=== PATIENT | male | born 1985 | race Caucasian/White ===

== ENCOUNTER 2024-04-14 14:46 | Outpatient (AMB) | payer MEDICAID, SELFPAY ==
[2024-04-14 14:55] VITALS: BP 150/100; PULSE 101; O2SAT 96; BMI 34.7
--- NOTE | 2024-04-14 14:55 | HO.NEPHOV_ITS ---
Vital Signs 04/14/24 14:55 Height 5 ft 8 in Weight 228 lb 6 oz BMI 34.7 BP 150/100 H Blood Pressure Location Lt brachial Position Sitting Pulse 101 H Pulse Source Pulse Oximeter Pulse Oximetry (%) 96 Oxygen Delivery Method Room Air Intake Visit Reasons: Renal Infarct/ Conf Spring Internship Required: No Accompanied by: Self / Same As Patient Allergies No Known Allergies Allergy (Verified 04/14/24 14:58) HPI Comments Details: Thank you for referring Eyal in consultation for renal infarction. He presented to [facility] Emergency room with left flank pain. He underwent CT scan with contrast which showed renal infarction as well as mural thrombus in the left renal artery most likely secondary to dissection. He has history hypertension and has been on clonidine which he takes for his mental health treatment. He has history of cocaine use. He has no history of any peripheral arterial disease, DVT, autoimmune diseases, renal dysfunction, coronary artery disease, carotid stenosis, CVA, CHF or known LUDWIN. He underwent anticoagulation during the hospital stay and was seen by the vascular surgery team in [facility]. He was asked to continue his anticoagulation and follow-up with his PCP. He is currently pain free. He does not have any hematuria. His blood pressure remains uncontrolled. He denies chest pain, shortness of breath, paroxysmal nocturnal dyspnea, orthopnea, pedal edema, orthostatic symptoms, palpitation or urinary symptoms. [facility] Medical History (Updated 04/14/24 @ 20:40 by Jonathan Wall MD) Testicular cyst Elevated blood pressure reading Renal infarct Severe anxiety Hepatic steatosis Periportal lymphadenopathy History of cocaine use Bipolar depression Sleep apnea Gout Class 2 obesity Allergic rhinitis Degenerative arthritis of lumbar spine Internal hemorrhoid Surgical History (Updated 04/14/24 @ 15:10 by Rebecca Reinoso MA) History of vasectomy H/O: knee surgery Status post gastric banding Family History (Updated 04/14/24 @ 15:10 by Rebecca Reinoso MA) Mother Diabetes Breast cancer Brother Diabetes Social History (Updated 04/14/24 @ 15:12 by Rebecca Reionso MA) Alcohol intake: former Patient Tobacco Use Status: Current everyday Tobacco user Substance Use Type: Former Substance User and Marijuana Review of Systems Const All systems reviewed & are unremarkable except as noted in HPI and below Physical Exam Vital Signs: Last Vital Signs Pulse 101 H 04/14/24 14:55 BP 150/100 H 04/14/24 14:55 Pulse Ox 96 04/14/24 14:55 Oxygen Delivery Method Room Air 04/14/24 14:55 BMI result Body Mass Index 34.7 Const General: comfortable and no acute distress Orientation/consciousness: patient oriented x3 HEENT Head: Yes normocephalic Mouth: Normal oral and palatal mucosa present Eyes EOM: EOMs intact bilaterally Neck Neck: Yes supple Resp Auscultation: clear to auscultation bilaterally Cardio Jugular venous distension: no JVD Rate: regular rate GI Palpation (GI): Soft to palpation Auscultation: normal bowel sounds General: Yes no CVA tenderness Back/Spine/Pelvis Back: no CVA tenderness Skin General skin exam: no rashes or lesions noted Neuro General: patient oriented x3 and moves all extremities Extrem General: Yes no pedal edema Results Reviewed Nephrology Results: No Data to Display Assessment & Plan Assessment & Plan (1) Renal infarct: Code(s): N28.0 - Ischemia and infarction of kidney Category: Medical (2) Dissection of left renal artery: Code(s): I77.73 - Dissection of renal artery Category: Medical (3) Hypertension: Code(s): I10 - Essential (primary) hypertension Category: Medical Qualifiers: Hypertension type: primary hypertension Qualified Code(s): I10 - Essential (primary) hypertension Plan 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 His serum creatinine has gone up marginally from baseline. He was an ticoagulated initially with heparin which was subsequently switched to Xarelto. He has had history of cocaine use. He has a Hematology appointment pending. I referred him to Dr. Garcia who is the vascular surgeon in [facility]. He may need repeat imaging studies. Vascular surgery needs to evaluate whether he is a candidate for renal artery stenting. He should avoid nonsteroidal anti- inflammatories, maintain good hydration and keep his blood pressure at goal. Even though he has been on clonidine(which he takes for mental health treatment), his blood pressure remains uncontrolled. His fluctuant blood pressure currently renin mediated. I would not start him on on any KIMBERLY inhibitor or ARB at this moment but is a candidate for it in the future. I started him on amlodipine 5 mg once daily which could be titrated to 10 mg to keep his blood pressure at goal of less than 130/80 mmHg. Time spent retrieving all his imaging studies, medical record from [facility], current patient encounter and documentation 63 minutes. All questions answered. Follow-up appointment given. Orders: Orders Protein S Activity reflex Ag Today I10 - Essential (primary) hypertension, I77.73 - Dissection of renal artery, N28.0 - Ischemia and infarction of kidney Cardiolipin Antibodies Today I10 - Essential (primary) hypertension, I77.73 - Dissection of renal artery, N28.0 - Ischemia and infarction of kidney Lupus Anticoagulant Panel Today I10 - Essential (primary) hypertension, I77.73 - Dissection of renal artery, N28.0 - Ischemia and infarction of kidney Anti-Thrombin III Activity Today I10 - Essential (primary) hypertension, I77.73 - Dissection of renal artery, N28.0 - Ischemia and infarction of kidney Electrolytes Today I10 - Essential (primary) hypertension, I77.73 - Dissection of renal artery, N28.0 - Ischemia and infarction of kidney Creatinine Today I10 - Essential (primary) hypertension, I77.73 - Dissection of renal artery, N28.0 - Ischemia and infarction of kidney Protein C Activity Reflex Ag Today I10 - Essential (primary) hypertension, I77.73 - Dissection of renal artery, N28.0 - Ischemia and infarction of kidney Beta-2 Glycoprotein Antibody Today I10 - Essential (primary) hypertension, I77.73 - Dissection of renal artery, N28.0 - Ischemia and infarction of kidney Factor V Leiden Today I10 - Essential (primary) hypertension, I77.73 - Dissection of renal artery, N28.0 - Ischemia and infarction of kidney Blood Urea Nitrogen Today I10 - Essential (primary) hypertension, I77.73 - Dissection of renal artery, N28.0 - Ischemia and infarction of kidney UA and rflx microscopic Today I10 - Essential (primary) hypertension, I77.73 - Dissection of renal artery, N28.0 - Ischemia and infarction of kidney Lipid Panel Today I10 - Essential (primary) hypertension, I77.73 - Dissection of renal artery, N28.0 - Ischemia and infarction of kidney Referrals Vascular Surgery Referral I10 - Essential (primary) hypertension, I77.73 - Dissection of renal artery, N28.0 - Ischemia and infarction of kidney Medications: New amlodipine 5 mg PO DAILY 30 tabs 3RF Coding Level of Care Code New Pt Level 5 (29761) Diagnoses Renal infarct N28.0 Dissection of left renal artery I77.73 Primary hypertension I10 Hypertension type: primary hypertension
== END 2024-04-14 16:07 | disposition home or self-care (01) ==
PROVIDERS: PCP Registered Nurse; Referring Provider Registered Nurse; Visit Provider Internal Medicine Nephrology
DX: N28.0 Ischemia and infarction of kidney (principal); I77.73 Dissection of renal artery; I10 Essential (primary) hypertension
CPT/HCPCS: 99205

== ENCOUNTER → 2024-04-14 14:46 | Outpatient (BNVA) | payer MEDICAID, SELFPAY | PROVIDERS: PCP Registered Nurse; Referring Provider Registered Nurse; Visit Provider Internal Medicine Nephrology | DX: N28.0 Ischemia and infarction of kidney (principal); I77.73 Dissection of renal artery; I10 Essential (primary) hypertension | CPT/HCPCS: 99202 ==

== ENCOUNTER → 2024-04-22 13:58 | Outpatient (BNV) | payer MEDICAID, SELFPAY | PROVIDERS: PCP Registered Nurse; Referring Provider Registered Nurse; Visit Provider Internal Medicine | DX: N28.0 Ischemia and infarction of kidney (principal) | CPT/HCPCS: 99204 ==

== ENCOUNTER 2024-04-22 14:46 | Outpatient (REF) | payer MEDICAID, SELFPAY ==
[2024-04-22 15:14] LABS: MANUAL DIFF FLAG NO
[2024-04-22 15:39] LABS: Appearance Urine Clear; Color Urine Yellow; Glucose Urine UA Negative (Negative); Leukocyte Esterase Urine Negative (Negative); Nitrite Urine Negative (Negative); Specific Gravity - Urine 1.025 (1.005-1.025); UMIC TRIGGER UACC YES; Urine Blood Moderate (2+) (Negative); Urine Ketones Negative (Negative); Urine Protein Trace mg/dL (Neg-Trace)
[2024-04-22 15:46] LABS: Bacteria Urine None Seen (None Seen); Hyaline Casts Urine 0-2 /LPF (0-2); RBC Urine >20 /HPF (0-2); Squamous Epithelial Cell Urine 0-2 /HPF (0-2); WBC Urine 0-5 /HPF (0-5)
[2024-04-22 15:52] LABS: Basophils Percent Auto 0.4 % (0-2); Eosinophils Absolute Auto 0.1 X10*3/uL (0.0-0.4); Eosinophils Percent Auto 1.3 % (0-4); Hematocrit 38.3 % (42.0-52.0); Hemoglobin 13.8 g/dl (14.0-18.0); Imm Gran Abs Auto 0.01 X10*3/uL (0.00-0.03); Imm Gran Pct Auto 0.1 % (0.0-0.4); Lymphocytes Percent Auto 28.4 % (20-40); Mean Corpuscular Hemoglobin 31.7 pg (27.0-33.0); Mean Corpuscular Volume 87.8 fL (80.0-98.0); Mean Platelet Volume 8.5 fL (9.4-12.4); Monocytes Absolute Auto 0.6 X10*3/uL (0.1-1.2); Neutrophils Absolute Auto 4.3 x10*3/uL (2.0-8.3); Neutrophils Percent Auto 61.8 % (45-73); Platelet Count 370 X10*3/uL (160-400); Red Blood Count 4.36 X10*6/uL (4.60-5.80); Red Cell Distribution Width 13.4 % (11.0-16.0)
[2024-04-22 15:58] LABS: INTERNATIONAL NORM RATIO 1.3 (0.9-1.1); Prothrombin Time 15.4 SEC (11.1-13.3)
[2024-04-22 16:01] LABS: Partial Thromboplastin Time 42.8 SEC (26.0-36.8)
[2024-04-22 16:04] LABS: Alanine Aminotransferase 27 U/L (0-40); Albumin Level 4.5 g/dL (3.5-5.0); Alkaline Phosphatase 77 U/L (39-117); Anion Gap 12 (12-20); Aspartate Amino Transferase 24 U/L (5-37); Bilirubin Total 0.3 mg/dL (0.0-1.0); Blood Urea Nitrogen 9 mg/dL (9-16); Calcium 9.7 mg/dL (8.4-10.2); Carbon Dioxide 23 mmol/L (22-29); Chloride 107 mmol/L (96-108); Cholesterol 179 mg/dL (<200); Estimated Glomerular Filt Rate > 60; Glucose Random 91 mg/dL (60-115); HDL Cholesterol 40 mg/dL (>40); Iron 34 mcg/dL (45-160); LDL Cholesterol Calculated 111 mg/dL (<100); Percent Iron Saturation 11 % (15-50); Potassium 3.2 mmol/L (3.3-5.1); Sodium 139 mmol/L (135-145); Total Iron Binding Capacity 316 mcg/dL (228-428); Total Protein 7.9 g/dL (6.5-8.0); Triglycerides 140 mg/dL (<150); Unsaturated Iron Binding 282 ug/dL
[2024-04-22 16:11] LABS: Cholesterol 178 mg/dL (<200); HDL Cholesterol 42 mg/dL (>40); LDL Cholesterol Calculated 108 mg/dL (<100); Triglycerides 142 mg/dL (<150)
[2024-04-22 16:25] LABS: Ferritin 34 ng/mL (20-250); TSH reflex Free T4 0.79 uIU/mL (0.32-4.0); Vitamin D 25-OH Total 39.2 ng/mL (>30)
[2024-04-23 05:05] LABS: HBS Num1 10.42 mIU/mL (0-7.99); HBc Num1 0.11 S/CO (0.00-0.79); HBsAGNum1 0.32 S/CO (0.00-0.99); Hepatitis B Core Antibody Nonreactive (Nonreactive); Hepatitis B Surface Antigen Negative (Negative); ~HepC Num1 0.13 S/CO (0.00-0.79); ~Hepatitis C Antibody Nonreactive (Nonreactive)
[2024-04-23 06:10] LABS: HBS Num2 9.88 mIU/mL (0-7.99); HBS Num3 10.03 mIU/mL (0-7.99); ~Hepatitis B Surface Antibody GRAYZONE (Nonreactive)
[2024-04-26 21:53] LABS: Anti-Thrombin III Activity 116 % normal (80-135); Protein C Activity 143 % normal (70-180); Protein S Activity rflx Tot&Fr 138 % normal (70-150)
[2024-04-29 07:23] LABS: Cardiolipin IgG Ab <2.0 GPL-U/mL; Cardiolipin IgM Ab 2.4 MPL-U/mL
[2024-04-29 12:09] LABS: Factor V Leiden NEGATIVE
[2024-04-30 16:43] LABS: DRVVT Confirmation Negative (Negative); Hexagonal Phase Neutralization Weak Positive (Negative)
[2024-04-30 17:17] LABS: PTT (LAC) Screen 49 sec (<=40); Thrombin Clotting Time 17 sec (13-19)
[2024-05-01 16:28] LABS: FIB-ALT 25 U/L (9-46); FIB-Alpha-2-Macroglobulin 242 mg/dL (106-279); FIB-Apolipoprotein A1 147 mg/dL (94-176); FIB-GGT 47 U/L (3-90); FIB-Haptoglobin 145 mg/dL (43-212); FIB-Total Bilirubin 0.3 mg/dL (0.2-1.2); Liver Fibrosis Score 0.19; Liver Fibrosis Stage F0; Nec Inflam Act Grade A0
[2024-05-08 06:43] LABS: Beta-2 Glycoprotein IgA <2.0 U/mL (<20.0); Beta-2 Glycoprotein IgG <2.0 U/mL (<20.0); Beta-2 Glycoprotein IgM <2.0 U/mL (<20.0)
== END 2024-04-22 14:47 | disposition home or self-care (01) ==
LOC: HO.LAB 14:46
PROVIDERS: PCP Registered Nurse; Referring Provider Registered Nurse; Visit Provider Internal Medicine Nephrology
DX: Z00.00 Encounter for general adult medical examination without abnormal findings (principal); I10 Essential (primary) hypertension; N28.0 Ischemia and infarction of kidney; I77.73 Dissection of renal artery; K76.0 Fatty (change of) liver, not elsewhere classified; E61.1 Iron deficiency; E55.9 Vitamin D deficiency, unspecified; D72.829 Elevated white blood cell count, unspecified
CPT/HCPCS: 36415; 80053; 80061; 81001; 81241; 81596; 82306; 82728; 83540; 84443; 85025; 85300; 85302; 85303; 85306; 85597; 85598; 85610; 85613; 85670; 85730; 86146; 86147; 86704; 86706; 86803; 87340

== ENCOUNTER 2024-06-03 10:05 | Outpatient (AMB) | payer MEDICAID, SELFPAY ==
--- NOTE | 2024-06-03 10:49 | HO.NEPHOV_ITS ---
Vital Signs 06/03/24 10:50 Height 5 ft 8 in Weight 236 lb 4 oz BMI 35.9 BP 130/90 H Blood Pressure Location Lt brachial Position Sitting Pulse 107 H Pulse Source Pulse Oximeter Pulse Oximetry (%) 97 Oxygen Delivery Method Room Air Intake Visit Reasons: Early May w/ labs-Conf Final Assembly And Packing Supervisor Required: No Accompanied by: Self / Same As Patient Allergies No Known Allergies Allergy (Verified 06/03/24 10:52) HPI Comments Details: Eyal was seen in follow up for renal infarction. In the past he presented to [facility] Emergency room with left flank pain. He underwent CT scan with contrast which showed renal infarction as well as mural thrombus in the left renal artery most likely secondary to dissection. He has history hypertension and has been on clonidine which he takes for his mental health treatment. He has history of cocaine use. He has no history of any peripheral arterial disease, DVT, autoimmune diseases, renal dysfunction, coronary artery disease, carotid stenosis, CVA, CHF or known LUDWIN. He underwent anticoagulation during the hospital stay and was seen by the vascular surgery team in [facility]. He was asked to continue his anticoagulation and follow-up with his PCP. He is currently pain free. He does not have any hematuria. His blood pressure remains uncontrolled. He denies chest pain, shortness of breath, paroxysmal nocturnal dyspnea, orthopnea, pedal edema, orthostatic symptoms, palpitation or urinary symptoms [facility] Medical History (Updated 04/22/24 @ 15:02 by Taty Coates MD) Testicular cyst Elevated blood pressure reading Renal infarct Severe anxiety Hepatic steatosis Periportal lymphadenopathy History of cocaine use Bipolar depression Sleep apnea Gout Class 2 obesity Allergic rhinitis Degenerative arthritis of lumbar spine Internal hemorrhoid Surgical History History of vasectomy H/O: knee surgery Status post gastric banding Family History Mother Diabetes Breast cancer Brother Diabetes Social History Alcohol intake: former Patient Tobacco Use Status: Current everyday Tobacco user Substance Use Type: Former Substance User and Marijuana Review of Systems Const All systems reviewed & are unremarkable except as noted in HPI and below Physical Exam Vital Signs: Last Vital Signs Pulse 107 H 06/03/24 10:50 BP 130/90 H 06/03/24 10:50 Pulse Ox 97 06/03/24 10:50 Oxygen Delivery Method Room Air 06/03/24 10:50 BMI result Body Mass Index 35.9 Const General: comfortable and no acute distress Orientation/consciousness: patient oriented x3 HEENT Head: Yes normocephalic Mouth: Normal oral and palatal mucosa present Eyes EOM: EOMs intact bilaterally Neck Neck: Yes supple Resp Auscultation: clear to auscultation bilaterally Cardio Jugular venous distension: no JVD Rate: regular rate GI Palpation (GI): Soft to palpation Auscultation: normal bowel sounds General: Yes no CVA tenderness Back/Spine/Pelvis Back: no CVA tenderness Skin General skin exam: no rashes or lesions noted Neuro General: patient oriented x3 and moves all extremities Extrem General: Yes no pedal edema Results Reviewed Nephrology Results: Hgb 13.8 g/dl (14.0-18.0) L 04/22/24 WBC 7.0 X10*3/uL (4.8-10.8) 04/22/24 Plt Count 370 X10*3/uL (160-400) 04/22/24 Sodium 139 mmol/L (135-145) 04/22/24 Potassium 3.2 mmol/L (3.3-5.1) L 04/22/24 Chloride 107 mmol/L (96-108) 04/22/24 Carbon Dioxide 23 mmol/L (22-29) 04/22/24 BUN 9 mg/dL (9-16) 04/22/24 Creatinine 0.98 mg/dL (0.5-1.4) 04/22/24 Calcium 9.7 mg/dL (8.4-10.2) 04/22/24 Urine Protein Trace mg/dL (Neg-Trace) 04/22/24 Assessment & Plan Assessment & Plan (1) Hypertension: Code(s): I10 - Essential (primary) hypertension Category: Medical Qualifiers: Hypertension type: primary hypertension Qualified Code(s): I10 - Essential (primary) hypertension (2) Renal infarct: Code(s): N28.0 - Ischemia and infarction of kidney Category: Medical (3) Dissection of left renal artery: Code(s): I77.73 - Dissection of renal artery Category: Medical Plan Eyal had left renal artery dissection with thrombus and renal function. His serum creatinine has gone up marginally from baseline but stable now. He was anticoagulated initially with heparin which was subsequently switched to Xarelto. He has had history of cocaine use. He has seen Hematology. He has an appointment Dr. Garcia who is the vascular surgeon in [facility]. He may need repeat imaging studies. Vascular surgery needs to evaluate whether he is a candidate for renal artery stenting. He should avoid nonsteroidal anti- inflammatories, maintain good hydration and keep his blood pressure at goal. His fluctuant blood pressure currently renin mediated. I would not start him on on any KIMBERLY inhibitor or ARB at this moment but is a candidate for it in the future. His blood pressure needs to kept at goal of less than 130/80 mmHg. All questions answered. Follow-up appointment given Orders: Orders Creatinine 6 Months I10 - Essential (primary) hypertension, I77.73 - Dissection of renal artery, N28.0 - Ischemia and infarction of kidney Electrolytes 6 Months I10 - Essential (primary) hypertension, I77.73 - Dissection of renal artery, N28.0 - Ischemia and infarction of kidney Blood Urea Nitrogen 6 Months I10 - Essential (primary) hypertension, I77.73 - Dissection of renal artery, N28.0 - Ischemia and infarction of kidney Coding Level of Care Code Est Pt Level 4 (82526) Diagnoses Primary hypertension I10 Hypertension type: primary hypertension Renal infarct N28.0 Dissection of left renal artery I77.73
[2024-06-03 10:50] VITALS: BP 130/90; PULSE 107; O2SAT 97; BMI 35.9
== END 2024-06-03 11:11 | disposition home or self-care (01) ==
PROVIDERS: PCP Registered Nurse; Visit Provider Internal Medicine Nephrology
DX: I10 Essential (primary) hypertension (principal); N28.0 Ischemia and infarction of kidney; I77.73 Dissection of renal artery
CPT/HCPCS: 99214

== ENCOUNTER → 2024-06-03 10:05 | Outpatient (BNVA) | payer MEDICAID, SELFPAY | PROVIDERS: PCP Registered Nurse; Visit Provider Internal Medicine Nephrology | DX: N28.0 Ischemia and infarction of kidney (principal); I77.73 Dissection of renal artery; I10 Essential (primary) hypertension | CPT/HCPCS: 99212 ==

== ENCOUNTER 2024-06-06 08:08 | Outpatient (AMB) | payer MEDICAID, SELFPAY ==
--- NOTE | 2024-06-06 08:35 | A.OFFVIS_ITS ---
Intake Visit Reasons: gross hematuria Intake Note: Patient is present for GROSS HEMATURIA Urology Medication: Antibiotic Allergy:NONE Blood Thinner:NONE Drilling Manager Required: No Allergies No Known Allergies Allergy (Verified 06/06/24 08:36) HPI Comments Details: Eyal is a 39-year-old male who is here for evaluation for gross hematuria. I have discussed reasons for blood in the urine may include but are not limited to kidney stones, cancer in the urinary tract, BPH, or inflammatory conditions of the urinary tract. I have discussed workup to include cystoscopy evaluation. He had recent CTA-history of left renal infarct, no suspicious renal masses noted. Will schedule cystoscopy in the OR possible bladder biopsy. [facility] Medical History Testicular cyst Elevated blood pressure reading Renal infarct Severe anxiety Hepatic steatosis Periportal lymphadenopathy History of cocaine use Bipolar depression Sleep apnea Gout Class 2 obesity Allergic rhinitis Degenerative arthritis of lumbar spine Internal hemorrhoid Surgical History History of vasectomy H/O: knee surgery Status post gastric banding Family History Mother Diabetes Breast cancer Brother Diabetes Social History Alcohol intake: former Patient Tobacco Use Status: Current everyday Tobacco user Substance Use Type: Former Substance User and Marijuana Review of Systems Const All systems reviewed & are unremarkable except as noted in HPI and below Reports no additional complaints Eyes Reports no additional complaints ENT Reports no additional complaints Card Reports no additional complaints Resp Reports no additional complaints GI Reports no additional complaints Reports as per HPI Musc Reports no additional complaints Skin/Breast Reports system reviewed and no additional complaints, except as documented Neuro Reports no additional complaints Psych Reports no additional complaints Endo Reports no additional complaints Harsh/Lymph Reports no additional complaints Aller/Immun Reports no additional complaints Physical Exam Const General: healthy appearing, no acute distress and well developed Nutritional Appearance: overweight Orientation/consciousness: patient oriented x3 HEENT Head: Yes normocephalic and Yes atraumatic Eyes Conjunctivae: conjunctivae normal Neck Neck: Yes normal visual inspection Chest Chest palpation & inspection: normal inspection of the chest Resp Effort & Inspection: normal respiratory effort Cardio Rate: regular rate GI Inspection: Yes normal to inspection Neuro General: patient oriented x3 Extrem General: No pedal edema Psych Appearance: grossly normal Affect: normal affect Results AMB Urinalysis, Automated UA Leukoctes 0 Cheryl/uL Last Edit by AMADOR Sauceda on 06/06/24 08:48 UA Nitrite Negative Last Edit by AMADOR Sauceda on 06/06/24 08:48 UA Urobilinogen 0.2 mg/dL Last Edit by AMADOR Sauceda on 06/06/24 08:4 8 UA Protein 15 mg/dL Last Edit by AMADOR Sauceda on 06/06/24 08:48 UA pH 6.0 Last Edit by AMADOR Sauceda on 06/06/24 08:48 UA Blood 80 Xiang/uL Last Edit by AMADOR Sauceda on 06/06/24 08:48 UA Specific [place] 1.015 Last Edit by AMADOR Sauceda on 06/06/24 08: 48 UA Ketone Negative Last Edit by AMADOR Sauceda on 06/06/24 08:48 UA Bilirubin 0 mg/dL Last Edit by AMADOR Sauceda on 06/06/24 08:48 UA Glucose 0 mg/dL Last Edit by AMADOR Sauceda on 06/06/24 08:48 Results Reviewed Results Reviewed: Laboratory Last Values Urine pH (Auto) 6.0 06/06/24 08:46 Specific [place] (Auto) 1.015 06/06/24 08:46 Urine Protein (Auto) 15 mg/dL 06/06/24 08:46 Glucose (UA)(Auto) 0 mg/dL 06/06/24 08:46 Urine Ketones (Auto) Negative 06/06/24 08:46 Urine Blood (Auto) 80 Xiang/uL 06/06/24 08:46 Urine Nitrite (Auto) Negative 06/06/24 08:46 Urine Bilirubin (Auto) 0 mg/dL 06/06/24 08:46 Urine Urobilinogen (Auto) 0.2 mg/dL 06/06/24 08:46 Leukocyte Esterase (Auto) 0 Cheryl/uL 06/06/24 08:46 Assessment & Plan Assessment & Plan (1) Gross hematuria: Code(s): R31.0 - Gross hematuria Category: Medical Plan Schedule outpatient cystoscopy possible bladder biopsy Orders: Orders AMB Urinalysis Automated 06/06/24 Z13.9 - Encounter for screening, unspecified Patient Instructions: The patient had an opportunity to ask questions regarding treatment plan. The patient expressed understanding and agreement with the above treatment plan. The patient is aware they should contact our office by phone for worsening of their current condition or the appearance of new symptoms. Compliance is encouraged with any medications and followup testing that is ordered. It is a privilege to be allowed the opportunity to participate in the urologic care of your patient. If you have any questions or concerns regarding treatment for the above conditions please do not hesitate to contact me. The office telephone contact is [phone]. This note is constructed in part using voice recognition software. While every effort has been made to ensure accuracy deputy sheriff civil division errors may have been included. Yours sincerely, Rowena Green MD Coding Level of Care Code New Pt Level 4 (19351) Diagnoses Gross hematuria R31.0
== END 2024-06-06 09:32 | disposition home or self-care (01) ==
PROVIDERS: PCP Registered Nurse; Visit Provider Urology
DX: R31.0 Gross hematuria (principal)
CPT/HCPCS: 99204

== ENCOUNTER → 2024-06-06 08:08 | Outpatient (BNVA) | payer MEDICAID, SELFPAY | PROVIDERS: PCP Registered Nurse; Visit Provider Urology | DX: R31.0 Gross hematuria (principal) | CPT/HCPCS: 81003; 99202 ==

== ENCOUNTER 2024-07-15 09:13 | Day surgery (SDC) | payer MEDICAID, SELFPAY ==
--- NOTE | 2024-07-14 09:20 | HO.ANESPROP2 ---
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 He has history hypertension and has been on clonidine which he takes for his mental health treatment. He has history of cocaine use. He has no history of any peripheral arterial disease, DVT, autoimmune diseases, renal dysfunction, coronary artery disease, carotid stenosis, CVA, CHF or known LUDWIN. Folowing with Heme, Renal, pending vascular surgery referral for possible stent LUDWIN PMFSH Active Problems Active Problems: All Active Problems Gross hematuria (Acute) Hypertension (Acute) Dissection of left renal artery (Acute) Renal infarct (Acute) Past Medical History Medical History HTN (hypertension) Testicular cyst Elevated blood pressure reading Renal infarct Severe anxiety Hepatic steatosis Periportal lymphadenopathy History of cocaine use Bipolar depression Sleep apnea Gout Class 2 obesity Allergic rhinitis Degenerative arthritis of lumbar spine Internal hemorrhoid Family History Family History Mother Diabetes Breast cancer Brother Diabetes Surgical History Surgical History History of vasectomy H/O: knee surgery Status post gastric banding Social History Social History Alcohol intake: former Patient Tobacco Use Status: Current everyday Tobacco user Tobacco use type: Cigarette Cigarettes Per Day: 10 Use of substances other than those prescribed or required for medical reasons: Yes Substance Use Type: Former Substance User and Marijuana Substance Use Type Other:: smoked last used this am Are you DNR?: No Advance Directives: No Advance Directives Information Provided: Yes Recently lost weight without trying: No Meds Allergies Allergy/AdvReac Type Severity Reaction Status Date / Time No Known Allergies Allergy Verified 07/15/24 09:59 Home Medications ?Medication ?Instructions ?Recorded ?Confirmed ?Last Taken ?Type albuterol sulfate 90 mcg/actuation 1 puff inhalation QID PRN 04/14/24 07/15/24 Unknown History aerosol inhaler (Ventolin HFA) Shortness Of Breath Or Wheezing allopurinol 300 mg tablet 300 mg PO DAILY 04/14/24 07/15/24 Unknown History blood pressure test kit-large #1 ea 04/14/24 07/15/24 Unknown History buspirone 10 mg tablet 10 mg PO BID 04/14/24 07/15/24 Unknown History clonidine HCl 0.1 mg tablet 0.1 mg PO BID 04/14/24 07/15/24 Unknown History cyclobenzaprine 10 mg tablet 10 mg PO TID PRN Back Pain 04/14/24 07/15/24 Unknown History gabapentin 300 mg capsule 300 mg PO TID back pain 04/14/24 07/15/24 07/15/24 06:30 History lamotrigine 100 mg tablet 100 mg PO BID 04/14/24 07/15/24 07/15/24 06:30 History naltrexone 50 mg tablet 50 mg PO DAILY 04/14/24 07/15/24 Unknown History rivaroxaban 20 mg tablet (Xarelto) 20 mg PO DAILY 04/14/24 07/15/24 07/11/24 History trazodone 50 mg tablet 50 mg PO BEDTIME 04/14/24 07/15/24 Unknown History amlodipine 5 mg tablet 10 mg PO DAILY 06/03/24 07/15/24 07/15/24 06:30 History Exam Pertinent Lab Results Pertinent Lab Results: Laboratory Tests 04/22/24 15:12 WBC 7.0 Hgb 13.8 L Hct 38.3 L Plt Count 370 Sodium 139 Potassium 3.2 L Chloride 107 Carbon Dioxide 23 BUN 9 Creatinine 0.98 Assessment and Plan Assessment Anesthesia Assessment: Chart Reviewed Documented by User: Domenica Carrasco MD 07/15/24 12:44 [facility] Active Problems Active Problems: All Active Problems Gross hematuria (Acute) Hypertension (Acute) Dissection of left renal artery (Acute) Renal infarct (Acute) Smoker. Last this morning H/o ETOH abuse. Not for over a year. No longer on naltrexone H/o cocaine use- not for 1.5 years HELEN. Not using CPAP Past Medical History Medical History (Reviewed 07/15/24 @ 11: by Domenica Carrasco MD) HTN (hypertension) Testicular cyst Elevated blood pressure reading Renal infarct Severe anxiety Hepatic steatosis Periportal lymphadenopathy History of cocaine use Bipolar depression Sleep apnea Gout Class 2 obesity Allergic rhinitis Degenerative arthritis of lumbar spine Internal hemorrhoid Family History Family History (Reviewed 07/15/24 @ 11: by Domenica Carrasco MD) Mother Diabetes Breast cancer Brother Diabetes Family history of problems with anesthesia: No Surgical History Surgical History (Reviewed 07/15/24 @ 11: by Domenica Carrasco MD) History of vasectomy H/O: knee surgery Status post gastric banding History of Problems with Anesthesia: No Social History Social History (Reviewed 07/15/24 @ 11: by Domenica Carrasco MD) Alcohol intake: former Patient Tobacco Use Status: Current everyday Tobacco user Tobacco use type: Cigarette Cigarettes Per Day: 10 Use of substances other than those prescribed or required for medical reasons: Yes Substance Use Type: Former Substance User and Marijuana Substance Use Type Other:: smoked last used this am Are you DNR?: No Advance Directives: No Advance Directives Information Provided: Yes Recently lost weight without trying: No Meds Allergies Allergy/AdvReac Type Severity Reaction Status Date / Time No Known Allergies Allergy Verified 07/15/24 09:59 Home Medications ?Medication ?Instructions ?Recorded ?Confirmed ?Last Taken ?Type albuterol sulfate 90 mcg/actuation 1 puff inhalation QID PRN 04/14/24 07/15/24 Unknown History aerosol inhaler (Ventolin HFA) Shortness Of Breath Or Wheezing allopurinol 300 mg tablet 300 mg PO DAILY 04/14/24 07/15/24 Unknown History blood pressure test kit-large #1 ea 04/14/24 07/15/24 Unknown History buspirone 10 mg tablet 10 mg PO BID 04/14/24 07/15/24 Unknown History clonidine HCl 0.1 mg tablet 0.1 mg PO BID 04/14/24 07/15/24 Unknown History cyclobenzaprine 10 mg tablet 10 mg PO TID PRN Back Pain 04/14/24 07/15/24 Unknown History gabapentin 300 mg capsule 300 mg PO TID back pain 04/14/24 07/15/24 07/15/24 06:30 History lamotrigine 100 mg tablet 100 mg PO BID 04/14/24 07/15/24 07/15/24 06:30 History naltrexone 50 mg tablet 50 mg PO DAILY 04/14/24 07/15/24 Unknown History rivaroxaban 20 mg tablet (Xarelto) 20 mg PO DAILY 04/14/24 07/15/24 07/11/24 History trazodone 50 mg tablet 50 mg PO BEDTIME 04/14/24 07/15/24 Unknown History amlodipine 5 mg tablet 10 mg PO DAILY 06/03/24 07/15/24 07/15/24 06:30 History Exam Height,Weight and Vital Signs: Height 5 ft 8 in Weight 102.965 kg Vital Signs Temp Pulse Resp BP Pulse Ox O2 Del Method 07/15/24 10:17 98.1 F 83 15 122/75 97 Room Air Pertinent Lab Results Pertinent Lab Results: Laboratory Tests 04/22/24 15:12 WBC 7.0 Hgb 13.8 L Hct 38.3 L Plt Count 370 Sodium 139 Potassium 3.2 L Chloride 107 Carbon Dioxide 23 BUN 9 Creatinine 0.98 Lab Results 07/15/24 Range/Units 09:50 Urine Opiates Screen Not Detected (Not Detect) Ur Buprenorphine Scrn Not Detected (Not Detect) ng/mL Ur Oxycodone Screen Not Detected (Not Detect) ng/mL Urine Methadone Screen Not Detected (Not Detect) ng/mL Urine Fentanyl Screen Not Detected (Not Detect) Ur Barbiturates Screen Not Detected (Not Detect) Ur Phencyclidine Scrn Not Detected (Not Detect) Ur Amphetamines Screen Not Detected (Not Detect) U Benzodiazepines Scrn Not Detected (Not Detect) Urine Cocaine Screen Not Detected (Not Detect) U Marijuana (THC) Screen POSITIVE H (Not Detect) Airway Mallampati Class: II TM Dist: >3cm Neck ROM: Full Loose/Missing/Broken Teeth: Yes (Missing teeth bottom back right. Denies broken or loose teeth) Heart: RRR Lungs: CTAB Assessment and Plan Assessment Anesthesia Assessment: Anesthesia Plan Discussed and Chart Reviewed Final Anesthetic Review Family History of Problems with Anesthesia: No History of Problems with Anesthesia: No NPO: Yes ASA Class: III Final Preanesthetic Review: No Changes in Pt Med Stat, Meds/Allgs Chart Reviewed, Consent Obtained/Reviewed and Anes Risks/Benef Reviewed Patient Risk: Intermediate Procedure Risk: Low Assessment/Block/Sedation in SS: Assess/Block/Sedation-SS Anesthetic Plan Anesthetic Plan: GA Disposition: Standard PACU
[2024-07-15 10:17] VITALS: BP 122/75; PULSE 83; RESP 15; TEMP 36.7; O2SAT 97; BMI 34.5
[2024-07-15 10:25] LABS: Amphetamine Screen Urine Not Detected (Not Detect); Barbiturates, Urine Not Detected (Not Detect); Benzodiazepines Screen Urine Not Detected (Not Detect); Buprenorphine Scr Not Detected (Not Detect); Cannabinoid Screen Urine POSITIVE (Not Detect); Cocaine Screen Urine Not Detected (Not Detect); Fentanyl, urine Not Detected (Not Detect); Methadone Screen, Urine Not Detected (Not Detect); Opiate Screen Urine Not Detected (Not Detect); Oxycodone Screen Urine Not Detected (Not Detect); Phencyclidine Screen Urine Not Detected (Not Detect)
[2024-07-15] MEDS: Lactated Ringers 1,000 ML 100 ML IVCONT (10:31)
--- NOTE | 2024-07-15 12:11 | MHC.SHP ---
Pre-Procedural Eval Section A - 24 Hr Update-Section A only Date of Service: 07/15/24 The patient is an INPATIENT: No The patient has been examined within 24 hours of the surgical procedure. The History & Physical has been completed within 30 days and I have reviewed it.: Yes Section B - Complete if H&P > 30 days Chief Complaint: Gross hematuria Allergies: Allergies Allergy/AdvReac Type Severity Reaction Status Date / Time No Known Allergies Allergy Verified 07/15/24 09:59 Plan Diagnosis/Plan: Unchanged I have reviewed the history and physical and performed a pertinent physical examination on my patient. No changes have occurred unless specified. Cystoscopy. Discussed risks to include but not limited to, blood in the urine, burning with urination, urgency. Time Spent With Patient Time: Total time managing care of this patient today ____ minutes.
[2024-07-15 13:02] VITALS: BP 120/75; PULSE 66; RESP 17; TEMP 36.9; O2SAT 97
--- NOTE | 2024-07-15 13:02 | MHC.SHP ---
Pre-Procedural Eval Section A - 24 Hr Update-Section A only Date of Service: 07/15/24 Section B - Complete if H&P > 30 days Chief Complaint: Gross hematuria Allergies: Allergies Allergy/AdvReac Type Severity Reaction Status Date / Time No Known Allergies Allergy Verified 07/15/24 09:59 Plan I have reviewed the history and physical and performed a pertinent physical examination on my patient. No changes have occurred unless specified. Time Spent With Patient Time: Total time managing care of this patient today ____ minutes.
--- NOTE | 2024-07-15 13:04 | W.PM.OPN ---
Operative Note Operative Note Date of Service: 07/15/24 Narrative: PREOP DIAGNOSIS: Hematuria POSTOP DIAGNOSIS: Hematuria PROCEDURE: CYSTOSCOPY SURGEON: Rowena Green MD ANESTHESIA: General Indications: 39-year-old male here for evaluation for gross hematuria. history of left renal infarct, CT imaging no suspicious renal masses noted. Details of procedure: The patient was brought into the operating room placed on the OR table in supine position. 2 g of Ancef IV. General anesthesia was administered. The patient was repositioned into lithotomy position, prepped and draped in the usual sterile fashion. Time-out was done per protocol. A 22 fr cystoscope was placed transurethrally into the bladder. The bulbous urethra was within normal limits the prostatic urethra was nonobstructive. The right and left ureteral orifices were visualized. The entire bladder was visualized. Mild trabeculations noted, prominent vasculature. There were no suspicious bladder lesions seen. The cystoscope was removed. 2% lidocaine urojet was passed transurethrally into the bladder. The patient was brought out of anesthesia and taken to recovery in stable condition. Complications: None EBL: Minimal Drains: None
[2024-07-15 13:07] VITALS: BP 122/84; PULSE 76; RESP 16; O2SAT 97
[2024-07-15 13:12] VITALS: BP 113/69; PULSE 68; RESP 16; O2SAT 96
[2024-07-15 13:17] VITALS: BP 135/71; PULSE 68; RESP 16; O2SAT 98
[2024-07-15 13:32] VITALS: BP 133/89; PULSE 69; RESP 16; TEMP 36.9; O2SAT 98
--- NOTE | 2024-07-15 14:44 | PC.NURSE ---
PATIENT LEFT WITHOUT SIGNING DC VISIT INFORMATION BECAUSE THE DC ORDER WAS NOT PLACED IN THE COMPUTER. NOTE TO DR. KELLI YEUNG WHO DID PLACE AN ORDER IN THE COMPUTER AFTER COMPLETING A CASE, HOWEVER, PT DID NOT WANT TO WAIT AND HAD TO LEAVE R/T FAMILY AND CHILDREN. NO PRESCRIPTIONS WERE ORDERED.
== END 2024-07-15 14:23 | disposition home or self-care (01) ==
PROVIDERS: Nurse Practitioner; PCP Registered Nurse; Visit Provider Urology
PROC: (CPT 52000; principal; 2024-07-15 11:10)
DX: R31.0 Gross hematuria (principal); N28.0 Ischemia and infarction of kidney; N32.89 Other specified disorders of bladder; N44.2 Benign cyst of testis; M10.9 Gout, unspecified; K76.0 Fatty (change of) liver, not elsewhere classified; F41.9 Anxiety disorder, unspecified; R03.0 Elevated blood-pressure reading, without diagnosis of hypertension; F31.9 Bipolar disorder, unspecified; E66.812 Obesity, class 2; G47.30 Sleep apnea, unspecified; Z79.899 Other long term (current) drug therapy; Z98.84 Bariatric surgery status; Z98.52 Vasectomy status; F19.11 Other psychoactive substance abuse, in remission; F17.210 Nicotine dependence, cigarettes, uncomplicated
CPT/HCPCS: 52000; 80307; J0690; J2003; J2250; J2405; J2704; J3010

== ENCOUNTER → 2024-07-15 09:13 | Outpatient (BNV) | payer MEDICAID, SELFPAY | PROVIDERS: PCP Registered Nurse; Visit Provider Urology | DX: R31.0 Gross hematuria (principal) | CPT/HCPCS: 52000 ==

== ENCOUNTER 2024-07-28 08:12 | Outpatient (AMB) | payer MEDICAID, SELFPAY ==
--- NOTE | 2024-07-27 16:56 | A.OFFVIS_ITS ---
Intake Visit Reasons: Bladder biopsy results Intake Note: Patient Is Present for Post Op Follow up Procedure Done: Cystoscopy - no biopsy performed Urology Med: None Antibiotic Allergy: None Blood Thinner: Xarelto Patient states he has no discomfort Section Cutter Required: No Accompanied by: Self / Same As Patient Allergies No Known Allergies Allergy (Verified 07/28/24 09:06) HPI Comments Details: 07/28/24--s/p euwytlyfuk-xncyqvrpkc-yecftel biopsy was not performed. I have reviewed the cystoscopy findings with the patient. He denies any irritative voiding symptoms. The entire bladder was visualized. Mild trabeculations noted, prominent vasculature. There were no suspicious bladder lesions seen. I will send urine for cytology since that was not evaluated previously. As long as cytology within normal limits will follow-up on a p.r.n. basis. Review of chart: 06/06/24--Eyal is a 39-year-old male who is here for evaluation for gross hematuria. I have discussed reasons for blood in the urine may include but are not limited to kidney stones, cancer in the urinary tract, BPH, or inflammatory conditions of the urinary tract. I have discussed workup to include cystoscopy evaluation. He had recent CTA-history of left renal infarct, no suspicious renal masses noted. Will schedule cystoscopy in the OR possible bladder biopsy. [facility] Medical History HTN (hypertension) Testicular cyst Elevated blood pressure reading Renal infarct Severe anxiety Hepatic steatosis Periportal lymphadenopathy History of cocaine use Bipolar depression Sleep apnea Gout Class 2 obesity Allergic rhinitis Degenerative arthritis of lumbar spine Internal hemorrhoid Surgical History History of vasectomy H/O: knee surgery Status post gastric banding Family History Mother Diabetes Breast cancer Brother Diabetes Social History Alcohol intake: former Patient Tobacco Use Status: Current everyday Tobacco user Tobacco use type: Cigarette Cigarettes Per Day: 10 Substance Use Type: Former Substance User and Marijuana Review of Systems Const All systems reviewed & are unremarkable except as noted in HPI and below Reports no additional complaints Eyes Reports no additional complaints ENT Reports no additional complaints Card Reports no additional complaints Resp Reports no additional complaints GI Reports no additional complaints Reports as per HPI Musc Reports no additional complaints Skin/Breast Reports system reviewed and no additional complaints, except as documented Neuro Reports no additional complaints Psych Reports no additional complaints Endo Reports no additional complaints Harsh/Lymph Reports no additional complaints Aller/Immun Reports no additional complaints Results AMB Urinalysis, Automated UA Leukoctes 0 Cheryl/uL Last Edit by Kindra Peña [facility] on 07/28/24 09:23 UA Nitrite Negative Last Edit by Kindra Peña, A on 07/28/24 09:23 UA Urobilinogen 0.2 mg/dL Last Edit by Kindra Peña A on 07/28/24 09:2 3 UA Protein 15 mg/dL Last Edit by Kindra Peña A on 07/28/24 09:23 UA pH 6.0 Last Edit by Kindra Peña A on 07/28/24 09:23 UA Blood 200 Xiang/uL Last Edit by Kindra Peña [facility] on 07/28/24 09:23 UA Specific [place] 1.025 Last Edit by Kindra Peña A on 07/28/24 09: 23 UA Ketone Negative Last Edit by Kindra Peña [facility] on 07/28/24 09:23 UA Bilirubin 0 mg/dL Last Edit by Kindra Peña A on 07/28/24 09:23 UA Glucose 0 mg/dL Last Edit by Kindra Peña [facility] on 07/28/24 09:23 Assessment & Plan Assessment & Plan (1) Gross hematuria: Code(s): R31.0 - Gross hematuria Category: Medical Plan Outpatient cystoscopy-no suspicious bladder lesions. Urine cytology Orders: Orders Urine Cytology Today R31.0 - Gross hematuria AMB Urinalysis Automated Today Z13.9 - Encounter for screening, unspecified Patient Instructions: The patient had an opportunity to ask questions regarding treatment plan. The patient expressed understanding and agreement with the above treatment plan. The patient is aware they should contact our office by phone for worsening of their current condition or the appearance of new symptoms. Compliance is encouraged with any medications and followup testing that is ordered. It is a privilege to be allowed the opportunity to participate in the urologic care of your patient. If you have any questions or concerns regarding treatment for the above conditions please do not hesitate to contact me. The office telephone contact is [phone]. This note is constructed in part using voice recognition software. While every effort has been made to ensure accuracy croze machine operator errors may have been included. Yours sincerely, Rowena Green MD Coding Level of Care Code Est Pt Level 3 (19121) Diagnoses Gross hematuria R31.0
== END 2024-07-28 09:26 | disposition home or self-care (01) ==
PROVIDERS: PCP Registered Nurse; Visit Provider Urology
DX: R31.0 Gross hematuria (principal); Z13.9 Encounter for screening, unspecified
CPT/HCPCS: 99213

== ENCOUNTER 2024-07-28 08:12 | Outpatient (REF) | payer MEDICAID, SELFPAY ==
[2024-07-29 08:44] LABS: Urine Cytology See Pathology rpt
== END 2024-07-28 08:13 | disposition home or self-care (01) ==
LOC: HO.LAB 08:12
PROVIDERS: PCP Registered Nurse; Visit Provider Urology
DX: R31.0 Gross hematuria (principal)
CPT/HCPCS: 81003; 88112; 99212

== ENCOUNTER 2024-08-12 10:58 | Outpatient (AMB) | payer MEDICAID, SELFPAY ==
--- NOTE | 2024-08-12 11:03 | A.OFFVIS_ITS ---
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 Does have other back issues and is seeing pain kulwinder. He is also on eliquis and was seen by hematology here at [facility], also seen by in Nephrology who referred him here. Accompanied by: Self / Same As Patient Allergies No Known Allergies Allergy (Verified 08/12/24 11:12) HPI HPI ART PSYCHOTHERAPIST/Renal Ref for renal infarct: Details: Very pleasant 39-year-old gentleman with a history bipolar disorder presented to [facility] with left-sided flank pain. He was subsequently worked up and was noted to have a left renal infarct. There was question of a thrombus. At that time he was subsequently worked up by General surgery and vascular surgery. Of note he has a prior history of a lap band for obesity in 2007 at [facility]. In addition he does report a prior history of cocaine abuse which he has not used in about a year and a half. He denied any injectable drugs. Currently smokes about a pack to 2 packs daily. He is a nondiabetic. At the current time he denies any left flank pain. He now presents to us for vascular evaluation. [facility] Medical History HTN (hypertension) Testicular cyst Elevated blood pressure reading Renal infarct Severe anxiety Hepatic steatosis Periportal lymphadenopathy History of cocaine use Bipolar depression Sleep apnea Gout Class 2 obesity Allergic rhinitis Degenerative arthritis of lumbar spine Internal hemorrhoid Surgical History History of vasectomy H/O: knee surgery Status post gastric banding Family History Mother Diabetes Breast cancer Brother Diabetes Social History Alcohol intake: former Patient Tobacco Use Status: Current everyday Tobacco user Tobacco use type: Cigarette Cigarettes Per Day: 10 Substance Use Type: Former Substance User and Marijuana Review of Systems Const All systems reviewed & are unremarkable except as noted in HPI and below Reports no additional complaints ENT Reports Normal hearing present Card Denies chest pain, Denies chest pain at rest, Denies chest pain with activity and Denies pedal edema Resp Denies cough GI Denies abdominal pain Musc Denies abnormal gait, Denies muscle cramps and Denies radiating pain into limb Skin/Breast Denies skin ulcer and Denies wounds Neuro Reports Normal hearing present and Denies abnormal gait Psych Reports no additional complaints Physical Exam Vital Signs: BMI result Body Mass Index 35.6 Const General: cooperative, healthy appearing and comfortable Orientation/consciousness: oriented to person, oriented to place and oriented to time HEENT Head: Yes normal to inspection Neck Neck: Yes normal visual inspection Carotids: no bruits Chest Chest palpation & inspection: normal inspection of the chest Resp Effort & Inspection: normal respiratory effort and able to speak in complete sentences Auscultation: clear to auscultation bilaterally, no crackles, no rales, no rhonchi and no wheezes Cardio Other: Palpable dorsalis pedis pulses bilaterally Rate: regular rate Rhythm: regular rhythm Heart sounds: S1 normal heart sound present and S2 normal heart sound present Bruits: no carotid bruits Peripheral pulses: Peripheral pulses 2+ throughout GI Inspection: Yes normal to inspection Skin Wounds: no wounds Hair: normal Neuro General: oriented to person, oriented to place and oriented to time Cranial nerves: Yes CN's II-XII intact bilaterally and Yes Normal hearing present Cognition (Neuro): normal cognition Motor exam (neuro): 5/5 motor strength present throughout Extrem Other: venous exam: No significant superficial varicosities or spider telangiectasias, minimal edema General: No clubbing, No cyanosis and No edema Psych Appearance: grossly normal Mental Status: mental status grossly normal Speech and movement: Normal speech and movement present Results Reviewed Results Reviewed: CT scan dated 03/15/2024 demonstrates left renal infarct with equivocal filling defect of proximal left renal artery. This was written report reviewed only. I did not have access to images. Assessment & Plan Assessment & Plan (1) Renal infarct: Comment: left Code(s): N28.0 - Ischemia and infarction of kidney Category: Medical Plan: In short patient has history of left renal infarct. He is currently being maintained on anticoagulation of Xarelto. He reports no additional pain issues since this past summer. I would like to repeat CT angiogram to re-evaluate the status of this. He will follow up with us after testing. We did discuss the importance of risk factor modification and the avoidance of substance abuse. He demonstrated a clear understanding of this. Thank you for allowing us to assist in his care. If there are any questions or concerns please do not hesitate to contact us. Orders: Orders Creatinine Today N28.0 - Ischemia and infarction of kidney CT angio abdomen pelvis 1 Week N28.0 - Ischemia and infarction of kidney Blood Urea Nitrogen Today N28.0 - Ischemia and infarction of kidney Coding Level of Care Code New Pt Level 4 (19707) Complex EM visit Add On G2211 Diagnoses Renal infarct N28.0
[2024-08-12 11:08] VITALS: BMI 35.6
== END 2024-08-12 11:32 | disposition home or self-care (01) ==
PROVIDERS: PCP Registered Nurse; Visit Provider Surgery Vascular Surgery
DX: N28.0 Ischemia and infarction of kidney (principal)
CPT/HCPCS: 99204

== ENCOUNTER → 2024-08-12 10:58 | Outpatient (BNVA) | payer MEDICAID, SELFPAY | PROVIDERS: PCP Registered Nurse; Visit Provider Surgery Vascular Surgery | DX: N28.0 Ischemia and infarction of kidney (principal) | CPT/HCPCS: 99202 ==

== ENCOUNTER 2024-09-19 16:21 | Outpatient (REF) | payer MEDICAID, SELFPAY ==
--- OUTSIDE RECORDS SUMMARY | 2024-09-19 16:44 | XMS_ITS | Encounter Summary ---
Author Organization [employer] Address [address] [facility] 7[address] [place] [address] Care Team Providers Care Dairy Cattle Farm Manager Name Role Phone Stefanie Gibson Primary Care Provider [phone] Jonathan Wall MD Unavailable Rowena Kennedy MD Unavailable Taty Coates MD Unavailable [phone] Reason for Visit * Reason Onset Date Comments Med Refill 09/18/2024 Encounter Details Date Type Department Care Team ([facility] st Contact Info) Description 09/18/2024 Refill [facility] MED & PEDS [address] [place], [place] [phone] Stefanie Gibson FNP [address] [place], [place] [phone] Renal infarct (CMS/HCC) Social History Tobacco Use Types Packs/Day Years Used Date Smoking Tobacco: Every Day Cigarettes 0.5 29.1 Started: 1995 Smokeless Tobacco: Never Comments:Boxes Alcohol Use Standard Drinks/Week Comments Yes 2 (1 standard drink = 0.6 oz pur e alcohol) Occassionally-Socially Depression Answer Date Recorded Patient Health Questionnaire-9 Score 8 02/27/2024 Patient Health Questionnaire-9 Score 8 02/27/2024 Last PHQ-9: Questionnaire Data Not on file 0 02/27/2024 Housing Stability Answer Date Recorded What is your housing situation today? I have baldev bateman 06/13/[address] you li ve. Do you have problems with any of the following? None of the above 06/13/2023 Food Insecurity Answer Date Recorded Within the past 12 months, y ou worried that your food would run out before you got money to buy more: Never True 06/13/2023 Within the past 12 months,th e food you bought just didn't last and you didn't have enough money to get more: Never True Transportation Answer Date Recorded In the past 12 months, has l ack of transportation kept you from medical appts, meetings, work or from getting things needed for daily living? No 06/13/2023 Utilities Answer Date Recorded In the past 12 months, has t he electric, gas, oil or water company threatened to shut off services in your home? No 06/13/2023 Depression Answer Date Recorded Patient Health Questionnaire-2 Score 2 02/27/2024 Sex and Gender Information Value Date Recorded Sex Assigned at Male 06/26/2022 10:18 AM EDT Legal Sex Male 10:18 AM EDT Gender Identity Male 06/26/2022 10:18 AM EDT Sexual Orientation Straight 06/26/2022 10 :18 AM EDT documented as of this encounter Miscellaneous Notes * Telephone Encounter - Geri Reinoso RN - 09/19/2024 8:54 AM EST Telephone call placed to pt regarding below message. Informed per Hem/Onc, xarelto was supposed to be D/Cd 09/19/24 and replaced with Aspirin. Advised he call [facility]/Onc to confirm POC. Provided contact information for their office. Pt states will call them now. Advised he call us back as needed. 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 His anticoagulation is managed by [facility]. Per consult note Mar 2024, plan for him to be on Xarelto for 6 months (ending approx. 09/19/24) with transition to aspirin. Please let him know that he will have to follow up with Heme/Onc to determine if he needs to continue on the Xarelto or if he can be transitioned off at thistime. Thank you. documented in this encounter Plan of Treatment Not on file documented as of this encounter Visit Diagnoses Diagnosis Renal infarct (CMS/HCC) Vascular disorders of kidney documented in this encounter Additional Health Concerns Assessment Noted Time PHQ-9 Depression Total Score: 8 02/27/20 24 3:30 PM EDT documented as of this encounter Care Teams Dairy Cattle Farm Manager Relationship Specialty Start Date End Date Stefanie Gibson FNP [address] [place] [address] PCP - General Family Medicine 04/26/22 Jonathan Wall MD [address] [place] [address] Nephrology 08/11/24 Rowena Kennedy MD [address] [place] [address] Urology 08/11/24 Taty Coates MD [address] [place] [address] Hematology and Oncology 08/11/24 anthony stewart Hand DecoratorParcel Post Officer 12/06/23 documented as of this encounter
--- OUTSIDE RECORDS SUMMARY | 2024-09-19 16:44 | XMS_ITS | Encounter Summary ---
Author Organization [employer] Address [address] [facility] 7[address] [place] [address] Care Team Providers Care Journeyman Power Plant Operator Name Role Phone Stefanie Gibson STEEL CONSTRUCTION WORKER Primary Care Provider [phone] Jonathan Wall MD Unavailable Rowena Kennedy MD Unavailable Taty Coates MD Unavailable [phone] Reason for Visit * Reason Onset Date Comments PCP Request X-Ray records 09/17/2024 Encounter Details Date Type Department Care Team ([facility] Contact Info) Description 09/17/2024 Telephone [facility] MED & PEDS [address] [place], [place] [phone] Stefanie Gibson FNP [address] [place], [place] [phone] PCP Request X-Ray records Social History Tobacco Use Types Packs/Day Years [...] encounter Miscellaneous Notes * Telephone Encounter - Elle Quiroz [place] - 09/17/2024 2:37 PM EST Telephone call to [facility] to request X-ray of the right knee. No answer unavailable to left a message. ----- Message from Stefanie Gibson sent at 08/28/2024 8:46 PM EST ----- Please call [facility] to see when was his last visit for his right knee, and if they can please fax us the record. Thank you! documented in this encounter Plan of Treatment Not on file documented as of this encounter Visit Diagnoses Not on filedocumented in this encounter Additional Health Concerns Assessment Noted Time PHQ-9 Depression Total Score: 8 02/27/20 24 3:30 PM EDT documented as of this encounter Care Teams Journeyman Power Plant Operator Relationship Specialty Start Date End Date Stefanie Gibson FNP [address] [place] [phone] PCP - General Family Medicine 04/26/22 Jonathan Wall MD [address] [place] [address] Nephrology 08/11/24 Rowena Kennedy MD [address] [place] [address] Urology 08/11/24 Taty Coates MD [address] [place] [address] Hematology and Oncology 08/11/24 anthony stewart Cigarette MakerLadle Cleaner 12/06/23 documented as of this encounter
--- OUTSIDE RECORDS SUMMARY | 2024-09-19 16:44 | XMS_ITS | Encounter Summary ---
Author Organization [employer] Address [address] [facility] 7t [place] [address] Care Team Providers Care Fertilizing Machine Operator Name Role Phone Stefanie Gibson TIRE MAN Primary Care Provider [phone] Jonathan Wall MD Unavailable Rowena Kennedy MD Unavailable Taty Coates MD Unavailable [phone] Reason for Visit * Reason Comments Med Refill Encounter Details Date Type Department Care Team ([facility] st Contact Info) Description 08/11/2024 Refill [facility] CH[facility] MED & PEDS [address] [place], [place] [phone] Stefanie Gibson FNP [address] [place], [place] [phone] Renal infarct ([facility]/HCC) Social History Tobacco Use Types Packs/Day Years [...] AM EDT documented as of this encounter Plan of Treatment Not on file documented as of this encounter Visit Diagnoses Diagnosis Renal infarct (CMS/HCC) Vascular disorders of kidney documented in this encounter Additional Health Concerns Assessment Noted Time PHQ-9 Depression Total Score: 8 02/27/20 24 3:30 PM EDT documented as of this encounter Care Teams Fertilizing Machine Operator Relationship Specialty Start Date End Date Stefanie Gibson FNP [address] [place] [address] PCP - General Family Medicine 04/26/22 Jonathan Wall MD [address] [place] [address] Nephrology 08/11/24 Rowena Kennedy MD [address] [place] [address] Urology 08/11/24 Taty Coates MD [address] [place] [address] Hematology and Oncology 08/11/24 anthony stewart Photographer A[employer]vel[employer] Sales Representative 12/06/23 documented as of this encounter
--- OUTSIDE RECORDS SUMMARY | 2024-09-19 16:44 | XMS_ITS | Encounter Summary ---
Author Organization [employer] Address [address] [facility] 7t [place] [address] Care Team Providers Care Oliving Machine Operator Name Role Phone Stefanie Gibson Primary Care Provider [phone] Jonathan Wall MD Unavailable Rowena Kennedy MD Unavailable Taty Coates MD Unavailable [phone] Reason for Visit * Reason Onset Date Comments TC: Med Refill Request 09/18/2024 Encounter Details Date Type Department Care Team ([facility] Contact Info) Description 09/18/2024 Telephone [facility] MED & PEDS [address] [place], [place] [phone] Stefanie Gibson FNP [address] [place], [place] [phone] TC: Med Refill Request Social History Tobacco Use Types Packs/Day Years [...] encounter Miscellaneous Notes * Telephone Encounter - SANDRA Chaudhary - 09/18/2024 8:33 PM EST Received med refill request for Xarelto. 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 His anticoagulation is managed by [facility] Heme/Onc. Per consult note Mar 2024, plan for him to be on Xarelto for 6 months (ending approx. 09/19/24) with transition to aspirin. Please let him know that he will have to follow up with Heme/Onc to determine if he needs to continue on the Xarelto or if he can be transitioned off at this time. Thank you. documented in this encounter Plan of Treatment Not on file documented as of this encounter Visit Diagnoses Not on filedocumented in this encounter Additional Health Concerns Assessment Noted Time PHQ-9 Depression Total Score: 8 02/27/20 24 3:30 PM EDT documented as of this encounter Care Teams Oliving Machine Operator Relationship Specialty Start Date End Date Stefanie Gibson FNP [address] [place] [id number] PCP - General Family Medicine 04/26/22 Jonathan Wall MD [address] [place] [address] Nephrology 08/11/24 Rowena Kennedy MD [address] [place] [address] Urology 08/11/24 Taty Coates MD [address] [place] [address] Hematology and Oncology 08/11/24 anthony stewart Steam Shovel EngineerPower Cutting Machine Operator 12/06/23 documented as of this encounter
--- OUTSIDE RECORDS SUMMARY | 2024-09-19 16:44 | XMS_ITS | Clinical Summary ---
Author Organization [employer] Address [address] [place] [address] Care Team Providers Care Slip Dumper Name Role Phone Stefanie Gibson SANDRA Primary Care Provider [phone] Jonathan Wall MD Unavailable Rowena Kennedy MD Unavailable Taty Coates MD Unavailable [phone] Allergies Active Allergy Reactions Criticality Noted Date Comments Gramineae Pollens 09/24/2022 Medications * This document contains information received from the source organization and may not represent a complete record from that organization. Melatonin 3 MG capsule Take 9mg by mouth nightly PRN for sleep 90 capsule 3 Active naltrexone (Depade) 50 MG tablet Take 1 tablet (50 mg) by mouth Once daily. 30 tablet 1 3 Active traZODone (Desyrel) 50 MG tablet TAKE 1 TABLET BY MOUTH AT BEDTIME IF NEEDED FOR SLEEP 30 tablet 3 Active colchicine 0.6 MG tabletIndication s:Gout, unspecified cause, unspecified chronicity, unspecified site Take 1 tablet by oral route 3 times per day on Day #1 of flare, followed by 2 times per day until 2 days AFTER gout flare resolves 21 tablet 2 4 Active cyclobenzaprine (Flexeril) 10 MG tablet TAKE 1 TABLET BY MOUTH NEEDED EVERY MORNING AND AT NOON AND BEDTIME FOR MUSCLE SPASMS. 4 Active Blood Pressure kitIndications:E levated blood pressure reading Use to check blood pressure once daily and if symptomatic 1 kit 4 Active Xarelto 20 MG tabletIndication s:Renal infarct (CMS/HCC) TAKE 1 TABLET(20 MG) BY MOUTH WITH THE EVENING MEAL WITH FOOD 90 tablet 4 Active amLODIPine (Norvasc) 10 MG tablet Take 1 tablet (10 mg) by mouth Once per day. 90 tablet 1 4 05/19/20 25 Active busPIRone (Buspar) 10 MG tablet Take 1 tablet (10 mg) by mouth 2 times daily. 60 tablet 2 4 Active albuterol (Ventolin HFA) 108 (90 Base) MCG/ACT inhaler Inhale 2 puffs every 6 (six) hours if needed for wheezing. 18 g 11 4 Active gabapentin (Neurontin) 300 MG capsule TAKE 1 CAPSULE(300 MG) BY MOUTH THREE TIMES DAILY 90 capsule 5 4 Active lamoTRIgine (LaMICtal) 100 MG tablet Take 1 tablet (100 mg) by mouth 2 times daily. 60 tablet 2 4 Active cloNIDine (Catapres) 0.1 MG tablet Take 1 tablet (0.1 mg) by mouth 2 times daily. 60 tablet 3 4 Active allopurinol (Zyloprim) 300 MG tablet Take 1 tablet (300 mg) by mouth Once per day. 90 tablet 1 4 Active Active Problems Problem Noted Date Diagnosed Date Gross hematuria 08/28/2024 Overview (08/28/2024): Following with [facility] - Dr. Rowena Green. Cystoscopy completed Jun 2024. No suspicious bladder lesions identified Urine cytology: Jul 2024 - atypical urothelial cells. Irregular nuclear contours and coarse chromatin. 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 Large accessory left renal artery which is intact Following with [facility] - Dr. Jonathan Wall. Referred to vascular as may need repeat imaging studies and consideration of renal artery stenting. Avoid NSAID. Cont good hydration and BP control. Candidate for ARB in future. Following with [facility] Heme/Onc Dr. Coates. Last consult 04/22/24. suspect abdominal trauma and/or renal artery dissection could have caused the renal infarction. Plan for thrombophilia workup. Cont Xarelto 20mg daily x 6 months. Will then be transitioned to aspirin after 6 months of anticoagulation. Reviewed ED/urgent care precautions Assessment & Plan (04/28/2024 6:15 PM EDT): 03/17/24: CTA abdomen revealed left renal artery dissection. Large accessory left renal artery which is intact Following with [facility] - Dr. Jonathan Wall. Last consult 04/14/24. Referred to vascular as may need repeat imaging studies and consideration of renal artery stenting. Avoid NSAID. Cont good hydration and BP control Following with [facility] Heme/Onc Dr. Coates. Last consult 04/22/24. suspect abdominal trauma and/or renal artery dissection could have caused the renal infarction. Plan for thrombophilia workup. Cont Xarelto 20mg daily x 6 months. Will then be transitioned to aspirin after 6 months of anticoagulation. Reviewed ED/urgent care precautions Assessment & Plan (04/06/2024 12:35 PM EDT): 03/17/24: CTA abdomen revealed left renal artery dissection. Large accessory left renal artery which is intact Referral to Heme/Onc for input on duration of Xarelto and further eval Referral to Nephrology for further eval and management Reviewed ED/urgent care precautions Primary hypertension 04/06/2024 Assessment & Plan (08/28/2024 8:39 PM EST): BP goal < 130/80 mmHg Continue amlodipine 10mg daily Encourage tobacco cessation, low salt diet, physical activity as able ED precautions Assessment & Plan (04/28/2024 6:18 PM EDT): Multiple elevated BP readings in office as well as per home BP log BP goal < 130/80 mmHg, currently above goal Started on amlodipine 5mg daily through Nephrology. Consider increase to 10mg daily. To discuss with Eyal. Encourage tobacco cessation, low salt diet, physical activity as able ED precautions Assessment & Plan (04/06/2024 12:37 PM EDT): Elevated BP reading in office, possibly due to increased recent pain and stress. Encourage tobacco cessation, low salt diet, physical activity as able BP monitor sent to pharmacy. Plan to monitor home readings x 2 weeks, then follow up for review ED precautions Cigarette smoker 04/06/2024 Overview (04/06/2024): -Cigg/day: 10 -Pack year history: < 20 Encouraged smoking cessation resources Testicular cyst 04/06/2024 Assessment & Plan (04/28/2024 6:16 PM EDT): Incidental finding from [facility] Hospitalization February 2024: 3mm tunica cyst overlying the left testicle, small bilateral epididymal cysts, small left varicocele Currently asymptomatic, Follow up precautions Referral to Urology placed 04/28/24 Assessment & Plan (04/06/2024 12:41 PM EDT): Incidental finding from [facility] Hospitalization February 2024: 3mm tunica cyst overlying the left testicle, small bilateral epididymal cysts, small left varicocele Currently asymptomatic Will likely benefit from Urology follow up, although current priorities establishing with specialists re: renal infarct. Follow up precautions, discuss further at follow up visit Severe anxiety 02/27/2024 Healthcare maintenance 11/20/2023 Assessment & Plan (11/20/2023 6:55 PM EDT): Lab work ordered in anticipation of next visit Hepatic steatosis 08/05/2023 Overview (08/05/2023): ?? Noted on CT scan October and Mar 2023 ?? Recommended lifestyle interventions Periportal lymphadenopathy 06/10/2023 Overview (07/30/2023): ?? 11/08/22: CT at [facility] w/ following impression: Periliac/periportal lymph nodes and several retroperitoneal lymph nodes which was not definitely pathologically enlarged. Recommend clinical correlation in 3 months to re-assess (January 2023) ?? Repeat CT 04/05/23 at [facility]: Impression: Hepatic steatosis and hepatomegaly with adjacent prominent periportal and gastrohepatic lymph nodes. Lymph nodes are likely reactive. No follow up necessary. Assessment & Plan (07/30/2023 5:23 PM EST): No need for follow up at this time History of cocaine use 03/16/2023 Assessment & Plan (06/10/2023 10:44 AM EDT): -Currently sober since January 2023, congratulated Assessment & Plan (03/16/2023 2:05 PM EDT): -Currently sober for the past 6 weeks, congratulated Bipolar depression 02/14/2023 Assessment & Plan (08/28/2024 8:52 PM EST): Continues with the following med regimen: Gabapentin 300mg TID Trazodone 50mg nightly PRN Melatonin 9mg nightly PRN Clonidine 0.1mg BID PRN Buspirone 10mg BID Lamotrigine 100mg BID Denies active SI/HI/thoughts of self harm Recently established with new therapist, in the process of establishing with psych prescriber Assessment & Plan (02/29/2024 7:58 AM EDT): PROGRESS NOTE: ID: Eyal is a 39 y.o. Decline to answer straight-identified cis-male with previous documented hx of Bipolar Disorder and Substance Use Disorder self reported history of Anxiety, Bipolar Disorder , and Trauma services including [facility] Psychotherapy psychopharmacology who presents for Bipolar and Anxiety During [facility] Consult Eyal presenting with excessive worry/anxiety, difficulty controlling worry, restless/keyed up/On edge, easily fatigued, difficulty concentrating/Mind going blank , irritability, and muscle tension and Abnormally elevated mood, Flight of ideas, Changes in self-image, and Other: anhedonia, hopelessness, decrease appetite, worthlessness, mood swings, motor retardation and passive SI.; for a period of 18+ mo, for all symptoms in the context of divorce/separation, financial concern, illness or family illness, employment concern, and stress relationship with his daughter's mother. . Eyal presented with increased low mood and anxiousness. He verbalized Hc of trauma, Hx of self harm and multiple SI attempts. Las occurrence was 01/2023. He identify SI attempts were induced by cocaine use. He has maintain sobriety for a year. Eyal identify as major source of stress his court case related to daughter custody. We discussed safety plan and coping mechanisms, he declined both interventions. Eyal was goal directed and just want to engage with a therapist and psychiatrist. PLAN: New/Additional Services needed Off-site services for Behavioral Health Integration Plan External OP therapy referral and OP psychiatry Referral Patient Self Plan Patient to reach out to [facility] team as needed, Patient to engage in OP therapy , and Patient to reach out to [facility] as needed Assessment & Plan (01/01/2024 11:57 AM EDT): Continues with the following med regimen: Gabapentin 300mg TID Trazodone 50mg nightly PRN Melatonin 9mg nightly PRN Clonidine 0.1mg BID PRN Buspirone 10mg BID Lamotrigine 25mg daily Denies active SI/HI/thoughts of self harm Previously established with therapist and med management through [facility]. Interested in switching to other clinic due to difficulties with communication. Referral placed 12/31/23. Assessment & Plan (06/10/2023 10:43 AM EDT): Continues with the following med regimen: ? ? Gabapentin 300mg TID ? ? Trazodone 50mg nightly PRN ? ? Melatonin 9mg nightly PRN ? ? Clonidine 0.1mg BID PRN ? ? Buspirone 10mg BID ? ? Lamotrigine 25mg daily Denies active SI/HI/thoughts of self harm Established with therapist (Lalo) and med management through [facility]. Assessment & Plan (03/19/2023 9:17 AM EDT): Assessment: Patient with history of bipolar disorder (diagnosed by therapist Prakash Oliver), 4 suicide attempts (first attempt at 17, most recent attempt 01/31/23) and history of alcohol and cocaine abuse (most recent cocaine use 01/31/23 occasional alcohol use). Symptoms in the context of biopsychosocial stressors of a history of trauma in childhood, financial insecurity, and drug and alcohol abuse. Patient will benefit from continued OP therapy and medication management with [facility]. At this time Eyal Rashid meets criteria for Visit Diagnoses: Problem List Items Addressed This Visit Other Bipolar depression (CMS/HCC) Patient ready to address current needs Yes Strengths- Eyal has a variety of coping mechanism and is supported by his partner. He is in the action stage of change. PLAN: 1. Follow up with [facility]: Not recommended for follow-up 2. Patient goal is to continue OP therapy and medication management with [facility] 3. Behavioral Recommendations a. Grounding exercises b. Deep breathing c. OP therapy and medication management Assessment & Plan (03/16/2023 2:07 PM EDT): Continues with the following med regimen: ? ? Gabapentin 300mg TID ? ? Trazodone 50mg nightly PRN ? ? Melatonin 9mg nightly PRN ? ? Clonidine 0.1mg BID PRN ? ? Buspirone 10mg BID ? ? Lamotrigine 25mg daily Denies active SI/HI/thoughts of self harm Established with therapist - [facility]. Plan to establish with psychiatrist shortly Assessment & Plan (02/15/2023 3:26 PM EDT): Assessment: Patient with history of bipolar disorder (diagnosed by therapist Prakash Oliver), 4 suicide attempts (first attempt at 17, most recent attempt 01/31/23) and history of alcohol and cocaine abuse (most recent use 01/31/23). Symptoms in the context of biopsychosocial stressors of a history of trauma in childhood, financial insecurity, and drug and alcohol abuse. Patient will benefit from care management, psychopharmacology clinic, CRS, AUD clinic and OP therapy. At this time Eyal Rashid meets criteria for Visit Diagnoses: Problem List Items Addressed This Visit Other Bipolar depression (CMS/HCC) Patient ready to address current needs Yes Strengths include- Eyal is the action stage of change and practices grounding exercises with his partner PLAN: 1. Follow up with [facility]: Recommended for follow-up: with PCP03/16/2023 2. Patient goal is to engage in services to increase coping mechanisms and decrease symptoms 3. Behavioral Recommendations a. Continue grounding exercises b. OP therapy and medication management c. Care Management scheduled 02/19/23 Allergic rhinitis 02/13/2023 Gout 02/13/2023 Assessment & Plan (04/06/2024 12:38 PM EDT): Continue allopurinol 300mg daily Flares: colchicine PRN Last flare: February 2024 while hospitalized at [facility] Encouraged low purine diet Assessment & Plan (11/20/2023 6:54 PM EDT): Continue allopurinol 300mg daily Previous flare subsided, sent in refill of colchicine PRN flares Encouraged low purine diet Sleep apnea 02/13/2023 Overview (06/10/2023): ?? Sleep study completed 04/03/23 at [facility]. Diagnosed with HELEN. Recommendation to start on CPAP 15cm H20 with a heated humidifier and AirTouch F20 full face mask size large. ?? DME request placed 04/18/23 Assessment & Plan (08/28/2023 4:08 PM EST): Continues with CPAP at night, noted improvement with use. Plan to use more consistently in 2023. Internal hemorrhoid 01/16/2023 Assessment & Plan (11/20/2023 6:52 PM EDT): Colonoscopy [facility] October 2022: Large internal hemorrhoids. Normal mucosa was seen in the colon. Referred to colorectal surgery for management of bleeding internal hemorrhoids. Recommended first screening colonoscopy in 10 years at age 47 y/o. Continues with Vit D and iron supplementation Referral through PCP office to colorectal surgery Jul 2023 Reports completed initial eval with Colorectal surgeon and they prescribed topical steroid for internal/external hemorrhoids. No current blood in stool or bleeding per rectum. Due to follow up with specialist for re-eval. Assessment & Plan (08/05/2023 9:16 PM EST): ? ? Colonoscopy [facility] October 2022: Large internal hemorrhoids. Normal mucosa was seen in the colon. ? ? Referred to colorectal surgery for management of bleeding internal hemorrhoids. ? ? Recommended first screening colonoscopy in 10 years at age 47 y/o. ? ? Continues with Vit D and iron supplementation ? ? Referral through PCP office to colorectal surgery Jul 2023 Assessment & Plan (01/16/2023 8:35 AM EDT): ?? Colonoscopy [facility] October 2022: Large internal hemorrhoids. Normal mucosa was seen in the colon. ?? Referred to colorectal surgery for management of bleeding internal hemorrhoids. ?? Recommended first screening colonoscopy in 10 years at age 47 y/o. ?? Continues with Vit D and iron supplementation Degenerative arthritis of lumbar spine Assessment & Plan (04/28/2024 6:18 PM EDT): CT on the ED October 2022 showed degenerative changes of the lower thoracic spine and degenerative disc disease L4-L5 and L5-S1 Continue with physical therapy Continue APAP PRN Aug 2023: established with [facility]. Plan for diagnostic bilateral L3, L4, L5 LMBB's in anticipation of RFA. Reports improvement noted s/p first side, plan to follow up for other side. Continue following with specialist as planned Assessment & Plan (01/01/2024 11:51 AM EDT): CT on the ED October 2022 showed degenerative changes of the lower thoracic spine and degenerative disc disease L4-L5 and L5-S1 Continue with physical therapy Continue APAP PRN Aug 2023: established with [facility]. Plan for diagnostic bilateral L3, L4, L5 LMBB's in anticipation of RFA. Reports improvement noted s/p first side, plan to follow up for other side. Continue following with specialist as planned Assessment & Plan (11/20/2023 6:53 PM EDT): CT on the ED October 2022 showed degenerative changes of the lower thoracic spine and degenerative disc disease L4-L5 and L5-S1 Continue with physical therapy Continue APAP PRN Cont flexeril for muscle spasms PRN Aug 2023: established with [facility]. Plan for diagnostic bilateral L3, L4, L5 LMBB's in anticipation of RFA. Continue following with specialist as planned Assessment & Plan (07/30/2023 5:26 PM EST): ?? CT on the ED October 2022 showed degenerative changes of the lower thoracic spine and degenerative disc disease L4-L5 and L5-S1 ?? Continue with physical therapy ?? Continue APAP PRN ?? Cont flexeril for muscle spasms PRN ?? Referral to [facility] on 07/30/23 Assessment & Plan (06/10/2023 10:47 AM EDT): ?? CT on the ED October 2022 showed degenerative changes of the lower thoracic spine and degenerative disc disease L4-L5 and L5-S1 ?? Referred to [facility] for further eval ?? Continue APAP PRN ?? Cont flexeril for muscle spasms PRN Assessment & Plan (01/16/2023 8:37 AM EDT): ?? CT on the ED October 2022 showed degenerative changes of the lower thoracic spine and degenerative disc disease L4-L5 and L5-S1 ?? Referral to [facility] for further eval ?? Start baclofen for muscle spasms as needed ?? Continue APAP PRN Resolved Problems Problem Noted Date Diagnosed Date Resolved Date Class 2 obesity 02/13/2023 04/28/2024 Chronic gout of multiple sites 09/18/2022 01/01/2024 Overview (09/24/2022): -Continue with allopurinol 300mg daily -Colchicine 0.6mg PRN Assessment & Plan (09/24/2022 9:58 PM EST): -reviewed triggers Encounters * This document contains information received from the source organization and may not represent a complete record from that organization. Date Type Department Care Team Description 09/18/2024 Telephone [facility] [address] [place] [address] Stefanie Gibson FNP TC: Med Refill Request 09/18/2024 Refill [facility] [address], [place] [id number] Stefanie Gibson FNP Renal infarct ([facility]) 09/17/2024 Telephone [facility] [address], [place] [id number] Stefanie Gibson FNP PCP Request X-Ray records 08/22/2024 Refill [facility] [address] [place] [address] Stefanie Gibson FNP Renal infarct ([facility]) 08/11/2024 9:00 AM EST Office Visit [facility] [address] [place] [address] Stefanie Gibson FNP Renal infarct ([facility]) (Primary Dx); Primary hypertension; Obstructive sleep apnea syndrome; Gross hematuria; History of knee surgery; Bipolar depression ([facility]) 08/11/2024 Travel 08/11/2024 Refill [facility] [address] [place] [address] Stefanie Gibson FNP Renal infarct ([facility]) 08/07/2024 Telephone [facility] [address] [place] [address] Elle Marshall MA Chart Prep 08/05/2024 Refill [facility] [address] [place] [address] Stefanie Gibson FNP 07/07/2024 Telephone [facility] [address] [place] [address] Stefanie Gibson FNP Medication Question 06/24/2024 Telephone [facility] [address] [place] [address] Stefanie Gibson FNP June recall from Last 3 Months Immunizations Name Administration Dates Next Due DT (pediatric) 04/13/2006 Hep B, adult 04/25/2024 Influenza injectable quadriv alent preservative free 05/21/2023,08/16/2021 Influenza, IIV3, injectable 08/16/2021,1 ,06/02/2015,2013,10/14/2013,05/31/2011 Pfizer Covid-19 Vaccine 12+ 10/20/2020, Pneumococcal Conjugate PCV 20 11/19/2023 Tdap 11/19/2023,03/18/2013 Family History Medical History Relation Name Comments Diabetes type II Brother Diabetes type II Mother Cancer Mother's Sister Relation Name Status Comments Brother Father Mother Mother's Sister Social History Tobacco Use Types Packs/Day Years [...] Orientation Straight 06/26/2022 10 :18 AM EDT Last Filed Vital Signs Vital Sign Reading Time Taken Comments Blood Pressure 132/78 08/11/2024 8:59 AM EST Pulse 97 08/11/2024 8:59 AM EST Temperature 36.8 ??C (98.3 ??F) 08/11/2024 8:59 AM ES T Respiratory Rate 20 08/11/2024 8:59 AM EST Oxygen Saturation 98% 08/11/2024 8:59 AM EST Inhaled Oxygen Concentration - - Weight 106 kg (234 lb 4 oz) 08/11/2024 8:[address] Height 172.7 cm (5' 8 ) 08/11/2024 8:59 AM EST Body Mass Index 35.62 08/11/2024 8:59 AM EST Plan of Treatment Health Maintenance Due Date Last Done Comments HIV Screening 1985 Family Planning (PISQ) 2001 Hepatitis A Vaccines (1 of 2 - Risk 2-dose series) 2005 Hepatitis B Vaccines (2 of 3 - 19+ 3-dose series) 05/23/2024 04/25/2024 SDOH Screening 12/30/2024 12/31/2023 Influenza Vaccine (#1) 2025 , 08/16/2021, 08/16/2021, Additional history exists Postponed from 04/27/2024 (Patient Refused) Depression Screening 02/26/2025 02/27/2024, 02/27/20 Alcohol/Substance Use Screening 08/11/2025 08/11/2024 COVID-19 Vaccine ( season) 2025 10/20/2020, 09/29/2020 Postponed from 04/27/2024 (Patient Refused) Tobacco Screening 08/11/2025 08/11/2024 Lipid Panel 04/22/2029 04/22/2024, 04/22/2024 DTaP/Tdap/Td Vaccines (3 - Td or Tdap) 11/18/2033 11/19/2023, 03/18/2013 Zoster Vaccines (1 of 2) 01/26/2036 RSV Patients and Patients Aged 60 years or older (1 - 1-dose 75+ series) 2061 Pneumococcal Vaccine: Pediatrics (0 to 5 Years) and At-Risk Patients (6 to 64 Years) Completed 11/19/2023 Hepatitis C Screening Completed 04/22/2024 HIB Vaccines Aged Out No longer eligi ble based on patient's age to complete this topic HPV Vaccines Aged Out No longer eligi ble based on patient's age to complete this topic IPV Vaccines Aged Out No longer eligi ble based on patient's age to complete this topic Meningococcal Vaccine Aged Out No brian arcenio eligible based on patient's age to complete this topic RSV under 20 months Aged Out No longe r eligible based on patient's age to complete this topic Rotavirus Vaccines Aged Out No longer eligible based on patient's age to complete this topic Procedures Procedure Name Priority Date/Time Associated Diagnosis Comments CYTOPATH-CELL ENHANCED Routine 07/29/2024 8:41 AM EST DRUG MONITOR, PANEL 1, SCREEN, URINE Routine 07/15/2024 9:50 AM EST HEPATITIS C AB W/REFL TO HCV RNA, QN, PCR Routine 04/22/2024 3:12 PM EDT Hepatic steatosis LIPID PANEL, STANDARD Routine 04/22/2024 3:12 PM EDT from Last 3 Months or Most Recently Relevant to Health Maintenance Results * Cytopath-cell enhanced (07/29/2024 8:41 AM EST) 07/29/2024 8:41 AM EST 07/29/2024 10:10 AM EST [facility] - 07/31/2024 8:31 AM EST ----- ------- Name: Eyal Rashid ?Age/Sex: 39/M ? : 1985 Unit#: [id number] ?? Attend Dr: Rowena Green MD ?Re07/28/24 ?Status: DEP REF ? Location: [facility].LAB ?Disch: ? ----- ------- SPEC : [id number] ?RECD: 07/29/240 ? STATUS: ??SOUT ? REQ NUM: [id number] ? ZOLTAN: 07/29/24 ? SUBM DR: Rowena Green MD ? ENTERED: ??07/29/24 ?SP TYPE: Cytology ? OTHR DR: Stefanie Gibson ? ORDERED: ??Cyto-enhanced ? Diagnosis ?? Urine: ??Atypical urothelial cells. ??See comment. ? COMMENT: Cellular specimen consisting of a few groups of urothelial cells, which are ?? small to medium in size; one group has increased nuclear-cytoplasmic ratio, irregular ?? nuclear contours and coarse chromatin. ??The background has single urothelial cells with ?? degenerative changes, red blood cells, squamous cells and mixed inflammatory cells. ?Clinical History Gross hematuria ? Material Received ?? Urine ? Gross Description Received is 72 cc of clear yellow fluid from which a ThinPrep slide is prepared. Copies To: ?? Rowena Green MD ?? [facility] ?? [address] ?? [place] [address] ?? [phone] ?? [email or web address] ?? Stefanie Gibson NUCLEAR PLANT TECHNICAL ADVISOR ?? [address] [facility] ?? [place] [address] ?? [phone] ----- ------- Signed (signature on file) Moi Sun MD 07/31/2431 ? ----- ------- ? END OF REPORT ? us Generic External Data Provider LAB CYTOLOGY PATRICIA MEJIA Final Result [facility] [address] [place] [address] [phone] * (ABNORMAL) Drug Monitoring, Panel 1, Screen, Urine (07/15/2024 9:50 AM EST) Opiate Screen Urine Not Detected Not Detect [facility] Comment:Opiate cut-off is 30 0 ng/mL.Positive results are unconfirmed and should not be used fornon-medical purposes. Barbiturates, Urine Not Detected Not Detect [facility] Comment:Barbiturate cut-off is 200 ng/mL.Positive results are unconfirmed and should not be used fornon-medical purposes. Phencyclidine Screen Urine Not Detected Not Detect [facility] Comment:Phencyclidine cut-of f is 25 ng/mL.Positive results are unconfirmed and should not be used fornon-medical purposes. Amphetamine Screen Urine Not Detected Not Detect [facility] Comment:Amphetamine cut-off is 1000 ng/mL.Positive results are unconfirmed and should not be used fornon-medical purposes. Benzodiazepines Screen Urine Not Detected Not Detect [facility] Comment:Benzodiazepine cut-o ff is 200 ng/mL.Positive results are unconfirmed and should not be used fornon-medical purposes. Cocaine Screen Urine Not Detected Not Detect [facility] Comment:Cocaine cut-off is 3 00 ng/mL.Positive results are unconfirmed and should not be used fornon-medical purposes. Cannabinoid Screen Urine POSITIVE(A) Not Detect [facility] Comment:Cannabinoid cut-off is 50 ng/mL.Positive results are unconfirmed and should not be used fornon-medical purposes. Methadone Screen, Urine Not Detected Not Detect ng/mL [facility] Comment:Methadone cut-off is 300 ng/mL.Positive results are unconfirmed and should not be used fornon-medical purposes. FENTANYL URINE Not Detected Not Detect [facility] Comment:Fentanyl cut-off is 1 ng/mL.Positive results are unconfirmed and should not be used fornon-medical purposes. Oxycodone Urine Screen Not Detected Not Detect ng/mL [facility] Comment:Oxycodone cut-off is 100 ng/mL.Positive results are unconfirmed and should not be used fornon-medical purposes. Buprenorphine Screen Not Detected Not Detect ng/mL [facility] Comment:Buprenorphine cut-of f is 5 ng/mL.Positive results are unconfirmed and should not be used fornon-medical purposes. 07/15/2024 9:50 AM EST 07/15/2024 9:52 AM EST us Generic External Data Provider LAB URINE ORDERAB LES Final Result Performing Organization Address [facility]/ZIP Co de Phone Number [facility] [address] [place] [phone] * Hepatitis C Antibody with Reflex to HCV, RNA, Quantitative, Real-Time PCR (04/22/2024 3:12 PM EDT) Hepatitis C Antibody Nonreactive Nonreactive [facility] Comment:Antibodies to HCV no t detected; does not exclude early acuteHCV infection. Blood Venous blood specimen / Unknown 04/22/2024 3:12 PM EDT 04/22/2024 3:12 PM EDT us Stefanie Gibson NUCLEAR PLANT TECHNICAL ADVISOR LAB BLOOD ORDERABLES Final Res ult Performing Organization Address [facility] Co de Phone Number [facility] [address] [place] [phone] * (ABNORMAL) Lipid Panel, Standard (04/22/2024 3:12 PM EDT) Triglycerides 140 <150 mg/dL [facility] Comment:Desirable Triglyceri de: less than 150 mg/dLBorderline High Triglyceride 150-199 mg/dLHigh Triglyceride: 200-499 mg/dLVery High Triglyceride: greater than or equal to 5OO mg/dL Cholesterol 179 <200 mg/dL [facility] Comment:Desirable Cholestero l: less than 200 mg/dLBorderline High Cholesterol: 200-239 mg/dLHigh Cholesterol: greater than 239 mg/dL LDL Cholesterol Calculated 111(H) <100 mg/dL [facility] Comment:Desirable LDL: less than 100 mg/dLNear Optimal/Above Optimal LDL: 110- 129 mg/dLBorderline High LDL: 130-159 mg/dLHigh LDL: 160-189 mg/dLVery High LDL: greater than or equal to 190 mg/dL HDL Cholesterol 40(L) >40 mg/dL [facility] Comment:Desirable HDL: great er than 40 mg/dL Note: This HDL assay may give artificially low results in patients with liver disease. 04/22/2024 3:12 PM EDT 04/22/2024 3:12 PM EDT us Generic External Data Provider LAB BLOOD ORDERAB LES Final Result [facility] [address] [place] [address] [phone] from Last 3 Months or Most Recently Relevant to Health Maintenance Insurance [employer] C3 Care Teams Slip Dumper Relationship Specialty Start Date End Date Stefanie Gibson FNP [address] [place] [phone] PCP - General Family Medicine 04/26/22 Jonathan Wall MD [address] [place] [address] Nephrology 08/11/24 Rowena Kennedy MD [address] [place] [address] Urology 08/11/24 Taty Coates MD [address] [place] [address] Hematology and Oncology 08/11/24 anthony stewart Supplier SpecialistParalegal Internship 12/06/23
--- OUTSIDE RECORDS SUMMARY | 2024-09-19 16:44 | XMS_ITS | Encounter Summary ---
Author Organization [id number] Address [address] [facility] 7t [place] [address] Care Team Providers Care Legal Executive Name Role Phone Stefanie Gibson PRISON KEEPER Primary Care Provider [phone] Jonathan Wall MD Unavailable Rowena Kennedy MD Unavailable Taty Coates MD Unavailable [phone] Reason for Visit * Reason Comments Med Refill Encounter Details Date Type Department Care Team ([facility] st Contact Info) Description 08/22/2024 Refill [facility] CH[facility] MED & PEDS [address] [place], [place] [phone] Stefanie Gibson FNP [address] [place], [place] [phone] Renal infarct ([facility]/HCC) Social History Tobacco Use Types Packs/Day Years [...] documented as of this encounter Care Teams Legal Executive Relationship Specialty Start Date End Date Stefanie Gibson FNP [address] [place] [address] PCP - General Family Medicine 04/26/22 Jonathan Wall MD [address] [place] [address] Nephrology 08/11/24 Rowena Kennedy MD [address] [place] [address] Urology 08/11/24 Taty Coates MD [address] [place] [address] Hematology and Oncology 08/11/24 anthony stewart Professional FighterMeter And Regulator Shop Supervisor 12/06/23 documented as of this encounter
--- OUTSIDE RECORDS SUMMARY | 2024-09-19 16:44 | XMS_ITS | Clinical Summary ---
Author Organization [address] [place] [address] [place] [phone] Phone Care Team Providers Care Instrument Worker Name Role Phone Unavailable Primary Care Provider Unavailabl e Allergies No known active allergies Medications Medication Sig Dispensed Refills Start Date End Date Status lamoTRIgine (LaMICtal) 100 mg tablet Take 1 tablet (100 mg total) by mouth 2 (two) times a day. Active allopurinoL (ZYLOPRIM) 300 mg tablet Take 1 tablet (300 mg total) by mouth 1 (one) time each day. Active amLODIPine (NORVASC) 10 mg tablet Take 1 tablet (10 mg total) by mouth 1 (one) time each day. Active busPIRone (BUSPAR) 10 mg tablet Take 1 tablet (10 mg total) by mouth 2 (two) times a day. Active cloNIDine (CATAPRES) 0.1 mg tablet Take 1 tablet (0.1 mg total) by mouth 2 (two) times a day. Active rivaroxaban (XARELTO) 10 mg tablet Take 1 tablet (10 mg total) by mouth 1 (one) time each day with breakfast. Take with food. Active gabapentin (NEURONTIN) 300 mg capsule Take 1 capsule (300 mg total) by mouth 3 (three) times a day if needed (pain). Active cyclobenzaprine (FLEXERIL) 10 mg tablet Take 1 tablet (10 mg total) by mouth 3 (three) times a day if needed for muscle spasms. Active colchicine (MITIGARE) 0.6 mg capsule capsule 1 capsule (0.6 mg total) 1 (one) time each day. Active Active Problems Problem Noted Date Diagnosed Date Renal infarction 07/15/2024 Assessment & Plan (07/16/2024 1:09 PM EST): Continues to follow with nephrology Obesity 06/18/2024 Sinus tachycardia 06/18/2024 Assessment & Plan (07/16/2024 1:09 PM EST): 30-day monitor resulted as outlined above. No significant atrial or ventricular arrhythmias. Patient denies perception of palpitations. DVT (deep venous thrombosis) 06/18/2024 Assessment & Plan (07/16/2024 1:08 PM EST): Continues on Xarelto. Hypokalemia 06/18/2024 Encounters Date Type Department Care Team Description 07/16/2024 12:40 PM EST Office Visit [facility] [address] [facility] [address] [place] [address] Rasheeda Lee NP Sinus tachycardia (Primary Dx); Renal infarction (CMS/HCC) from Last 3 Months Surgical History Surgery Date Site/Laterality Comments GASTRIC BAND ADJUSTMENT Medical History Medical History Date Comments Deep vein thrombosis (CMS/HCC) Hypokalemia Sinus tachycardia Social History Tobacco Use Types Packs/Day Years Used Date Smoking Tobacco: Every Day Cigarettes Tobacco Cessation:Ready to Q uit: Not Asked; Counseling Given: Not Answered Alcohol Use Standard Drinks/Week Comments Yes 0 (1 standard drink = 0.6 oz pur e alcohol) Sex and Gender Information Value Date Recorded Sex Assigned at Not on file Gender Identity Not on file Sexual Orientation Not on file Job Start Date Occupation Industry Not on file Not on file Not on file Obstetrics History Last Filed Vital Signs Vital Sign Reading Time Taken Comments Blood Pressure 120/80 07/16/2024 12:47 PM EST Pulse 97 07/16/2024 12:47 PM EST Temperature - - Respiratory Rate - - Oxygen Saturation 97% 07/16/2024 12:47 PM EST Inhaled Oxygen Concentration - - Weight 102 kg (225 lb) 07/16/2024 12:47 PM EST Height 172.7 cm (5' 8 ) 07/16/2024 12:47 PM EST Body Mass Index 34.21 07/16/2024 12:47 PM EST Plan of Treatment Health Maintenance Due Date Last Done Comments Hepatitis A Vaccines (1 of 2 - Risk 2-dose series) 2005 HIV Screening 07/25/2022 Social Influencers of Health Screening 07/25/2022 COVID-19 Vaccine (3 - 2023- season) 2024 10/20/2020, 09/29/2020 Influenza Vaccine (#1) 2024 , 08/16/2021, 06/10/2015, Additional history exists Hepatitis B Vaccines (2 of 3 - 19+ 3-dose series) 05/23/2024 04/25/2024 Depression Screening 02/26/2025 02/27/2024 Hypertension/CHF/CAD Annual BMP Blood Test 04/22/2025 04/22/2024 Cholesterol Screening (Lipid Panel) 04/22/2029 04/22/2024 DTaP,Tdap,and Td Vaccines (4 - Td or Tdap) 11/18/2033 11/19/2023, 03/18/2013, 04/13/2006 Pneumococcal Vaccine: Pediatrics (0 to 5 Years) [...] on patient's age to complete this topic MMR Vaccines Aged Out No longer eligi ble based on patient's age to complete this topic Meningococcal ACWY Vaccine Aged Out N o longer eligible based on patient's age to complete this topic RSV Immunization Patients Under 20 months Aged Out No longer eligible based on patient's age to complete this topic Varicella Vaccines Aged Out No longer eligible based on patient's age to complete this topic
--- OUTSIDE RECORDS SUMMARY | 2024-09-19 16:44 | XMS_ITS | Encounter Summary ---
Author Organization [employer] Address [address] 7[address] [place] [address] Care Team Providers Care Heel Coverer Name Role Phone Stefanie Gibson Primary Care Provider [phone] Jonathan Wall MD Unavailable Rowena Kennedy MD Unavailable Taty Coates MD Unavailable [phone] Reason for Visit * Reason Onset Date Comments Hospital Follow-up 03/17/2024 Encounter Details Date Type Department Care Team (Late st Contact Info) Description 03/17/2024 Telephone [facility] MEDICINE [address] [place] [address] Stefanie Gibson FNP [address] [place], [place] [phone] Hospital Follow-up Social History Tobacco Use Types Packs/Day Years Used Date Smoking Tobacco: Every Day Cigarettes Smokeless Tobacco: Never Comments:Boxes Alcohol Use Standard [...] encounter Miscellaneous Notes * Telephone Encounter - Siobhan gNuyen - 03/17/2024 2:50 PM EDT Tc from pt requesting a HDF appt. Hospital: [facility] Date of admission: 03/15 Discharge date: 03/17 Diagnosed: Kidney disease documented in this encounter Plan of Treatment Not on file documented as of this encounter Visit Diagnoses Not on filedocumented in this encounter Additional Health Concerns Assessment Noted Time PHQ-9 Depression Total Score: 8 02/27/20 24 3:30 PM EDT documented as of this encounter Care Teams Heel Coverer Relationship Specialty Start Date End Date Stefanie Gibson FNP [address] [place] [address] PCP - General Family Medicine 04/26/22 Jonathan Wall MD [address] [place] [address] Nephrology 08/11/24 Rowena Kennedy MD [address] [place] [address] Urology 08/11/24 Taty Coates MD [address] [place] [address] Hematology and Oncology 08/11/24 anthony stewart Log ChipperRadio Engineering Teacher 12/06/23 documented as of this encounter
== END 2024-09-19 16:22 | disposition home or self-care (01) ==
LOC: HO.LNP 16:21
PROVIDERS: Visit Provider Urology
DX: R31.0 Gross hematuria (principal); N28.0 Ischemia and infarction of kidney
CPT/HCPCS: 88121

== ENCOUNTER 2024-09-26 07:44 | Outpatient (REF) | payer MEDICAID, SELFPAY ==
--- NOTE | ~2024-09-26 | CT_ITS ---
EXAMINATION: CT ABDOMEN PELVIS ANGIOGRAPHY WITH IV CONTRAST HISTORY: N28.0 - Ischemia and infarction of kidney COMPARISON: None. TECHNIQUE: CT scan of the abdomen and pelvis was performed after the intravenous administration of 80 mL Omnipaque 350. Scanning was timed to optimally enhanced the arterial system. Coronal and sagittal reformatted images were generated and reviewed. Oral contrast material was not administered per department protocol. This CT exam was performed with one or more of the following dose reduction techniques: automated exposure control, adjustment of the mA and/or kV according to patient size, use of iterative reconstruction technique. DLP: 306 mGy-cm ABDOMEN: LOWER CHEST: The visualized lung bases are clear. There is no pleural effusion. CARDIOVASCULATURE: The heart is normal in size. There is no pericardial effusion. LIVER: The liver is normal in size and contour. No liver mass is identified. The hepatic and portal veins are patent. GALLBLADDER / BILE DUCTS: The gallbladder is unremarkable. There is no intra or extrahepatic biliary ductal dilatation. SPLEEN: The spleen is normal in size. No focal splenic lesion is identified. PANCREAS: The pancreas is unremarkable in appearance. ADRENAL GLANDS: There is a 1.7 cm right adrenal nodule. The left adrenal gland is unremarkable.. KIDNEYS/RETROPERITONEUM: There is scarring at the anterior aspect of the upper pole of the left kidney, consistent with the clinical history of infarction. No renal calculi are identified. There is no hydronephrosis. No renal masses are identified. LYMPH NODES: No abdominal or pelvic lymphadenopathy. VASCULATURE: The abdominal aorta is normal in caliber and is widely patent. The celiac axis, superior mesenteric artery, and inferior mesenteric arteries are patent. The bilateral common and external iliac arteries are widely patent. There are 2 renal arteries bilaterally. The right renal arteries are widely patent. On the left, there is a probable moderate to severe focal stenosis of the origin of the more superior renal artery. The left inferior renal artery appears widely patent. MESENTERY/PERITONEUM: No free fluid. No masses. There is no free intraperitoneal gas. STOMACH: The patient is status post laparoscopic gastric band procedure. SMALL BOWEL: The small bowel is normal in caliber. COLON: The colon is unremarkable. APPENDIX: Normal. URINARY BLADDER/PELVIC ORGANS: There is a 4 mm calculus in the urinary bladder adjacent to the left UVJ. The prostate is normal in size. BONES / SOFT TISSUES: No suspicious bony or soft tissue abnormalities. CT/CT angio abdomen pelvis IMPRESSION: 1. Scarring at the anterior aspect of the upper pole of the left kidney, consistent with the clinical history of infarct. 2. Two renal arteries are noted bilaterally. There is a probable moderate to severe focal stenosis of the origin of the more superior left renal artery. 3. 4 mm calculus in the urinary bladder adjacent to the left UVJ. Electronically signed by: Jonathan Tran MD 09/26/2024 09:02 AM [facility]
--- OUTSIDE RECORDS SUMMARY | 2024-09-26 07:46 | XMS_ITS | Encounter Summary ---
Author Organization [employer] Address [address] [facility] 7t [place] [address] Care Team Providers Care Biostatistics Professor Name Role Phone Stefanie Gibson MARBLE INSTALLER SUPERVISOR Primary Care Provider [phone] Jonathan Wall MD Unavailable Rowena Kennedy MD Unavailable Taty Coates MD Unavailable [phone] Reason for Visit * Reason Onset Date Comments PCP Request X-Ray records 09/17/2024 Encounter Details Date Type Department Care Team ([facility] Contact Info) Description 09/17/[address] [facility] MED & PEDS [address] [place], [place] [phone] Stefanie Gibson FNP [address] [place], [place] [phone] PCP Request X-Ray records Social History Tobacco [...] documented as of this encounter Care Teams Biostatistics Professor Relationship Specialty Start Date End Date Stefanie Gibson FNP [address] [place] [address] PCP - General Family Medicine 04/26/22 Jonathan Wall MD [address] [place] [address] Nephrology 08/11/24 Rowena Kennedy MD [address] [place] [address] Urology 08/11/24 Taty Coates MD [address] [place] [address] Hematology and Oncology 08/11/24 anthony stewart Certified Surgical Tech/First AssistantDisaster Director 12/06/23 documented as of this encounter
--- OUTSIDE RECORDS SUMMARY | 2024-09-26 07:46 | XMS_ITS | Encounter Summary ---
Author Organization [employer] Address [address] [facility] 7t [place] [address] Care Team Providers Care Kerrick Kleaner Operator Name Role Phone Stefanie Gibson C++ PROFESSOR Primary Care Provider [phone] Jonathan Wall MD Unavailable Rowena Kennedy MD Unavailable Taty Coates MD Unavailable [phone] Reason for Visit * Reason Comments Med Refill Encounter Details Date Type Department Care Team ([facility] st Contact Info) Description 08/22/2024 Refill [facility] CH[facility] MED & PEDS [address] [employer], [place] [phone] Stefanie Gibson FNP [address] [place], [place] [phone] Renal infarct ([facility]/HCC) Social History Tobacco Use Types Packs/Day [...] documented as of this encounter Care Teams Kerrick Kleaner Operator Relationship Specialty Start Date End Date Stefanie Gibson FNP [address] [place] [address] PCP - General Family Medicine 04/26/22 Jonathan Wall MD [address] [place] [address] Nephrology 08/11/24 Rowena Kennedy MD [address] [place] [address] Urology 08/11/24 Taty Coates MD [address] [place] [address] Hematology and Oncology 08/11/24 anthony stewart Lathe Set Up PersonCrm Manager 12/06/23 documented as of this encounter
--- OUTSIDE RECORDS SUMMARY | 2024-09-26 07:46 | XMS_ITS | Encounter Summary ---
Author Organization [employer] Address [address] [facility] 7t [place] [address] Care Team Providers Care Wet Suit Gluer Name Role Phone Stefanie Gibson BUTTERMAKER Primary Care Provider [phone] Jonathan Wall MD Unavailable Rowena Kennedy MD Unavailable Taty Coates MD Unavailable [phone] Reason for Visit * Reason Comments Med Refill Encounter Details Date Type Department Care Team ([facility] st Contact Info) Description 08/11/2024 Refill [facility] CH[facility] MED & PEDS [address] [place], [place] [phone] Stefanie Gibson FNP [address] [place], [place] [phone] Renal infarct ([facility]/HCC) Social History Tobacco Use Types [...] documented as of this encounter Care Teams Wet Suit Gluer Relationship Specialty Start Date End Date Stefanie Gibson FNP [address] [place] [address] PCP - General Family Medicine 04/26/22 Jonathan Wall MD [address] [place] [address] Nephrology 08/11/24 Rowena Kennedy MD [address] [place] [address] Urology 08/11/24 Taty Coates MD [address] [place] [address] Hematology and Oncology 08/11/24 anthony stewart Rotary Pump OperatorCertified Court/Medical Interpreter 12/06/23 documented as of this encounter
--- OUTSIDE RECORDS SUMMARY | 2024-09-26 07:46 | XMS_ITS | Encounter Summary ---
Author Organization [employer] Address [address] [facility] 7t [place] [address] Care Team Providers Care Astronautical Engineer Name Role Phone Stefanie Gibson Primary Care Provider [phone] Jonathan Wall MD Unavailable Rowena Kennedy MD Unavailable Taty Coates MD Unavailable [phone] Reason for Visit * Reason Onset Date Comments Med Refill 09/18/2024 Encounter Details Date Type Department Care Team ([facility] st Contact Info) Description 09/18/2024 Refill [facility] CHC MED & PEDS [address] [place], [place] [phone] Stefanie Gibson FNP [address] [place], [place] [phone] Renal infarct (CMS/HCC) Social History Tobacco Use [...] on 03/17/24. His anticoagulation is managed by [facility] Heme/Onc. Per consult note Mar 2024, plan [...] documented as of this encounter Care Teams Astronautical Engineer Relationship Specialty Start Date End Date Stefanie Gibson FNP [address] [place] [address] PCP - General Family Medicine 04/26/22 Jonathan Wall MD [address] [place] [address] Nephrology 08/11/24 Rowean Kennedy MD [address] [place] [address] Urology 08/11/24 Taty Coates MD [address] [place] [address] Hematology and Oncology 08/11/24 anthony stewart Ethyl BlenderPython Developer 12/06/23 documented as of this encounter
--- OUTSIDE RECORDS SUMMARY | 2024-09-26 07:47 | XMS_ITS | Clinical Summary ---
Author Organization [facility] Address [address] [facility] [address] [place] [address] Care Team Providers Care Crimping Press Operator Name Role Phone Stefanie Gibson SANDRA Primary Care Provider [phone] Jonathan Wall MD Unavailable Rowena Kennedy MD Unavailable Taty Coates MD Unavailable [phone] Allergies Active Allergy Reactions Criticality Noted [...] Gross hematuria 08/28/2024 Overview (08/28/2024): [place] [facility] [place] Dr. Rowena Green. Cystoscopy completed Jun 2024. No suspicious bladder lesions identified Urine cytology: Jul 2024 - atypical urothelial cells. Irregular nuclear contours and coarse chromatin. 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 Large accessory left renal artery which is intact Following with [facility] - Dr. Jonathan Wall. Referred to vascular as may need repeat imaging studies and consideration of renal artery stenting. Avoid NSAID. Cont good hydration and BP control. Candidate for ARB in future. Following [place] [facility]Onc Dr. Coates. Last consult 04/22/24. suspect [...] renal artery which is intact Following with [facility] - Dr. Jonathan Wall. Last consult 04/14/24. Referred to vascular as may need repeat imaging studies and consideration of renal artery stenting. Avoid NSAID. Cont good hydration and BP control Following with [facility]Onc Dr. Coates. Last consult 04/22/24. suspect [...] (04/28/2024 6:16 PM EDT): Incidental finding from [facility] Hospitalization February 2024: 3mm tunica cyst overlying the left testicle, small bilateral epididymal cysts, small left varicocele Currently asymptomatic, Follow up precautions Referral to Urology placed 04/28/24 Assessment & Plan (04/06/2024 12:41 PM EDT): Incidental finding from [facility] Hospitalization February 2024: 3mm tunica cyst [...] 06/10/2023 Overview (07/30/2023): ?? 11/08/22: CT at [facility] w/ following impression: Periliac/periportal lymph nodes and several retroperitoneal lymph nodes which was not definitely pathologically enlarged. Recommend clinical correlation in 3 months to re-assess (January 2023) ?? Repeat CT 04/05/23 at [facility]: Impression: Hepatic steatosis and hepatomegaly with [...] Bipolar Disorder , and Trauma services including [facility] Psychotherapy psychopharmacology who presents for Bipolar and [...] Self Plan Patient to reach out to [facility] team as needed, Patient to engage in [...] established with therapist and med management through [facility]. Interested in switching to other clinic due [...] with therapist (Lalo) and med management through [facility]. Assessment & Plan (03/19/2023 9:17 AM EDT): [...] continued OP therapy and medication management with [facility]. At this time Eyal Rashid meets criteria for Visit Diagnoses: Problem List Items Addressed This Visit Other Bipolar depression (CMS/HCC) Patient ready to address current needs Yes Strengths- Eyal has a variety of coping mechanism and is supported by his partner. He is in the action stage of change. PLAN: 1. Follow up with [facility]: Not recommended for follow-up 2. Patient goal is to continue OP therapy and medication management with [facility] 3. Behavioral Recommendations a. Grounding exercises b. [...] of self harm Established with therapist - [facility]. Plan to establish with psychiatrist shortly Assessment [...] his partner PLAN: 1. Follow up with [facility]: Recommended for follow-up: with PCP03/16/2023 2. Patient [...] Last flare: February 2024 while hospitalized at [facility] Encouraged low purine diet Assessment & Plan (11/20/2023 6:54 PM EDT): Continue allopurinol 300mg daily Previous flare subsided, sent in refill of colchicine PRN flares Encouraged low purine diet Sleep apnea 02/13/2023 Overview (06/10/2023): ?? [place]03[place]23 [place] [facility] Diagnosed with HEL[facility]. Recommendation [...] & Plan (11/20/2023 6:52 PM EDT): Colonoscopy [facility] [place] 2022: Large internal [...] (08/05/2023 9:16 PM EST): ? ? Colonoscopy [facility] [place] 2022: Large internal [...] Continue APAP PRN Aug 2023: established with [facility]. Plan for diagnostic bilateral L3, [...] for muscle spasms PRN ?? Referral to [facility] on 07/30/23 Assessment & Plan (06/10/2023 10:47 AM EDT): ?? CT on the ED October 2022 showed degenerative changes of the lower thoracic spine and degenerative disc disease L4-L5 and L5-S1 ?? Referred to [facility] for further eval ?? Continue APAP PRN ?? Cont flexeril for muscle spasms PRN Assessment & Plan (01/16/2023 8:37 AM EDT): ?? CT on the ED October 2022 showed degenerative changes of the lower thoracic spine and degenerative disc disease L4-L5 and L5-S1 ?? Referral to [facility] for further eval ?? Start baclofen for muscle spasms as needed ?? Continue APAP PRN Resolved Problems Problem Noted Date Diagnosed Date Resolved Date Class 2 obesity 02/13/2023 04/28/2024 Chronic gout of multiple sites 09/18/2022 01/01/2024 Overview (09/24/2022): -Continue with allopurinol 300mg daily -Colchicine 0.6mg PRN Assessment & Plan (09/24/2022 9:58 PM EST): -reviewed triggers Encounters Date Type Department Care Team Description 09/18/2024 Telephone [facility] [address] [place] [address] Stefanie Gibson FNP TC: Med Refill Request 09/18/2024 Refill [facility] [address] [place] [address] Stefanie Gibson FNP Renal infarct ([facility]) 09/17/2024 Telephone [facility] [address] [place] [address] Stefanie Gibson FNP PCP Request X-Ray records 08/22/2024 Refill [facility] [address] [place] [address] Arthur Stefanie, MONITORING ANALYST Renal infarct ([facility]/HCC) 08/11/2024 9:00 AM EST Office Visit [facility] [address] [place] [address] Arthur Stefanie, MONITORING ANALYST Renal infarct ([facility]) (Primary Dx); Primary hypertension; Obstructive sleep apnea syndrome; Gross hematuria; History of knee surgery; Bipolar depression ([facility]/HCC) 08/11/2024 Travel 08/11/2024 Refill [facility] [address] [place] [address] Arthur Stefanie, MONITORING ANALYST Renal infarct ([facility]) 08/07/2024 Telephone [facility] [address] [place] [address] Elle Marshall MA Chart Prep 08/05/2024 Refill [facility] [address], [place] [phone] Stefanie Gibson FNP 07/07/2024 Telephone [facility] [address] [place] [address] Stefanie Gibson MONITORING ANALYST Medication Question from Last 3 Months Immunizations Name Administration [...] Alcohol/Substance Use Screening 08/11/2025 08/11/2024 COVID-19 Vaccine (3 - season) 2025 10/20/2020, 09/29/2020 Postponed from 04/27/2024 (Patient Refused) Tobacco Screening 08/11/2025 08/11/2024 Lipid Panel 04/22/2029 04/22/2024, 04/22/2024 DTaP/Tdap/Td Vaccines (3 - Td or Tdap) 11/18/2033 11/19/2023, 03/18/2013 Zoster Vaccines (1 of 2) 01/26/2036 RSV Patients and Patients Aged 60 years or older (1 - 1-dose 75+ series) 2061 Pneumococcal Vaccine: Pediatrics (0 to 5 Years) and At-Risk Patients (6 to 49) Years) Completed 11/19/2023 Hepatitis C Screening Completed [...] 8:41 AM EST 07/29/2024 10:10 AM EST [facility] - 07/31/2024 8:31 AM EST ----- ------- Name: Eyal Rashid ?Age/Sex: 39/M ? : 1985 Unit#: [id number] ?? Attend Dr: Rowena Green MD ?Re07/28/24 ?Status: DEP REF ? [facility] ?Disch: ? ----- ------- SPEC : [id number] ?RECD: 07/29/240 ? STATUS: ??SOUT ? REQ NUM: [id number] ? ZOLTAN: 07/29/24 ? SUBM DR: Rowena Green MD ? ENTERED: ??07/29/24 ?SP TYPE: Cytology ? OTHR DR: Stefanie Gibson MONITORING ANALYST ? ORDERED: ??Cyto-enhanced ? Diagnosis ?? Urine: [...] Copies To: ?? Rowena Green MD ?? [facility] ?? [address] [facility] [address] ?? [place] [address] ?? [phone] ?? [email or web address] ?? Stefanie Gibson ?? [address] [facility] ?? [place] [address] ?? [phone] ----- ------- Signed (signature on file) Moi Sun MD 07/31/24830 ? ----- ------- ? END OF REPORT ? Generic External Data Provider LAB CYTOLOGY PATRICIA MEJIA Final Result [facility] [address] [place] [address] [place] [phone] * (ABNORMAL) Drug Monitoring, Panel 1, Screen, Urine (07/15/2024 9:50 AM EST) Pathologist [facility] Opiate Screen Urine Not Detected Not Detect [facility] Comment:Opiate cut-off is 30 0 ng/mL.Positive results are unconfirmed and should not be used fornon-medical purposes. Barbiturates, Urine Not Detected Not Detect [facility] Comment:Barbiturate cut-off is 200 ng/mL.Positive results are unconfirmed and should not be used fornon-medical purposes. Phencyclidine Screen Urine Not Detected Not Detect [facility] Comment:Phencyclidine cut-of f is 25 ng/mL.Positive results are unconfirmed and should not be used fornon-medical purposes. Amphetamine Screen Urine Not Detected Not Detect [facility] Comment:Amphetamine cut-off is 1000 ng/mL.Positive results are unconfirmed and should not be used fornon-medical purposes. Benzodiazepines Screen Urine Not Detected Not Detect [facility] Comment:Benzodiazepine cut-o ff is 200 ng/mL.Positive results are unconfirmed and should not be used fornon-medical purposes. Cocaine Screen Urine Not Detected Not Detect [facility] Comment:Cocaine cut-off is 3 00 ng/mL.Positive results are unconfirmed and should not be used fornon-medical purposes. Cannabinoid Screen Urine POSITIVE(A) Not Detect [facility] Comment:Cannabinoid cut-off is 50 ng/mL.Positive results are unconfirmed and should not be used fornon-medical purposes. Methadone Screen, Urine Not Detected Not Detect ng/mL [facility] Comment:Methadone cut-off is 300 ng/mL.Positive results are unconfirmed and should not be used fornon-medical purposes. FENTANYL URINE Not Detected Not Detect [facility] Comment:Fentanyl cut-off is 1 ng/mL.Positive results are unconfirmed and should not be used fornon-medical purposes. Oxycodone Urine Screen Not Detected Not Detect ng/mL [facility] Comment:Oxycodone cut-off is 100 ng/mL.Positive results are unconfirmed and should not be used fornon-medical purposes. Buprenorphine Screen Not Detected Not Detect ng/mL [facility] Comment:Buprenorphine cut-of f is 5 ng/mL.Positive results are unconfirmed and should not be used fornon-medical purposes. 07/15/2024 9:50 AM EST 07/15/2024 9:52 AM EST us Generic External Data Provider LAB URINE ORDERAB LES Final Result [facility] [address] [place] [phone] * Hepatitis C Antibody with Reflex to HCV, RNA, Quantitative, Real-Time PCR (04/22/2024 3:12 PM EDT) Hepatitis C Antibody Nonreactive Nonreactive [facility] Comment:Antibodies to HCV no t detected; does not exclude early acuteHCV infection. Blood Venous blood specimen / Unknown 04/22/2024 3:12 PM EDT 04/22/2024 3:12 PM EDT Stefanie Gibson MONITORING ANALYST LAB BLOOD ORDERABLES Final Res ult [facility] [address] [place] [phone] * (ABNORMAL) Lipid Panel, Standard (04/22/2024 3:12 PM EDT) Triglycerides 140 <150 mg/dL [facility] Comment:Desirable Triglyceri de: less than 150 mg/dLBorderline High Triglyceride 150-199 mg/dLHigh Triglyceride: 200-499 mg/dLVery High Triglyceride: greater than or equal to 5OO mg/dL Cholesterol 179 <200 mg/dL [facility] Comment:Desirable Cholestero l: less than 200 mg/dLBorderline High Cholesterol: 200-239 mg/dLHigh Cholesterol: greater than 239 mg/dL LDL Cholesterol Calculated 111(H) <100 mg/dL [facility] Comment:Desirable LDL: less than 100 mg/dLNear Optimal/Above Optimal LDL: 110- 129 mg/dLBorderline High LDL: 130-159 mg/dLHigh LDL: 160-189 mg/dLVery High LDL: greater than or equal to 190 mg/dL HDL Cholesterol 40(L) >40 mg/dL [facility] Comment:Desirable HDL: great er than 40 mg/dL Note: This HDL assay may give artificially low results in patients with liver disease. 04/22/2024 3:12 PM EDT 04/22/2024 3:12 PM EDT us Generic External Data Provider LAB BLOOD ORDERAB LES Final Result [facility] [address] [place] [phone] [phone] from Last 3 Months or Most Recently Relevant to Health Maintenance [place] [address] [place] [address] C3 Care Teams Crimping Press Operator Relationship Specialty Start Date End Date Stefanie Gibson FNP [address] [place] [phone] PCP - General Family Medicine 04/26/22 Jonathan Wall MD [address] [place] [address] Nephrology 08/11/24 Rowena Kennedy MD [address] [place] [address] Urology 08/11/24 Taty Coates MD [address] [place] [phone] Hematology and Oncology 08/11/24 anthony stewart Any Commodity BuyerAssembler Tubing 12/06/23
--- OUTSIDE RECORDS SUMMARY | 2024-09-26 07:47 | XMS_ITS | Clinical Summary ---
Author Organization [address] [place] [address] [place] [phone] Phone Care Team Providers Care Cleat Layer Name Role Phone Unavailable Primary Care Provider [...] Description 07/16/2024 12:40 PM EST Office Visit [facility] [address] [facility] [address] [place] [address] Rasheeda Lee NP Sinus tachycardia [...]
--- OUTSIDE RECORDS SUMMARY | 2024-09-26 07:47 | XMS_ITS | Encounter Summary ---
Author Organization [facility] [employer] Address [address] [place] [address] Care Team Providers Care Tetryl Dissolver Operator Name Role Phone Stefanie Gibson Primary Care Provider [phone] Jonathan Wall MD Unavailable Rowena Kennedy MD Unavailable Taty Coates MD Unavailable [phone] Reason for Visit * Reason Onset Date Comments Hospital Follow-up 03/17/2024 Encounter Details Date Type Department Care Team (Late st Contact Info) Description 03/17/2024 Telephone [facility] [address] [place] [address] Stefanie Gibson FNP [address] [place], [place] [phone] Hospital Follow-up Social History Tobacco Use Types [...] Miscellaneous Notes * Telephone Encounter - Siobhan Nguyen - 03/17/2024 2:50 PM EDT Tc from pt requesting a HDF appt. Hospital: [facility] Date of admission: 03/15 Discharge date: 03/17 Diagnosed: Kidney disease documented in this encounter Plan of Treatment Not on file documented as of this encounter Visit Diagnoses Not on filedocumented in this encounter Additional Health Concerns Assessment Noted Time PHQ-9 Depression Total Score: 8 02/27/20 24 3:30 PM EDT documented as of this encounter Care Teams Tetryl Dissolver Operator Relationship Specialty Start Date End Date Stefanie Gibson FNP [address] [place] [phone] PCP - General Family Medicine 04/26/22 Jonathan Wall MD [address] [place] [address] Nephrology 08/11/24 Rowena Kennedy MD [address] [place] [address] Urology 08/11/24 Taty Coates MD [address] [facility] [address] Hematology and Oncology 08/11/24 anthony stewart Help Desk RepMachine Adjuster Leader 12/06/23 documented as of this encounter
[2024-09-26] MEDS: iohexoL 350 MG/ML 100 ML INFUS..BTL 80 ML IV (08:34)
== END 2024-09-26 07:45 | disposition home or self-care (01) ==
LOC: HO.CT 07:44
PROVIDERS: PCP Registered Nurse; Visit Provider Surgery Vascular Surgery
DX: N28.0 Ischemia and infarction of kidney (principal)
CPT/HCPCS: 74174; Q9967

== ENCOUNTER → 2024-09-26 07:46 | Outpatient (BNV) | payer MEDICAID, SELFPAY | PROVIDERS: PCP Registered Nurse; Visit Provider Radiology Diagnostic Radiology | DX: N21.0 Calculus in bladder (principal); N28.89 Other specified disorders of kidney and ureter | CPT/HCPCS: 74174 ==

== ENCOUNTER 2024-10-21 10:22 | Outpatient (AMB) | payer MEDICAID, SELFPAY ==
--- NOTE | 2024-10-21 10:27 | A.OFFVIS_ITS ---
Intake Visit Reasons: follow up s/p CTA Abd/Pelvis 09/26/24 Intake Note: Patient presents for CTA Abd/Pelvis 09/26/24. No complaints. Accompanied by: Self / Same As Patient Allergies No Known Allergies Allergy (Verified 10/21/24 10:27) HPI HPI follow up s/p CTA Abd/Pelvis 09/26/24: Details: Very pleasant 39-year-old gentleman presents for follow-up evaluation regarding renal infarct. He originally presented to [facility] with left flank pain. He was worked up and subsequently was noted to have infarct of the left upper pole of the kidney. There was concern of stenosis/dissection of the left superior renal artery. 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 At that time he was anticoagulated. Appears to be doing fairly well. Has been following up with Hematology-Oncology and has been undergoing hypercoagulable workup. He now presents for routine follow-up. Upon discussion with him all his pain and discomfort appear to have resolved. [facility] Medical History HTN (hypertension) Testicular cyst Elevated blood pressure reading Renal infarct Severe anxiety Hepatic steatosis Periportal lymphadenopathy History of cocaine use Bipolar depression Sleep apnea Gout Class 2 obesity Allergic rhinitis Degenerative arthritis of lumbar spine Internal hemorrhoid Surgical History History of vasectomy H/O: knee surgery Status post gastric banding Family History Mother Diabetes Breast cancer Brother Diabetes Social History Alcohol intake: former Patient Tobacco Use Status: Current everyday Tobacco user Tobacco use type: Cigarette Cigarettes Per Day: 10 Substance Use Type: Former Substance User and Marijuana Review of Systems Const All systems reviewed & are unremarkable except as noted in HPI and below Reports no additional complaints ENT Reports Normal hearing present Card Denies chest pain, Denies chest pain at rest, Denies chest pain with activity and Denies pedal edema Resp Denies cough GI Denies abdominal pain Musc Denies abnormal gait, Denies muscle cramps and Denies radiating pain into limb Skin/Breast Denies skin ulcer and Denies wounds Neuro Reports Normal hearing present and Denies abnormal gait Psych Reports no additional complaints Physical Exam Const General: cooperative, healthy appearing and comfortable Orientation/consciousness: oriented to person, oriented to place and oriented to time HEENT Head: Yes normal to inspection Neck Neck: Yes normal visual inspection Carotids: no bruits Chest Chest palpation & inspection: normal inspection of the chest Resp Effort & Inspection: normal respiratory effort and able to speak in complete sentences Auscultation: clear to auscultation bilaterally, no crackles, no rales, no rhonchi and no wheezes Cardio Rate: regular rate Rhythm: regular rhythm Heart sounds: S1 normal heart sound present and S2 normal heart sound present Bruits: no carotid bruits Peripheral pulses: Peripheral pulses 2+ throughout GI Inspection: Yes normal to inspection Skin Wounds: no wounds Hair: normal Neuro General: oriented to person, oriented to place and oriented to time Cranial nerves: Yes CN's II-XII intact bilaterally and Yes Normal hearing present Cognition (Neuro): normal cognition Motor exam (neuro): 5/5 motor strength present throughout Extrem Other: venous exam: No significant superficial varicosities or spider telangiectasias, minimal edema General: No clubbing, No cyanosis and No edema Psych Appearance: grossly normal Mental Status: mental status grossly normal Speech and movement: Normal speech and movement present Results Reviewed Results Reviewed: CT scan dated 09/26/2024 demonstrates duplicate renal arteries. Left superior appears to have high-grade stenosis versus dissection. Left inferior is widely patent. Written report and images were reviewed. Assessment & Plan Assessment & Plan (1) Renal infarct: Comment: left Code(s): N28.0 - Ischemia and infarction of kidney Category: Medical Plan: In short patient has renal infarct of the left superior pole. It appears that the left superior artery high-grade stenosis versus dissection. He is being anticoagulated and appears to be stable with that. I do agree with Hematology- Oncology is plan of 6 months of anticoagulation in transition to an anti- platelet agent thereafter. He is stable from our perspective and will follow up with us on an as-needed basis. Thank you for allowing us to assist in his care. If there are any questions or concerns please do not hesitate to contact us. Coding Level of Care Code Est Pt Level 4 (54556) Diagnoses Renal infarct N28.0
--- OUTSIDE RECORDS SUMMARY | 2024-10-21 12:12 | XMS_ITS | Encounter Summary ---
Author Organization [employer] Address [address] [place] [address] Care Team Providers Care Oceanographic Meteorologist Name Role Phone Stefanie Gibson [employer] TRADER Primary Care Provider [phone] Jonathan Wall MD Unavailable Rowena Kennedy MD Unavailable Taty Coates MD Unavailable [phone] Reason for Visit * Reason Comments Med Refill Encounter Details Date Type Department Care Team ([facility] st Contact Info) Description 08/22/2024 Refill [facility] [address], [place] [phone] Stefanie Gibson FNP [address], [place] [phone] Renal infarct ([facility]/HCC) Social History Tobacco Use Types Packs/Day Years Used Date Smoking Tobacco: Every Day Cigarettes 0.5 29.2 Started: 1995 Smokeless Tobacco: Never Comments:Boxes Alcohol [...] documented as of this encounter Care Teams Oceanographic Meteorologist Relationship Specialty Start Date End Date Stefanie Gibson FNP [address] [place] [address] PCP - General Family Medicine 04/26/22 Jonathan Wall MD [address] [place] [address] Nephrology 08/11/24 Rowena Kennedy MD [address] [place] [address] Urology 08/11/24 Taty Coates MD [address] [place] [address] Hematology and Oncology 08/11/24 anthony stewart [employer] GunnerCoat Presser 12/06/23 documented as of this encounter
--- OUTSIDE RECORDS SUMMARY | 2024-10-21 12:12 | XMS_ITS | Encounter Summary ---
Author Organization [employer] Address [address] [facility] [address] [place] [address] Care Team Providers Care Youth Nutritional Monitor Name Role Phone Stefanie Gibson CLINICAL PROJECT COORDINATOR Primary Care Provider [phone] Jonathan Wall MD Unavailable Rowena Kennedy MD Unavailable Taty Coates MD Unavailable [phone] Reason for Visit * Reason Comments Med Refill Encounter Details Date Type Department Care Team ([facility] st Contact Info) Description 08/11/2024 Refill [facility] [address] [place], [place] [phone] Stefanie Gibson FNP [address] [place], [place] [phone] Renal infarct ([facility]/HCC) Social History Tobacco Use Types Packs/Day Years [...] documented as of this encounter Care Teams Youth Nutritional Monitor Relationship Specialty Start Date End Date Stefanie Gibson FNP [address] [place] [address] PCP - General Family Medicine 04/26/22 Jonathan Wall MD [address] [place] [address] Nephrology 08/11/24 Rowena Kennedy MD [address] [place] [address] Urology 08/11/24 Taty Coates MD [address] [place] [address] Hematology and Oncology 08/11/24 anthony stewart Window InstallerDriller Hand 12/06/23 documented as of this encounter
--- OUTSIDE RECORDS SUMMARY | 2024-10-21 12:13 | XMS_ITS | Clinical Summary ---
Author Organization [employer] Address [address] [facility] [address] [place] [address] Care Team Providers Care Panelboard Assembler Name Role Phone Stefanie Gibson SANDRA Primary Care Provider [phone] Jonathan Wall MD Unavailable Rowena Kennedy MD Unavailable Taty Coates MD Unavailable [phone] Allergies Active Allergy Reactions Criticality Noted Date Comments Gramineae Pollens 09/24/2022 Medications * This document contains information received from the source organization and may not represent a complete record from that organization. Melatonin 3 MG capsule Take 9mg by mouth nightly PRN for sleep 90 capsule 02/14/20 23 Active naltrexone (Depade) 50 MG tablet Take 1 tablet (50 mg) by mouth Once daily. 30 tablet 1 04/04/20 23 Active traZODone (Desyrel) 50 MG tablet TAKE 1 TABLET BY MOUTH AT BEDTIME IF NEEDED FOR SLEEP 30 tablet 04/24/20 23 Active colchicine 0.6 MG tabletIndicatio ns:Gout, unspecified cause, unspecified chronicity, unspecified site Take 1 tablet by oral route 3 times per day on Day #1 of flare, followed by 2 times per day until 2 days AFTER gout flare resolves 21 tablet 2 11/19/19 24 Active cyclobenzaprine (Flexeril) 10 MG tablet TAKE 1 TABLET BY MOUTH NEEDED EVERY MORNING AND AT NOON AND BEDTIME FOR MUSCLE SPASMS. 03/09/20 24 Active Blood Pressure kitIndications: Elevated blood pressure reading Use to check blood pressure once daily and if symptomatic 1 kit 04/04/20 24 Active Xarelto 20 MG tabletIndicatio ns:Renal infarct (CMS/HCC) TAKE 1 TABLET(20 MG) BY MOUTH WITH THE EVENING MEAL WITH FOOD 90 tablet 05/16/20 24 Active busPIRone (Buspar) 10 MG tablet Take 1 tablet (10 mg) by mouth 2 times daily. 60 tablet 2 08/11/20 24 Active albuterol (Ventolin HFA) 108 (90 Base) MCG/ACT inhaler Inhale 2 puffs every 6 (six) hours if needed for wheezing. 18 g 11 08/11/20 24 Active gabapentin (Neurontin) 300 MG capsule TAKE 1 CAPSULE(300 MG) BY MOUTH THREE TIMES DAILY 90 capsule 5 08/11/20 24 Active lamoTRIgine (LaMICtal) 100 MG tablet Take 1 tablet (100 mg) by mouth 2 times daily. 60 tablet 2 08/11/20 24 Active cloNIDine (Catapres) 0.1 MG tablet Take 1 tablet (0.1 mg) by mouth 2 times daily. 60 tablet 3 08/11/20 24 Active allopurinol (Zyloprim) 300 MG tablet Take 1 tablet (300 mg) by mouth Once per day. 90 tablet 1 08/11/20 24 Active amLODIPine (Norvasc) 10 MG tablet TAKE 1 TABLET(10 MG) BY MOUTH DAILY 90 tablet 2 10/03/19 25 Active amLODIPine (Norvasc) 10 MG tablet Take 1 tablet (10 mg) by mouth Once per day. 90 tablet 1 05/19/20 24 025 Discontinued Active Problems Problem Noted Date Diagnosed Date Gross hematuria 08/28/2024 Overview (08/28/2024): Following with [facility] Urology - Dr. Rowena Green. Cystoscopy completed Jun 2024. No suspicious bladder lesions identified Urine cytology: Jul 2024 - atypical urothelial cells. Irregular nuclear contours and coarse chromatin. 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 Large accessory left renal artery which is intact Following with [facility] - Dr. Jonathan Wall. Referred to vascular as may need repeat imaging studies and consideration of renal artery stenting. Avoid NSAID. Cont good hydration and BP control. Candidate for ARB in future. Following with [facility] Heme/Onc Dr. Coates. Last [...] renal artery which is intact Following with [facility] - Dr. Jonathan Wall. Last consult 04/14/24. Referred to vascular as may need repeat imaging studies and consideration of renal artery stenting. Avoid NSAID. Cont good hydration and BP control Following with [facility] Heme/Onc Dr. Coates. Last [...] (04/28/2024 6:16 PM EDT): Incidental finding from [facility] Hospitalization February 2024: 3mm tunica cyst overlying the left testicle, small bilateral epididymal cysts, small left varicocele Currently asymptomatic, Follow up precautions Referral to Urology placed 04/28/24 Assessment & Plan (04/06/2024 12:41 PM EDT): Incidental finding from [facility] Hospitalization February 2024: 3mm tunica cyst overlying [...] 06/10/2023 Overview (07/30/2023): ?? 11/08/22: CT at [facility] w/ following impression: Periliac/periportal lymph nodes and several retroperitoneal lymph nodes which was not definitely pathologically enlarged. Recommend clinical correlation in 3 months to re-assess (January 2023) ?? Repeat CT 04/05/23 at [facility]: Impression: Hepatic steatosis and hepatomegaly with adjacent [...] Bipolar Disorder , and Trauma services including OP Psychotherapy psychopharmacology who presents for Bipolar and [...] Self Plan Patient to reach out to [facility] team as needed, Patient to engage in [...] established with therapist and med management through [facility]. Interested in switching to other clinic due [...] with therapist (Lalo) and med management through [facility]. Assessment & Plan (03/19/2023 9:17 AM EDT): [...] continued OP therapy and medication management with [facility]. At this time Eyal Rashid meets criteria for Visit Diagnoses: Problem List Items Addressed This Visit Other Bipolar depression (CMS/HCC) Patient ready to address current needs Yes Strengths- Eyal has a variety of coping mechanism and is supported by his partner. He is in the action stage of change. PLAN: 1. Follow up with [facility]: Not recommended for follow-up 2. Patient goal is to continue OP therapy and medication management with [facility] 3. Behavioral Recommendations a. Grounding exercises [...] of self harm Established with therapist - [facility]. Plan to establish with psychiatrist shortly [...] his partner PLAN: 1. Follow up with [facility]: Recommended for follow-up: with PCP03/16/2023 2. Patient [...] Last flare: February 2024 while hospitalized at [facility] Encouraged low purine diet Assessment & Plan (11/20/2023 6:54 PM EDT): Continue allopurinol 300mg daily Previous flare subsided, sent in refill of colchicine PRN flares Encouraged low purine diet Sleep apnea 02/13/2023 Overview (06/10/2023): ?? Sleep study completed 04/03/23 at [facility]. Diagnosed with HELEN. Recommendation [...] & Plan (11/20/2023 6:52 PM EDT): Colonoscopy [facility] October 2022: Large internal [...] (08/05/2023 9:16 PM EST): ? ? Colonoscopy [facility] October 2022: Large internal [...] Continue APAP PRN Aug 2023: established with [facility]. Plan for diagnostic bilateral L3, [...] Continue APAP PRN Aug 2023: established with [facility]. Plan for diagnostic bilateral L3, [...] for muscle spasms PRN ?? Referral to [facility] Pain Management on 07/30/23 Assessment & Plan (06/10/2023 10:47 AM EDT): ?? CT on the ED October 2022 showed degenerative changes of the lower thoracic spine and degenerative disc disease L4-L5 and L5-S1 ?? Referred to [facility] for further eval ?? Continue APAP PRN ?? Cont flexeril for muscle spasms PRN Assessment & Plan (01/16/2023 8:37 AM EDT): ?? CT on the ED October 2022 showed degenerative changes of the lower thoracic spine and degenerative disc disease L4-L5 and L5-S1 ?? Referral to [facility] for further eval ?? [...] Encounters Date Type Department Care Team Description 09/27/2024 Refill [facility] [address] [place] [address] Stefanie Gibson FNP 09/26/2024 Orders Only [facility] External Provider, [facility] 09/18/2024 Telephone [facility] [address] [place] [address] Stefanie Gibson FNP TC: Med Refill Request 09/18/2024 Refill [facility] [address] [place] [address] Stefanie Gibson, WINDING RACK OPERATOR Renal infarct ([facility]/HCC) 09/17/2024 Telephone [facility] [address] [place] [address] Stefanie Gibson, WINDING RACK OPERATOR PCP Request X-Ray records 08/22/2024 Refill [facility] [address] [place] [address] Stefanie Gibson, WINDING RACK OPERATOR Renal infarct ([facility]/HCC) 08/11/2024 9:00 AM EST Office Visit [facility] [address] [place] [address] Stefanie Gibson, WINDING RACK OPERATOR Renal infarct ([facility]/HCC) (Primary Dx); Primary hypertension; Obstructive sleep apnea syndrome; Gross hematuria; History of knee surgery; Bipolar depression ([facility]/HCC) 08/11/2024 Travel 08/11/2024 Refill [facility] [address] [place] [address] Stefanie Gibson, WINDING RACK OPERATOR Renal infarct ([facility]/HCC) 08/07/2024 Telephone [facility] [address] [place] [address] Elle Marshall MA Chart Prep 08/05/2024 Refill [facility] [address], [place] [phone] Stefanie Gibson, WINDING RACK OPERATOR from Last 3 Months Immunizations Name Administration [...] Procedure Name Priority Date/Time Associated Diagnosis Comments CTA ABDOMEN PELVIS W AND WO CONTRAST Routine 09/26/2024 8:07 AM EST CYTOPATH-CELL ENHANCED Routine 07/29/2024 8:41 AM EST HEPATITIS C AB W/REFL TO HCV RNA, QN, PCR Routine 04/22/2024 3:12 PM EDT Hepatic steatosis LIPID PANEL, STANDARD Routine 04/22/2024 3:12 PM EDT from Last 3 Months or Most Recently Relevant to Health Maintenance Results * CTA Abdomen Pelvis w/ and w/o Contrast (09/26/2024 8:07 AM EST) Anatomical Region Laterality Modality Body, Pelvis, Abdomen Computed T omography 09/26/2024 8:07 AM EST Narrative 09/26/2024 9:05 AM EST ? [facility] ?[address] ?[place] [address] ? CT Scan Report ? Signed ? Patient: Eyal Rashid ?MR#: [id number] ?? [id number] ? : 1985 ?Acct:[id number] ? Age/Sex: 39 / M ?ADM Date: 09/26/24 ? Loc: HO.CT ? Attending Dr: Johnathan Garcia MD ? Ordering Physician: Johnathan Garcia MD ?? Date of Service: 09/26/24 ?? Procedure(s): CT angio abdomen pelvis ?? Accession Number(s): [id number] ? cc: Johnathan Garcia MD; Stefanie Gibson WINDING RACK OPERATOR ? Report Number: ?? [id number]: Total DLP = ??306.00 mGy-cm ?? EXAMINATION: ??CT ABDOMEN PELVIS ANGIOGRAPHY WITH IV CONTRAST ? HISTORY: N28.0 - Ischemia and infarction of kidney ? COMPARISON: None. ? TECHNIQUE: CT scan of the abdomen and pelvis was performed after the ?? intravenous administration of 80 mL Omnipaque 350. ??Scanning was timed ?? to optimally enhanced the arterial system. Coronal and sagittal ?? reformatted images were generated and reviewed. ??Oral contrast material ?? was not administered per department protocol. ? This CT exam was performed with one or more of the following dose ?? reduction techniques: automated exposure control, adjustment of the mA ?? and/or kV according to patient size, use of iterative reconstruction ?? technique. ? DLP: 306 mGy-cm ? ABDOMEN: ? LOWER CHEST: The visualized lung bases are clear. There is no pleural ?? effusion. ? CARDIOVASCULATURE: The heart is normal in size. ??There is no ?? pericardial effusion. ? LIVER: ??The liver is normal in size and contour. ??No liver mass is ?? identified. The hepatic and portal veins are patent. ? GALLBLADDER / BILE DUCTS: ??The gallbladder is unremarkable. There is no ?? intra or extrahepatic biliary ductal dilatation. ? SPLEEN: The spleen is normal in size. No focal splenic lesion is ?? identified. ? PANCREAS: The pancreas is unremarkable in appearance. ? ADRENAL GLANDS: There is a 1.7 cm right adrenal nodule. The left ?? adrenal gland is unremarkable.. ? KIDNEYS/RETROPERITONEUM: There is scarring at the anterior aspect of ?? the upper pole of the left kidney, consistent with the clinical history ?? of infarction. No renal calculi are identified. There is no ?? hydronephrosis. ??No renal masses are identified. ? LYMPH NODES: ??No abdominal or pelvic lymphadenopathy. ? VASCULATURE: ??The abdominal aorta is normal in caliber and is widely ?? patent. The celiac axis, superior mesenteric artery, and inferior ?? mesenteric arteries are patent. The bilateral common and external iliac ?? arteries are widely patent. There are 2 renal arteries bilaterally. The ?? right renal arteries are widely patent. On the left, there is a ?? probable moderate to severe focal stenosis of the origin of the more ?? superior renal artery. The left inferior renal artery appears widely ?? patent. ? MESENTERY/PERITONEUM: No free fluid. No masses. ??There is no free ?? intraperitoneal gas. ? STOMACH: ??The patient is status post laparoscopic gastric band ?? procedure. ? SMALL BOWEL: ?? The small bowel is normal in caliber. ? COLON: ??The colon is unremarkable. ? APPENDIX: ??Normal. ? URINARY BLADDER/PELVIC ORGANS: There is a 4 mm calculus in the urinary ?? bladder adjacent to the left UVJ. ??The prostate is normal in size. ? BONES / SOFT TISSUES: ??No suspicious bony or soft tissue abnormalities. ? CT/CT angio abdomen pelvis ?? IMPRESSION: ? 1. Scarring at the anterior aspect of the upper pole of the left ?? kidney, consistent with the clinical history of infarct. ? 2. Two renal arteries are noted bilaterally. There is a probable ?? moderate to severe focal stenosis of the origin of the more superior ?? left renal artery. ? 3. 4 mm calculus in the urinary bladder adjacent to the left UVJ. ? Electronically signed by: ??Jonathan Tran MD ??09/26/2024 09:02 AM EST ?? RP ? Dictated By: ?Jonathan Tran MD ? Signed By: ?<Electronically signed by Jonathan Tran MD in OV> ?09/26/24 0902 ? DD/ 0807 ? TD/TT: 09/26/24 0833 ? Jigger Crown Pouncing Machine Operator: ? Procedure Note Janey, Hilton - 09/26/[address] [address] [address] Scan Report Signed Patient: Eyal Rashid R#: [id number] : 1985Acct:[id number] Age/Sex: 39 / MADM Date: 09/26/24 Loc: HO.CT Attending Dr: Johnathan Garcia MD Ordering Physician: Johnathan Garcia MD Date of Service: 09/26/24 Procedure(s): CT angio abdomen pelvis Accession Number(s): [id number] cc: Johnathan Garcia MD; Stefanie Gibson [facility] Report Number: [id number]: Total DLP = 306.00 mGy-cm EXAMINATION: CT ABDOMEN PELVIS ANGIOGRAPHY WITH IV CONTRAST HISTORY: N28.0 - Ischemia and infarction of kidney COMPARISON: None. TECHNIQUE: CT scan of the abdomen and pelvis was performed after the intravenous administration of 80 mL Omnipaque 350. Scanning was timed to optimally enhanced the arterial system. Coronal and sagittal reformatted images were generated and reviewed. Oral contrast material was not administered per department protocol. This CT exam was performed with one or more of the following dose reduction techniques: automated exposure control, adjustment of the mA and/or kV according to patient size, use of iterative reconstruction technique. DLP: 306 mGy-cm ABDOMEN: LOWER CHEST: The visualized lung bases are clear. There is no pleural effusion. CARDIOVASCULATURE: The heart is normal in size. There is no pericardial effusion. LIVER: The liver is normal in size and contour. No liver mass is identified. The hepatic and portal veins are patent. GALLBLADDER / BILE DUCTS: The gallbladder is unremarkable. There is no intra or extrahepatic biliary ductal dilatation. SPLEEN: The spleen is normal in size. No focal splenic lesion is identified. PANCREAS: The pancreas is unremarkable in appearance. ADRENAL GLANDS: There is a 1.7 cm right adrenal nodule. The left adrenal gland is unremarkable.. KIDNEYS/RETROPERITONEUM: There is scarring at the anterior aspect of the upper pole of the left kidney, consistent with the clinical history of infarction. No renal calculi are identified. There is no hydronephrosis. No renal masses are identified. LYMPH NODES: No abdominal or pelvic lymphadenopathy. VASCULATURE: The abdominal aorta is normal in caliber and is widely patent. The celiac axis, superior mesenteric artery, and inferior mesenteric arteries are patent. The bilateral common and external iliac arteries are widely patent. There are 2 renal arteries bilaterally. The right renal arteries are widely patent. On the left, there is a probable moderate to severe focal stenosis of the origin of the more superior renal artery. The left inferior renal artery appears widely patent. MESENTERY/PERITONEUM: No free fluid. No masses. There is no free intraperitoneal gas. STOMACH: The patient is status post laparoscopic gastric band procedure. SMALL BOWEL: The small bowel is normal in caliber. COLON: The colon is unremarkable. APPENDIX: Normal. URINARY BLADDER/PELVIC ORGANS: There is a 4 mm calculus in the urinary bladder adjacent to the left UVJ. The prostate is normal in size. BONES / SOFT TISSUES: No suspicious bony or soft tissue abnormalities. CT/CT angio abdomen pelvis IMPRESSION: 1. Scarring at the anterior aspect of the upper pole of the left kidney, consistent with the clinical history of infarct. 2. Two renal arteries are noted bilaterally. There is a probable moderate to severe focal stenosis of the origin of the more superior left renal artery. 3. 4 mm calculus in the urinary bladder adjacent to the left UVJ. Electronically signed by: Jonathan Tarn MD 09/26/2024 09:02 AM EST Dictated By: Jonathan Tran MD Signed By: <Electronically signed by Jonathan Tran MD in OV> 09/26/24901 DD/ 6 TD/TT: 09/26/24 0833 Jigger Crown Pouncing Machine Operator: [facility] External Provider IMG CT PROCEDURES Final Result * Cytopath-cell enhanced (07/29/2024 8:41 AM EST) 07/29/2024 8:41 AM EST 07/29/2024 10:10 AM EST [facility] - 07/31/2024 8:31 AM EST ----- ------- Name: Eyal Rashid ?Age/Sex: 39/M ? : 1985 Unit#: [id number] ?? Attend Dr: Rowena Green MD ?Re07/28/24 ?Status: DEP REF ? [facility] ?Disch: ? ----- ------- SPEC : [id number] ?RECD: 07/29/24-1010 ? STATUS: ??SOUT ? REQ NUM: [id number] ? ZOLTAN: 07/29/24-41 ? SUBM DR: Rowena Green MD ? ENTERED: ??07/29/24-1316 ?SP TYPE: Cytology ? OTHR DR: Stefanie Gibson WINDING RACK OPERATOR ? ORDERED: ??Cyto-enhanced ? Diagnosis ?? Urine: [...] Copies To: ?? Rowena Green MD ?? [facility] ?? [address] ?? [place] [address] ?? [phone] ?? [email or web address] ?? Stefanie Gibson WINDING RACK OPERATOR ?? [address] [facility] [facility] [address] [facility] ?? [place] [address] ?? [phone] ----- ------- Signed (signature on file) Moi Sun MD 07/31/24 0831 ? ----- ------- ? END OF REPORT ? us Generic External Data Provider LAB CYTOLOGY PATRICIA MEJIA Final Result [facility] [address] [place] [address] [phone] * Hepatitis C Antibody with Reflex to HCV, RNA, Quantitative, Real-Time PCR (04/22/2024 3:12 PM EDT) Hepatitis C Antibody Nonreactive Nonreactive [facility] Comment:Antibodies to HCV no t detected; does not exclude early acuteHCV infection. Blood Venous blood specimen / Unknown 04/22/2024 3:12 PM EDT 04/22/2024 3:12 PM EDT us Stefanie Gibson WINDING RACK OPERATOR LAB BLOOD ORDERABLES Final Res ult [facility] [address] [place] [address] [phone] * (ABNORMAL) Lipid Panel, Standard (04/22/2024 3:12 PM EDT) Triglycerides 140 <150 mg/dL [facility] Comment:Desirable Triglyceri de: less than 150 mg/dLBorderline High Triglyceride 150-199 mg/dLHigh Triglyceride: 200-499 mg/dLVery High Triglyceride: greater than or equal to 5OO mg/dL Cholesterol 179 <200 mg/dL [facility] Comment:Desirable Cholestero l: less than 200 mg/dLBorderline High Cholesterol: 200-239 mg/dLHigh Cholesterol: greater than 239 mg/dL LDL Cholesterol Calculated 111(H) <100 mg/dL [facility] Comment:Desirable LDL: less than 100 mg/dLNear Optimal/Above Optimal LDL: 110- 129 mg/dLBorderline High LDL: 130-159 mg/dLHigh LDL: 160-189 mg/dLVery High LDL: greater than or equal to 190 mg/dL HDL Cholesterol 40(L) >40 mg/dL [facility] Comment:Desirable HDL: great er than 40 mg/dL Note: This HDL assay may give artificially low results in patients with liver disease. 04/22/2024 3:12 PM EDT 04/22/2024 3:12 PM EDT us Generic External Data Provider LAB BLOOD ORDERAB LES Final Result [facility] [address] [place] [address] [phone] from Last 3 Months or Most Recently Relevant to Health Maintenance Insurance Care Teams Panelboard Assembler Relationship Specialty Start Date End Date Stefanie Gibson FNP [address] [place] [phone] PCP - General Family Medicine 04/26/22 Jonathan Wall MD [address] [place] [address] Nephrology 08/11/24 Rowena Kennedy MD [address] [place] [address] Urology 08/11/24 Taty Coates MD [address] [place] [address] Hematology and Oncology 08/11/24 anthony stewart Textile Machine Maintenance MechanicWindsmith 12/06/23
--- OUTSIDE RECORDS SUMMARY | 2024-10-21 12:13 | XMS_ITS | Encounter Summary ---
Author Organization [employer] Address [address] [place] [address] Care Team Providers Care Traffic Or System Dispatcher Name Role Phone Stefanie Gibson Primary Care Provider [phone] Jonathan Wall MD Unavailable Rowena Kennedy MD Unavailable Taty Coates MD Unavailable [phone] Reason for Visit * Reason Onset Date Comments Hospital Follow-up 03/17/2024 Encounter Details Date Type Department Care Team (Late st Contact Info) Description 03/17/2024 Telephone [facility] [address] [place] [address] Stefanie Gibson FNP [address] [place], [place] [phone] Hospital Follow-up Social History Tobacco Use Types [...] from pt requesting a HDF appt. Hospital: [facility] Date of admission: 03/15 Discharge date: 03/17 Diagnosed: Kidney disease documented in this encounter Plan of Treatment Not on file documented as of this encounter Visit Diagnoses Not on filedocumented in this encounter Additional Health Concerns Assessment Noted Time PHQ-9 Depression Total Score: 8 02/27/20 24 3:30 PM EDT documented as of this encounter Care Teams Traffic Or System Dispatcher Relationship Specialty Start Date End Date Stefanie Gibson FNP [address] [place] [phone] PCP - General Family Medicine 04/26/22 Jonathan Wall MD [address] [place] [address] Nephrology 08/11/24 Rowena Kennedy MD [address] [place] [address] Urology 08/11/24 Taty Coates MD [address] [place] [address] Hematology and Oncology 08/11/24 anthony stewart Solar Pv InstallerAcid Bath Mixer 12/06/23 documented as of this encounter
--- OUTSIDE RECORDS SUMMARY | 2024-10-21 12:13 | XMS_ITS | Encounter Summary ---
Author Organization [employer] Address [address] [place] [address] Care Team Providers Care Administrative Officer Name Role Phone Stefanie Gibson Primary Care Provider [phone] Jonathan Wall MD Unavailable Rowena Kennedy MD Unavailable Taty Coates MD Unavailable [phone] Reason for Visit * Reason Comments Med Refill Encounter Details Date Type Department Care Team (Late st Contact Info) Description 09/27/2024 Refill [facility] MEDICINE [address] [place] [address] Stefanie Gibson FNP [address] [place], [place] [phone] Social History Tobacco Use Types Packs/Day Years [...] documented as of this encounter Care Teams Administrative Officer Relationship Specialty Start Date End Date Stefanie Gibson FNP [address] [place] [address] PCP - General Family Medicine 04/26/22 Jonathan Wall MD [address] [place] [address] Nephrology 08/11/24 Rowena Kennedy MD [address] [place] [address] Urology 08/11/24 Taty Coates MD [address] [place] [address] Hematology and Oncology 08/11/24 anthony stewart Bottom IronerFreezer Unloader 12/06/23 documented as of this encounter
--- OUTSIDE RECORDS SUMMARY | 2024-10-21 12:13 | XMS_ITS | Encounter Summary ---
Author Organization [email or web address] Address [address] [place] [address] Care Team Providers Care Prototype Machine Operator Name Role Phone Stefanie Gibson SANDRA Primary Care Provider [phone] Jonathan Wall MD Unavailable Rowena Kennedy MD Unavailable Taty Coates MD Unavailable [phone] Encounter Details Date Type Department Care Team (Late st Contact Info) Description 09/26/2024 Orders Only [facility] External Provider, [facility] Social History Tobacco Use Types Packs/Day Years [...] on file documented as of this encounter Procedures Procedure Name Priority Date/Time Associated Diagnosis Comments CTA ABDOMEN PELVIS W AND WO CONTRAST Routine 09/26/2024 8:07 AM EST documented in this encounter Results * CTA Abdomen Pelvis w/ and w/o Contrast (09/26/2024 8:07 AM EST) Anatomical Region Laterality Modality Body, Pelvis, Abdomen Computed T omography 09/26/2024 8:07 AM EST Narrative 09/26/2024 9:05 AM EST ? [facility] ?[address] ?[place] [address] ? CT Scan Report ? Signed ? Patient: Gay,Eyal O ?MR#: [id number] ?? [id number] ? : 1985 ?Acct:[id number] ? Age/Sex: 39 / M ?ADM Date: 09/26/24 ? Loc: HO.CT ? Attending Dr: Johnathan Garcia MD ? Ordering Physician: Johnathan Garcia MD ?? Date of Service: 09/26/24 ?? Procedure(s): CT angio abdomen pelvis ?? Accession Number(s): [id number] ? cc: Johnathan Garcia MD; Stefanie Gibson [employer] ? Report Number: ?? [id number]: Total DLP = ??306.00 mGy-cm ?? EXAMINATION: [...] DD/ 0807 ? TD/TT: 09/26/24 0833 ? Grounds Cleaner: ? Procedure Note Janey, Image - 09/26/[address] [address] [address] Scan Report Signed Patient: Eyal Rashid R#: [id number] : 1985Acct:[id number] Age/Sex: 39 / MADM Date: 09/26/24 Loc: HO.CT Attending Dr: Johnathan Garcia MD Ordering Physician: Johnathan Garcia MD Date of Service: 09/26/24 Procedure(s): CT angio abdomen pelvis Accession Number(s): [id number] cc: Johnathan Garcia MD; ArthurStefanie [facility] Report Number: [id number]: Total DLP = 306.00 mGy-cm EXAMINATION: CT [...] the left UVJ. Electronically signed by: Jonathan Tran MD 09/26/2024 09:02 AM EST Dictated By: Jonathan Tran MD Signed By: <Electronically signed by Jonathan Tran MD in OV> 09/26/24 09 DD/ 0807 TD/TT: 09/26/24 0833 Grounds Cleaner: [facility] External Provider IMG CT PROCEDURES Final Result documented in this encounter Visit Diagnoses Not on filedocumented in this encounter Additional Health Concerns Assessment Noted Time PHQ-9 Depression Total Score: 8 02/27/20 24 3:30 PM EDT documented as of this encounter Care Teams Prototype Machine Operator Relationship Specialty Start Date End Date Stefanie Gibson FNP [address] [place] [address] PCP - General Family Medicine 04/26/22 Jonathan Wall MD [address] [place] [address] Nephrology 08/11/24 Rowena Kennedy MD [address] [place] [address] Urology 08/11/24 Taty Coates MD [address] [place] [address] Hematology and Oncology 08/11/24 anthony stewart Intellectual Property LawyerHigh School History Teacher 12/06/23 documented as of this encounter
--- OUTSIDE RECORDS SUMMARY | 2024-10-21 12:13 | XMS_ITS | Clinical Summary ---
Author Organization [address] [place] [address] Address [address] [place] [address] Phone Care Team Providers Care Tar Heat Exchanger Cleaner Name Role Phone Unavailable Primary Care Provider Unavailabl e Allergies No known active allergies Medications lamoTRIgine (LaMICtal) 100 mg tablet Take 1 [...] PM EST): Continues on Xarelto. Hypokalemia 06/18/2024 Surgical History Surgery Date Site/Laterality Comments GASTRIC [...] Recorded Sex Assigned at Not on file Legal Sex Male 1:51 PM EST Gender Identity Not on file Sexual Orientation Not on file Obstetrics History Last Filed [...] Influencers of Health Screening 07/25/2022 COVID-19 Vaccine ( season) 2024 10/20/2020, 09/29/2020 Influenza Vaccine (#1) [...] patient's age to complete this topic Meningococcal B Vacine Aged Out No lo nger eligible based on patient's age to complete this topic RSV Immunization Patients Under 20 months Aged Out No longer eligible based on patient's age to complete this topic Varicella Vaccines Aged Out No longer eligible based on patient's age to complete this topic Insurance [place] - [place]
== END 2024-10-21 10:52 | disposition home or self-care (01) ==
PROVIDERS: PCP Registered Nurse; Visit Provider Surgery Vascular Surgery
DX: N28.0 Ischemia and infarction of kidney (principal)
CPT/HCPCS: 99214

== ENCOUNTER → 2024-10-21 10:22 | Outpatient (BNVA) | payer MEDICAID, SELFPAY | PROVIDERS: PCP Registered Nurse; Visit Provider Surgery Vascular Surgery | DX: N28.0 Ischemia and infarction of kidney (principal) | CPT/HCPCS: 99212 ==

== ENCOUNTER 2024-12-02 10:16 | Outpatient (AMB) | payer MEDICAID, SELFPAY ==
--- NOTE | 2024-12-02 10:37 | HO.NEPHOV_ITS ---
Vital Signs 12/02/24 10:38 Height 5 ft 8 in Weight 240 lb 6 oz BMI 36.5 BP 100/70 Blood Pressure Location Lt brachial Position Sitting Pulse 102 H Pulse Source Pulse Oximeter Pulse Oximetry (%) 95 Oxygen Delivery Method Room Air Intake Visit Reasons: 6m follow up-Conf Sugar Drier Required: No Accompanied by: Self / Same As Patient Allergies No Known Allergies Allergy (Verified 12/02/24 10:38) HPI Comments Details: Eyal was seen in follow up for H/O renal infarction and hypertension . 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 He has history hypertension and has been on clonidine which he takes for his mental health treatment. He has history of cocaine use. He has no history of any peripheral arterial disease, DVT, autoimmune diseases, renal dysfunction, coronary artery disease, carotid stenosis, CVA, CHF or known LUDWIN. He underwent anticoagulation during the hospital stay and was seen by the vascular surgery team in [facility]. He was asked to continue his anticoagulation and follow-up with his PCP. He is currently pain free. He does not have any hematuria. His blood pressure remains uncontrolled. He denies chest pain, shortness of breath, paroxysmal nocturnal dyspnea, orthopnea, pedal edema, orthostatic symptoms, palpitation or urinary symptoms [facility] Medical History HTN (hypertension) Testicular cyst Elevated blood pressure reading Renal infarct Severe anxiety Hepatic steatosis Periportal lymphadenopathy History of cocaine use Bipolar depression Sleep apnea Gout Class 2 obesity Allergic rhinitis Degenerative arthritis of lumbar spine Internal hemorrhoid Surgical History History of vasectomy H/O: knee surgery Status post gastric banding Family History Mother Diabetes Breast cancer Brother Diabetes Social History Alcohol intake: former Patient Tobacco Use Status: Current everyday Tobacco user Tobacco use type: Cigarette Cigarettes Per Day: 10 Substance Use Type: Former Substance User and Marijuana Review of Systems Const All systems reviewed & are unremarkable except as noted in HPI and below Physical Exam Vital Signs: Last Vital Signs Pulse 102 H 12/02/24 10:38 BP 100/70 12/02/24 10:38 Pulse Ox 95 12/02/24 10:38 Oxygen Delivery Method Room Air 12/02/24 10:38 BMI result Body Mass Index 36.5 Const General: comfortable and no acute distress Orientation/consciousness: patient oriented x3 HEENT Head: Yes normocephalic Mouth: Normal oral and palatal mucosa present Eyes EOM: EOMs intact bilaterally Neck Neck: Yes supple Resp Auscultation: clear to auscultation bilaterally Cardio Jugular venous distension: no JVD Rate: regular rate GI Palpation (GI): Soft to palpation Auscultation: normal bowel sounds General: Yes no CVA tenderness Back/Spine/Pelvis Back: no CVA tenderness Skin General skin exam: no rashes or lesions noted Neuro General: patient oriented x3 and moves all extremities Extrem General: Yes no pedal edema Assessment & Plan Assessment & Plan (1) Hypertension: Code(s): I10 - Essential (primary) hypertension Category: Medical Qualifiers: Hypertension type: primary hypertension Qualified Code(s): I10 - Essential (primary) hypertension (2) Dissection of left renal artery: Code(s): I77.73 - Dissection of renal artery Category: Medical (3) Renal infarct: Comment: left Code(s): N28.0 - Ischemia and infarction of kidney Category: Medical Plan Eyal had 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 His serum creatinine is stable now. He was anticoagulated initially with heparin which was subsequently switched to Xarelto. He has had history of cocaine use. He has seen Hematology. He followed up with Dr. Garcia who is the v ascular surgeon in [facility]. He should avoid nonsteroidal anti- inflammatories, maintain good hydration and keep his blood pressure at goal. I would not start him on on any KIMBERLY inhibitor or ARB at this moment but is a candidate for it in the future. His blood pressure needs to kept at goal of less than 130/80 mmHg. All questions answered. Follow-up appointment given Orders: Orders UA and rflx microscopic 7 Months I10 - Essential (primary) hypertension, I77.73 - Dissection of renal artery, N28.0 - Ischemia and infarction of kidney Electrolytes 7 Months I10 - Essential (primary) hypertension, I77.73 - Dissection of renal artery, N28.0 - Ischemia and infarction of kidney Creatinine 7 Months I10 - Essential (primary) hypertension, I77.73 - Dissection of renal artery, N28.0 - Ischemia and infarction of kidney Protein Creatinine Ratio, Ur 7 Months I10 - Essential (primary) hypertension, I77.73 - Dissection of renal artery, N28.0 - Ischemia and infarction of kidney Blood Urea Nitrogen 7 Months I10 - Essential (primary) hypertension, I77.73 - Dissection of renal artery, N28.0 - Ischemia and infarction of kidney Coding Level of Care Code Est Pt Level 4 (37366) Diagnoses Primary hypertension I10 Hypertension type: primary hypertension Dissection of left renal artery I77.73 Renal infarct N28.0
[2024-12-02 10:38] VITALS: BP 100/70; PULSE 102; O2SAT 95; BMI 36.5
--- OUTSIDE RECORDS SUMMARY | 2024-12-02 12:07 | XMS_ITS | Clinical Summary ---
Author Organization [address] [place] [address] Address [address] [place] [address] Phone Care Team Providers Care Design Supervisor Name Role Phone Unavailable Primary Care Provider [...] age to complete this topic Meningococcal B Vaccine Aged Out No l onger eligible based on patient's age to complete this topic RSV Immunization Patients Under 20 months Aged Out No longer eligible based on patient's age to complete this topic Varicella Vaccines Aged Out No longer eligible based on patient's age to complete this topic Insurance [place]ICAID - [place]
--- OUTSIDE RECORDS SUMMARY | 2024-12-02 12:07 | XMS_ITS | Encounter Summary ---
Author Organization [employer] Address [address] [place] [address] Care Team Providers Care Professional Employer Consultant Name Role Phone Stefanie Gibson Primary Care Provider [phone] Jonathan Wall MD Unavailable Rowena Kennedy MD Unavailable Taty Coates MD Unavailable [phone] Reason for Visit * Reason Onset Date Comments Hospital Follow-up 03/17/2024 Encounter Details Date Type Department Care Team (Late st Contact Info) Description 03/17/2024 Telephone [facility] MEDICINE [address] [place] [address] Stefanie Gibson FNP [address] [place], [place] [phone] Hospital Follow-up Social History Tobacco Use Types [...] from pt requesting a HDF appt. Hospital: [facility] Date of admission: 03/15 Discharge date: 03/17 Diagnosed: Kidney disease documented in this encounter Plan of Treatment Upcoming Encounters Date Type Department Care Team (Late st Contact Info) Description 01/12/2025 1:45 PM EDT Office Visit [facility] MED & PEDS [address] [place] [address] Stefanie Gibson FNP [address] [place] [address] documented as of this encounter Visit Diagnoses Not on filedocumented in this encounter Additional Health Concerns Assessment Noted Time PHQ-9 Depression Total Score: 8 02/27/20 24 3:30 PM EDT documented as of this encounter Care Teams Professional Employer Consultant Relationship Specialty Start Date End Date Stefanie Gibson FNP [address] [place] [address] PCP - General Family Medicine 04/26/22 Jonathan Wall MD [address] [place] [address] Nephrology 08/11/24 Rowena Kennedy MD [address] [place] [address] Urology 08/11/24 Taty Coates MD [address] [place] [address] Hematology and Oncology 08/11/24 anthony stewart Dryerman/WomanPlater Barrel 12/06/23 documented as of this encounter
--- OUTSIDE RECORDS SUMMARY | 2024-12-02 12:07 | XMS_ITS | Encounter Summary ---
Author Organization [employer] Address [address] [facility] [address] [place] [address] Care Team Providers Care Huller Operator Name Role Phone Stefanie Gibson FRANCHISE DEVELOPMENT MANAGER Primary Care Provider [phone] Jonathan Wall MD Unavailable Rowena Kennedy MD Unavailable Taty Coates MD Unavailable [phone] Reason for Visit * Reason Comments Med Refill Encounter Details Date Type Department Care Team ([facility] st Contact Info) Description 08/11/2024 Refill [facility] MED & PEDS [address] [place], [place] [phone] Stefanie Gibson FNP [address] [place], [place] [phone] Renal infarct ([facility]/HCC) Social History Tobacco Use Types Packs/Day Years Used Date Smoking Tobacco: Every Day Cigarettes 0.5 29.3 Started: 1994 Smokeless Tobacco: Never Comments:Boxes Alcohol [...] as of this encounter Plan of Treatment Upcoming Encounters Date Type Department Care Team (Late st Contact Info) Description 01/12/2025 1:45 PM EDT Office Visit [facility] MED & PEDS [address] [place] [address] Stefanie Gibson FNP [address] [place] [address] documented as of this encounter Visit Diagnoses Diagnosis Renal infarct (CMS/HCC) Vascular disorders of kidney documented in this encounter Additional Health Concerns Assessment Noted Time PHQ-9 Depression Total Score: 8 02/27/20 24 3:30 PM EDT documented as of this encounter Care Teams Huller Operator Relationship Specialty Start Date End Date Stefanie Gibson FNP [address] [place] [address] PCP - General Family Medicine 04/26/22 Jonathan Wall MD [address] [place] [address] Nephrology 08/11/24 Rowena Kennedy MD [address] [place] [address] Urology 08/11/24 Taty Coates MD [address] [place] [address] Hematology and Oncology 08/11/24 anthony stewart Fleet Maintenance ManagerBottle Packer 12/06/23 documented as of this encounter
--- OUTSIDE RECORDS SUMMARY | 2024-12-02 12:07 | XMS_ITS | Clinical Summary ---
Author Organization [employer] Address [address] [place] [address] Care Team Providers Care Cargo Services Coordinator Name Role Phone Stefanie Gibson SANDRA Primary Care Provider Jonathan Wall MD Unavailable Rowena Kennedy MD Unavailable Taty Coates MD Unavailable [phone] Allergies Active Allergy Reactions Criticality Noted [...] FOR SLEEP 30 tablet 04/24/20 23 Active cyclobenzaprine (Flexeril) 10 MG tablet TAKE [...] DAILY 90 capsule 5 08/11/20 24 Active cloNIDine (Catapres) 0.1 MG tablet Take 1 tablet (0.1 mg) by mouth 2 times daily. 60 tablet 3 08/11/20 24 Active allopurinol (Zyloprim) 300 MG tablet Take 1 tablet (300 mg) by mouth Once per day. 90 tablet 1 08/11/20 24 Active amLODIPine (Norvasc) 10 MG tablet TAKE 1 TABLET(10 MG) BY MOUTH DAILY 90 tablet 2 10/03/19 25 Active colchicine 0.6 MG tabletIndicatio ns:Gout, unspecified cause, unspecified chronicity, unspecified site TAKE 1 TABLET BY MOUTH THREE TIMES DAILY ON DAY#1 OF FLARE, FOLLOWED BY TWICE DAILY UNTIL 2 DAYS AFTER GOUT FLARE RESOLVES 21 tablet 2 11/06/19 25 Active lamoTRIgine (LaMICtal) 100 MG tablet TAKE 1 TABLET(100 MG) BY MOUTH TWICE DAILY 60 tablet 1 11/18/19 25 Active colchicine 0.6 MG tabletIndicatio ns:Gout, unspecified cause, unspecified chronicity, unspecified site Take 1 tablet by oral route 3 times per day on Day #1 of flare, followed by 2 times per day until 2 days AFTER gout flare resolves 21 tablet 2 11/19/19 24 025 Discontinued lamoTRIgine (LaMICtal) 100 MG tablet Take 1 tablet (100 mg) by mouth 2 times daily. 60 tablet 2 08/11/20 24 025 Discontinued Active Problems Problem Noted Date Diagnosed Date Gross hematuria 08/28/2024 Overview (08/28/2024): Following with [facility] - Dr. Rowena Green. Cystoscopy completed Jun 2024. No suspicious bladder lesions identified Urine cytology: Jul 2024 - atypical urothelial cells. Irregular nuclear contours and coarse chromatin. 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 Large accessory left renal artery which is intact Following with [facility] - Dr. Jonathan Wall. Referred to vascular as may need repeat imaging studies and consideration of renal artery stenting. Avoid NSAID. Cont good hydration and BP control. Candidate for ARB in future. Following with [facility]/Onc Dr. Coates. Last consult 04/22/24. suspect [...] renal artery which is intact Following with [facility] - Dr. Jonathan Wall. Last consult 04/14/24. Referred to vascular as may need repeat imaging studies and consideration of renal artery stenting. Avoid NSAID. Cont good hydration and BP control Following with [facility]/Onc Dr. Coates. Last consult 04/22/24. suspect [...] (04/28/2024 6:16 PM EDT): Incidental finding from [facility] Hospitalization February 2024: 3mm tunica cyst overlying the left testicle, small bilateral epididymal cysts, small left varicocele Currently asymptomatic, Follow up precautions Referral to Urology placed 04/28/24 Assessment & Plan (04/06/2024 12:41 PM EDT): Incidental finding from [facility] Hospitalization February 2024: 3mm tunica cyst [...] 06/10/2023 Overview (07/30/2023): ?? 11/08/22: CT at [facility] w/ following impression: Periliac/periportal lymph nodes and several retroperitoneal lymph nodes which was not definitely pathologically enlarged. Recommend clinical correlation in 3 months to re-assess (January 2023) ?? Repeat CT 04/05/23 at [facility]: Impression: Hepatic steatosis and hepatomegaly with [...] of Anxiety, Bipolar Disorder , and Trauma MH services including [facility] Psychotherapy psychopharmacology who presents for Bipolar and [...] Self Plan Patient [facility], Patient to engage in [...] established with therapist and med management through [facility]. Interested in switching to other clinic due [...] with therapist (Lalo) and med management through [facility]. Assessment & Plan (03/19/2023 9:17 AM EDT): [...] continued OP therapy and medication management with [facility]. At this time Eyal Rashid meets criteria for Visit Diagnoses: Problem List Items Addressed This Visit Other Bipolar depression (CMS/HCC) Patient ready to address current needs Yes Strengths- Eyal has a variety of coping mechanism and is supported by his partner. He is in the action stage of change. PLAN: 1. Follow up with [facility]: Not recommended for follow-up 2. Patient goal is to continue OP therapy and medication management with [facility] 3. Behavioral Recommendations a. Grounding exercises [...] of self harm Established with therapist - [facility]. Plan to establish with psychiatrist shortly [...] Items Addressed This Visit Other Bipolar depression ([facility]/HCC) Patient ready to address current needs Yes Strengths include- Eyal is the action stage of change and practices grounding exercises with his partner PLAN: 1. Follow up with [facility]: Recommended for follow-up: with PCP03/16/2023 2. Patient [...] Last flare: February 2024 while hospitalized at [facility] Encouraged low purine diet Assessment & Plan (11/20/2023 6:54 PM EDT): Continue allopurinol 300mg daily Previous flare subsided, sent in refill of colchicine PRN flares Encouraged low purine diet Sleep apnea 02/13/2023 Overview (06/10/2023): ?? Sleep study completed 04/03/23 at [facility]. Diagnosed with HELEN. Recommendation to start on CPAP 15cm H20 with a heated humidifier and AirTouch F20 full face mask size large. ?? DME request placed 04/18/23 Assessment & Plan (08/28/2023 4:08 PM EST): Continues with CPAP at night, noted improvement with use. Plan to use more consistently in 2023. Internal hemorrhoid 01/16/2023 Assessment & Plan (11/20/2023 6:52 PM EDT): Colonoscopy [facility] October 2022: Large internal hemorrhoids. Normal mucosa [...] (08/05/2023 9:16 PM EST): ? ? Colonoscopy [facility] October 2022: Large internal hemorrhoids. Normal mucosa [...] Plan (01/16/2023 8:35 AM EDT): ?? Colonoscopy [facility] October 2022: Large internal hemorrhoids. Normal mucosa [...] Continue APAP PRN Aug 2023: established with [facility]. Plan for diagnostic bilateral L3, [...] muscle spasms PRN Aug 2023: established with [facility]. Plan for diagnostic bilateral L3, [...] for muscle spasms PRN ?? Referral to [facility] on 07/30/23 Assessment & Plan (06/10/2023 10:47 AM EDT): ?? CT on the ED October 2022 showed degenerative changes of the lower thoracic spine and degenerative disc disease L4-L5 and L5-S1 ?? Referred to [facility] for further eval ?? Continue APAP PRN ?? Cont flexeril for muscle spasms PRN Assessment & Plan (01/16/2023 8:37 AM EDT): ?? CT on the ED October 2022 showed degenerative changes of the lower thoracic spine and degenerative disc disease L4-L5 and L5-S1 ?? Referral to [facility] for further eval ?? [...] Encounters Date Type Department Care Team Description 11/17/2024 Refill [facility] [address] [place] [address] Stefanie Gibson FNP 11/10/2024 Telephone [facility] [address] [place] [address] Stefanie Gibson FNP October11/07/2024 Population Health Risk Score [facility] Department [address] [place] [address] [phone] Provider, Population Health Generic 11/02/2024 Refill [facility] [address] [place] [address] Stefanie Gibson FNP Gout, unspecified cause, unspecified chronicity, unspecified site 09/27/2024 Refill [facility] [address] [place] [address] Stefanie Gibson FNP 09/26/2024 Orders Only [facility] External Provider, [facility] 09/18/2024 Telephone [facility] [address] [place] [address] Stefanie Gibson FNP TC: Med Refill Request 09/18/2024 Refill [facility] [address] [place] [address] Stefanie Gibson FNP Renal infarct ([facility]/HCC) 09/17/2024 Telephone [facility] [address] [place] [address] Stefanie Gibson FNP PCP Request X-Ray records from Last 3 Months Immunizations Name Administration [...] 08/11/2024 8:59 AM EST Plan of Treatment Upcoming Encounters Date Type Department Care Team (Late st Contact Info) Description 01/12/2025 1:45 PM EDT Office Visit [facility] [address] [place] [address] Stefanie Gibson, TRAVELING INVENTORY ASSOCIATE [address] [place] [address] Health Maintenance Due Date Last Done Comments HIV Screening 1985 Family Planning (PISQ) 2001 Hepatitis A Vaccines (1 of 2 - Risk 2-dose series) 2005 Hepatitis B Vaccines (2 of 3 - 19+ 3-dose series) 05/23/2024 04/25/2024 SDOH Screening 12/30/2024 12/31/2023 Influenza Vaccine (#1) 2025 , 08/16/2021, 08/16/2021, Additional history exists Postponed from 04/27/2024 (Patient Refused) Depression Screening 02/26/2025 02/27/2024, 02/27/20 24 Alcohol/Substance Use Screening 08/11/2025 08/11/2024 COVID-19 Vaccine [...] WO CONTRAST Routine 09/26/2024 8:07 AM EST HEPATITIS C AB W/REFL TO [...] EST Narrative 09/26/2024 9:05 AM EST ? [facility] ?[address] ?[place] [address] ? CT Scan Report ? Signed ? Patient: Rashid,Eyal O ?MR#: [id number] ? : 1985 ?Acct:[id number] ? Age/Sex: 39 / M ?ADM Date: /31/25 ? Loc: HO.CT ? Attending Dr: Johnathan Garcia MD ? Ordering Physician: Johnathan Garcia MD ?? Date of Service: 09/26/24 ?? Procedure(s): CT angio abdomen pelvis ?? Accession Number(s): [id number] ? cc: Johnathan Garcia MD; Stefanie Gibson ? Report Number: ?? [id number]: Total DLP = ??306.00 mGy-cm ?? EXAMINATION: [...] MD in OV> ?09/26/24 0902 ? DD/ 08 ? TD/TT: 09/26/24 0833 ? Crop Puller: ? Procedure Note [facility] - 09/26/[address] [address] [address] Scan Report Signed Patient: Eyal aRshid OMR#: [id number] : 1985Acct:[id number] Age/Sex: 39 / MADM Date: 09/26/24 Loc: HO.CT Attending Dr: Johnathan Garcia MD Ordering Physician: Johnathan Garcia MD Date of Service: 09/26/24 Procedure(s): CT angio abdomen pelvis Accession Number(s): [id number] cc: Johnathan Garcia MD; Stefanie Gibson [facility] Report Number: [id number]: Total DLP = 306.00 mGy-cm EXAMINATION: CT [...] by: Jonathan Tran MD 09/26/2024 09:02 AM [facility] Dictated By: Jonathan Tran MD Signed By: <Electronically signed by Jonathan Tran MD in OV> 09/26/24 0902 DD/ 0807 TD/TT: 09/26/24 0833 Crop Puller: [facility] External Provider IMG CT PROCEDURES Final Result * Hepatitis C Antibody with Reflex to HCV, RNA, Quantitative, Real-Time PCR (04/22/2024 3:12 PM EDT) Hepatitis C Antibody Nonreactive Nonreactive [facility] Comment:Antibodies to HCV no t detected; does not exclude early acuteHCV infection. Blood Venous blood specimen / Unknown 04/22/2024 3:12 PM EDT 04/22/2024 3:12 PM EDT Stefanie Gibson TRAVELING INVENTORY ASSOCIATE LAB BLOOD ORDERABLES Final Res ult [facility] [address] [place] [phone] * (ABNORMAL) Lipid Panel, Standard (04/22/2024 3:12 PM EDT) Triglycerides 140 <150 mg/dL [facility] Comment:Desirable Triglyceri de: less than 150 mg/dLBorderline High Triglyceride 150-199 mg/dLHigh Triglyceride: 200-499 mg/dLVery High Triglyceride: greater than or equal to 5OO mg/dL Cholesterol 179 <200 mg/dL [facility] Comment:Desirable Cholestero l: less than 200 mg/dLBorderline High Cholesterol: 200-239 mg/dLHigh Cholesterol: greater than 239 mg/dL LDL Cholesterol Calculated 111(H) <100 mg/dL [facility] Comment:Desirable LDL: less than 100 mg/dLNear Optimal/Above Optimal LDL: 110- 129 mg/dLBorderline High LDL: 130-159 mg/dLHigh LDL: 160-189 mg/dLVery High LDL: greater than or equal to 190 mg/dL HDL Cholesterol 40(L) >40 mg/dL [facility] Comment:Desirable HDL: great er than 40 mg/dL Note: This HDL assay may give artificially low results in patients with liver disease. 04/22/2024 3:12 PM EDT 04/22/2024 3:12 PM EDT us Generic External Data Provider LAB BLOOD ORDERAB LES Final Result [facility] [address] [place] [phone] from Last 3 Months or Most Recently Relevant to Health Maintenance Insurance [address] [place], [place] [address] Care Teams Cargo Services Coordinator Relationship Specialty Start Date End Date Stefanie Gibson FNP [address] [place] [address] PCP - General Family Medicine 04/26/22 Jonathan Wall MD [address] [place] [address] Nephrology 08/11/24 Rowena Kennedy MD [address] [place] [address] Urology 08/11/24 Taty Coates MD [address] [place] [address] Hematology and Oncology 08/11/24 anthony stewart Livestock RancherCasting Plug Assembler 12/06/23
--- OUTSIDE RECORDS SUMMARY | 2024-12-02 12:07 | XMS_ITS | Encounter Summary ---
Author Organization [employer] Address [address] [facility] [address] [place] [address] Care Team Providers Care Mold Cutting Machine Operator Name Role Phone Stefanie Gibson CHEMICAL TECHNICIAN Primary Care Provider [phone] Jonathan Wall MD Unavailable Rowena Kennedy MD Unavailable Taty Coates MD Unavailable [phone] Reason for Visit * Reason Comments Med Refill Encounter Details Date Type Department Care Team ([facility] st Contact Info) Description 08/22/2024 Refill [facility] [address] [place], [place] [phone] Stefanie Gibson FNP [address] [place], [place] [phone] Renal infarct ([facility]/HCC) Social History Tobacco Use Types Packs/Day Years [...] 01/12/2025 1:45 PM EDT Office Visit [facility] [address] [place] [address] Stefanie Gibson FNP [address] [place] [address] documented as of this encounter Visit Diagnoses Diagnosis Renal infarct (CMS/HCC) Vascular disorders of kidney documented in this encounter Additional Health Concerns Assessment Noted Time PHQ-9 Depression Total Score: 8 02/27/20 24 3:30 PM EDT documented as of this encounter Care Teams Mold Cutting Machine Operator Relationship Specialty Start Date End Date Stefanie Gibson FNP [address] [place] [phone] PCP - General Family Medicine 04/26/22 Jonathan Wall MD [address] [place] [address] Nephrology 08/11/24 Rowena Kennedy MD [address] [place] [address] Urology 08/11/24 Taty Coates MD [address] [place] [phone] Hematology and Oncology 08/11/24 anthony stewart Pipelines SupervisorSeparator Operator [employer]ats 12/06/23 documented as of this encounter
== END 2024-12-02 11:01 | disposition home or self-care (01) ==
LOC: HO.HKAS 10:16
PROVIDERS: PCP Registered Nurse; Visit Provider Internal Medicine Nephrology
DX: I10 Essential (primary) hypertension (principal); I77.73 Dissection of renal artery; N28.0 Ischemia and infarction of kidney
CPT/HCPCS: 99214

== ENCOUNTER → 2024-12-02 10:16 | Outpatient (BNVA) | payer MEDICAID, SELFPAY | PROVIDERS: PCP Registered Nurse; Visit Provider Internal Medicine Nephrology | DX: I10 Essential (primary) hypertension (principal); N28.0 Ischemia and infarction of kidney; I77.73 Dissection of renal artery; Z79.01 Long term (current) use of anticoagulants; Z79.899 Other long term (current) drug therapy | CPT/HCPCS: 99212 ==

== ENCOUNTER 2025-05-07 11:12 | Outpatient (AMB) | payer MEDICAID, SELFPAY ==
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
[2025-05-07 11:23] VITALS: BP 145/95; PULSE 100; O2SAT 97; BMI 36.6
--- OUTSIDE RECORDS SUMMARY | 2025-05-07 15:31 | XMS_ITS | Encounter Summary ---
Author Organization [employer] Address [address] [facility] [address] [place] [address] Care Team Providers Care Slitting Machine Feeder Name Role Phone Stefanie Gibson Primary Care Provider Jonathan Wall MD Unavailable Rowena Kennedy MD Unavailable Taty Coates MD Unavailable [phone] Gladis Nunez RN Unavailable [phone] Max Ambrosio Unavailable Gentry Patel RN Unavailable [phone] Reason for Visit * Reason Onset Date Comments Hospital Follow-up 03/17/2024 Encounter Details Date Type Department Care Team (Late st Contact Info) Description 03/17/2024 Telephone [facility] [address] [place] [address] Stefanie Gibson FNP [address] [place], [place] [id number] Hospital Follow-up Social History Tobacco Use Types [...] from pt requesting a HDF appt. Hospital: [facility] Date of admission: 03/15 Discharge date: 03/17 Diagnosed: Kidney disease documented in this encounter Plan of Treatment Not on file documented as of this encounter Visit Diagnoses Not on filedocumented in this encounter Additional Health Concerns Assessment Noted Time PHQ-9 Depression Total Score: 8 02/27/20 24 3:30 PM EDT documented as of this encounter Care Teams Slitting Machine Feeder Relationship Specialty Start Date End Date Stefanie Gibson FNP [address] [place] [id number] PCP - General Family Medicine 04/26/22 Jonathan Wall MD [address] [place] [address] Nephrology 08/11/24 Rowena Kennedy MD [address] [place] [address] Urology 08/11/24 Taty Coates MD [address] [place] [phone] Hematology and Oncology 08/11/24 Gladis Nunez, EVELIA [address] [place] [address] Registered Nurse Family Medicine 02/17/25 05/05/25 Max Ambrosio 02/17/25 Gentry Patel, RN [address] [place] [address] Registered Nurse Family Medicine 05/05/25 anthony stewart Social Media Marketing AnalystLaser Specialist 12/06/23 documented as of this encounter
--- OUTSIDE RECORDS SUMMARY | 2025-05-07 15:31 | XMS_ITS | Clinical Summary ---
Author Organization [facility] Address [address] [place] [address] Care Team Providers Care Air Crew Member Name Role Phone Unavailable Primary Care Provider Unavailabl e Source Comments PLEASE NOTE, if this patient is a minor, it may be UNLAWFUL to discuss sensitive information that is contained in these records (such as FAMILY PLANNING, MENTAL HEALTH or SUBSTANCE ABUSE) with the minor patient's parent or other person without the patient's specific authorization.[facility] Social History Tobacco Use Types Packs/Day Years Used Date Smoking Tobacco: Never Assessed Sex and Gender Information Value Date Recorded Sex Assigned at Male 02/26/2025 5:10 AM PDT Legal Sex Male 5:10 AM PDT Gender Identity Male 02/26/2025 5:10 AM PDT Sexual Orientation Not on file Plan of Treatment Upcoming Encounters Date Type Department Care Team (Late st Contact Info) Description 05/28/2025 1:00 PM EDT Behavioral Health Visit [facility] [address] [place] [id number] Jackie Schafer APRN [address] [place] [address] Health Maintenance Due Date Last Done Comments Anxiety Screening 1986 Diabetes Screening 1986 Tobacco Screening 1986 HIV Screening 2001 Hypertension Screening (#1) 01/26/2004 Imm-Hepatitis B (2 of 3 - 19 + 3-dose series) 05/23/2024 04/25/2024 Alcohol and Drug Screen 08/27/2024 Depression Annual Screen 08/27/2024 [id number] ( - season) 04/27/202510/20/2 021, 09/29/2020 Imm-Influenza (#1) 2025 05/21/2023, 1 10/17/2020, 06/10/2015, Additional history exists Imm-DTaP/Tdap/Td (3 - Td or Tdap) 11/18/2033 024, 03/18/2013 Hepatitis C Screening Completed 04/22/2024 Insurance [facility]
--- OUTSIDE RECORDS SUMMARY | 2025-05-07 15:31 | XMS_ITS | Clinical Summary ---
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 exclude early acuteHCV infection. Blood Venous blood specimen / Unknown 04/22/2024 3:12 PM EDT 04/22/2024 3:12 PM EDT us Stefanie Gibson NURSE INSTRUCTOR LAB BLOOD ORDERABLES Final Res ult [facility] [address] [place] [phone] * (ABNORMAL) Lipid Panel, Standard (04/22/2024 3:12 PM EDT) Triglycerides 140 <150 mg/dL [facility] Comment:Desirable Triglyceri de: less than 150 mg/dLBorderline High Triglyceride 150-199 mg/dLHigh Triglyceride: 200-499 mg/dLVery High Triglyceride: greater than or equal to 5OO mg/dL Cholesterol 179 <200 mg/dL [facility] Comment:Desirable Cholestero l: less than 200 mg/dLBorderline High Cholesterol: 200-239 mg/dLHigh Cholesterol: greater than 239 mg/dL LDL Cholesterol Calculated 111(H) <100 mg/dL [facility] Comment:Desirable LDL: less than 100 mg/dLNear Optimal/Above Optimal LDL: 110- 129 mg/dLBorderline High LDL: 130-159 mg/dLHigh LDL: 160-189 mg/dLVery High LDL: greater than or equal to 190 mg/dL HDL Cholesterol 40(L) >40 mg/dL [facility] Comment:Desirable HDL: great er than 40 mg/dL Note: This HDL assay may give artificially low results in patients with liver disease. 04/22/2024 3:12 PM EDT 04/22/2024 3:12 PM EDT us Generic External Data Provider LAB BLOOD ORDERAB LES Final Result [facility] [address] [place] [address] [phone] from Last 3 Months or Most Recently Relevant to Health Maintenance Insurance [facility] C3 Care Teams Electrical Assembly Supervisor Relationship Specialty Start Date End Date Stefanie Gibson FNP [address] [place] [address] PCP - General Family Medicine 04/26/22 Jonathan Wall MD [address] [place] [address] Nephrology 08/11/24 Rowena Kennedy MD [address] [place] [address] Urology 08/11/24 Taty Coates MD [address] [place] [address] Hematology and Oncology 08/11/24 Max Ambrosio 02/17/25 Gentry Patel, EVELIA [address] [place] [address] Registered Nurse Family Medicine 05/05/25 anthony stewart Clip Bolter And WrapperIce Bag Assembler 12/06/23
--- OUTSIDE RECORDS SUMMARY | 2025-05-07 15:31 | XMS_ITS | Encounter Summary ---
Author Organization [employer] Address [address] [facility] 7t [place] [address] Care Team Providers Care Private Pilot Name Role Phone Stefanie Gibson Primary Care Provider Jonathan Wall MD Unavailable Rowena Kennedy MD Unavailable Taty Coates MD Unavailable [phone] Gladis Nunez RN Unavailable [phone] Max Ambrosio Unavailable Gentry Patel RN Unavailable [phone] Reason for Visit * Reason Comments Med Refill Encounter Details Date Type Department Care Team ([facility] st Contact Info) Description 08/11/2024 Refill [facility] MED & PEDS [address] [place], [place] [phone] Stefanie Gibson FNP [address] [place], [place] [phone] Renal infarct ([facility]/HCC) Social History Tobacco Use Types Packs/Day Years [...] documented as of this encounter Care Teams Private Pilot Relationship Specialty Start Date End Date Stefanie Gibson FNP [address] [place] [address] PCP - General Family Medicine 04/26/22 Jonathan Wall MD [address] [place] [address] Nephrology 08/11/24 Rowena Kennedy MD [address] [place] [address] Urology 08/11/24 Taty Coates MD [address] [place] [address] Hematology and Oncology 08/11/24 Gladis Nunez, RN [address] [place] [address] Registered Nurse Family Medicine 02/17/25 05/05/25 Max Ambrosio 02/17/25 Gentry Patel, EVELIA [address] [place], [place] [id number] Registered Nurse Family Medicine 05/05/25 anthony stewart Pediatrician/Medical DoctorFood Counter Worker 12/06/23 documented as of this encounter
--- OUTSIDE RECORDS SUMMARY | 2025-05-07 15:31 | XMS_ITS | Encounter Summary ---
Author Organization [employer] Address [address] [facility] 7t [place] [address] Care Team Providers Care Real Estate Administrator Name Role Phone Stefanie Gibson Primary Care Provider Jonathan Wall MD Unavailable Rowena Kennedy MD Unavailable Taty Coates MD Unavailable [phone] Gladis Nunez RN Unavailable [phone] Max Ambrosio Unavailable Gentry Patel RN Unavailable [phone] Reason for Visit * Reason Comments Med Refill Encounter Details Date Type Department Care Team (Late st Contact Info) Description 02/25/2025 Refill [facility] CHC MED & PEDS [address] [place], [place] [phone] Stefanie Gibson FNP [address] [place] [address] Social History Tobacco Use Types Packs/Day Years [...] Recorded Patient Health Questionnaire-2 Score 4 02/19/2025 Sex and Gender Information Value Date Recorded [...] Assessment Noted Time PHQ-9 Depression Total Score: 13 025 1:16 PM EDT documented as of this encounter Care Teams Real Estate Administrator Relationship Specialty Start Date End Date Stefanie Gibson FNP [address] [place] [address] PCP - General Family Medicine 04/26/22 Jonathan Wall MD [address] [place] [address] Nephrology 08/11/24 Rowena Kennedy MD [address] [place] [address] Urology 08/11/24 Taty Coates MD [address] [place] [address] Hematology and Oncology 08/11/24 Gladis Nunez, EVELIA [address] [place] [address] Registered Nurse Family Medicine 02/17/25 05/05/25 Max Ambrosio 02/17/25 Gentry Patel, EVELIA [address] [place] [address] Registered Nurse Family Medicine 05/05/25 anthony stewart Hospital Administrative AssistantVat Packer 12/06/23 documented as of this encounter
--- OUTSIDE RECORDS SUMMARY | 2025-05-07 15:31 | XMS_ITS | Encounter Summary ---
Author Organization [employer] Address [address] [facility] 7t [place] [address] Care Team Providers Care Bail Bonding Agent Name Role Phone Stefanie Gibson Primary Care Provider Jonathan Wall MD Unavailable Rowena Kennedy MD Unavailable Taty Coates MD Unavailable [phone] Gladis Nunez RN Unavailable [phone] Max Ambrosio Unavailable Gentry Patel RN Unavailable [phone] Reason for Visit * Reason Comments Med Refill Encounter Details Date Type Department Care Team ([facility] st Contact Info) Description 08/22/2024 Refill [facility] CH[facility] MED & PEDS [address] [place], [place] [phone] Stefanie Gibson FNP [address] [place], [place] [phone] Renal infarct ([facility]/HCC) Social History Tobacco Use Types Packs/Day Years [...] documented as of this encounter Care Teams Bail Bonding Agent Relationship Specialty Start Date End Date Stefanie Gibson FNP [address] [place] [address] PCP - General Family Medicine 04/26/22 Jonathan Wall MD [address] [place] [address] Nephrology 08/11/24 Rowena Kennedy MD [address] [place] [address] Urology 08/11/24 Taty Coates MD [address] [place] [address] Hematology and Oncology 08/11/24 Gladis Nunez, RN [address] [place] [address] Registered Nurse Family Medicine 02/17/25 05/05/25 Max Ambrosio 02/17/25 Gentry Patel, EVELIA [address] [place], [place] [phone] Registered Nurse Family Medicine 05/05/25 anthony stewart Facilities Maintenance WorkerLine Supervisor 12/06/23 documented as of this encounter
--- OUTSIDE RECORDS SUMMARY | 2025-05-07 15:31 | XMS_ITS ---
Author Organization [employer] Address [address] [facility] 7t [place] [address] Care Team Providers Care Operating Theatre Technician Name Role Phone Stefanie Gibson Primary Care Provider [phone] Jonathan Wall MD Unavailable Rowena Kennedy MD Unavailable Taty Coates MD Unavailable [phone] Max Ambrosio Unavailable Gentry Patel RN Unavailable [phone] CHW Complex Status:Outreach In Progress (Enrolling) Start date:02/17/2025 Enrollment reason:ADT Feed Overview ED- Pt went to [facility] ED on 02/16/25. Case Team Name Relationship Phone Max Ambrosio(Responsible Staff) [phone] Continued Care and Services Coordination
--- OUTSIDE RECORDS SUMMARY | 2025-05-07 15:31 | XMS_ITS ---
Author Organization [employer] Address [address] [facility] 7t [place] [address] Care Team Providers Care Burlesque Dancer Name Role Phone Stefanie Gibson Primary Care Provider Jonathan Wall MD Unavailable Rowena Kennedy MD Unavailable Taty Coates MD Unavailable [phone] Max Ambrosio Unavailable Gentry Patel RN Unavailable [phone] CM Complex Status:Outreach In Progress (Enrolling) Start date:02/17/2025 Enrollment reason:ADT Feed Overview ED- Pt went to [facility] ED on 02/16/25. Case Team Name Relationship Phone Gentry Patel RN(Responsible Staff) Registered Kacey leroy [phone] Continued Care and Services Coordination
--- OUTSIDE RECORDS SUMMARY | 2025-05-07 15:31 | XMS_ITS | Encounter Summary ---
Author Organization [employer] Address [address] [facility] 7t [place] [address] Care Team Providers Care Civilian Technician Name Role Phone Stefanie Gibson Primary Care Provider [phone] Jonathan Wall MD Unavailable Rowena Kennedy MD Unavailable Taty Coates MD Unavailable [phone] Gladis Nunez RN Unavailable [phone] Max Ambrosio Unavailable Gentry Patel RN Unavailable [phone] Reason for Visit * Reason Comments Care Coordination [facility]/W Max marcos, Initial assessment RS Encounter Details Date Type Department Care Team (Latest Contact Info) Description 05/04/2025 Patient Outreach [facility] MEDICINE [address] [place] [address] Stefanie Gibson FNP [address] [place] [address] Care Coordination ([facility]/CHW Max Ambrosio, Initial assessment RS ) Social History Tobacco Use Types Packs/Day Years [...] AM EDT documented as of this encounter Progress Notes * Max Ambrosio - 05/04/2025 2:21 PM EDT CHW Max Ambrosio placed outbound call to patient in regards to rescheduling missed initial assessment appointment on 04/23/25 for Adult Complex Care program services. Patient's name and were confirmed. Initial Assessment appointment scheduled for 05/18/25 at 1:00 PM. CHW will set up an appointment reminder and will notify CM. CHW provided contact information of [phone] for any questions or concerns. documented in this encounter Plan of Treatment Not on file documented as of this encounter Visit Diagnoses Not on filedocumented in this encounter Additional Health Concerns Assessment Noted Time PHQ-9 Depression Total Score: 13 025 1:16 PM EDT documented as of this encounter Care Teams Civilian Technician Relationship Specialty Start Date End Date Stefanie Gibson FNP [address] [place] [address] PCP - General Family Medicine 04/26/22 Jonathan Wall MD [address] [place] [address] Nephrology 08/11/24 Rowena Kennedy MD [address] [facility] [address] [place] [address] Urology 08/11/24 Taty Coates MD [address] [place] [address] Hematology and Oncology 08/11/24 Gladis Nunez, RN [address] [place] [address] Registered Nurse Family Medicine 02/17/25 05/05/25 Max Ambrosio 02/17/25 Gentry Patel, RN [address] [place] [address] Registered Nurse Family Medicine 05/05/25 anthony stewart Shaper OperatorCoremaker Bench 12/06/23 documented as of this encounter
--- OUTSIDE RECORDS SUMMARY | 2025-05-07 15:32 | XMS_ITS | Clinical Summary ---
Author Organization [address] [place] [address] [place] [phone] Phone Care Team Providers Care Accident Investigator Name Role Phone Unavailable Primary Care Provider [...] mouth 2 (two) times a day. Active gabapentin (NEURONTIN) 300 mg capsule Take [...] total) 1 (one) time each day. Active bacitracin (bacitracin zinc) 500 unit/gram ointment Apply 1 Application topically 2 (two) times a day for 10 days. 120 g 5 04/07/20 25 acetaminophen (TYLENOL) 500 mg tablet Take 2 tablets (1,000 mg total) by mouth every 6 (six) hours if needed for mild pain for up to 10 days. 30 tablet 5 04/07/20 25 naproxen (NAPROSYN) 500 mg tablet Take 1 tablet (500 mg total) by mouth 2 (two) times a day with meals for 15 days. 30 tablet 5 04/12/20 25 Active Problems Problem Noted Date Diagnosed Date Laceration of right hand without foreign body Renal infarction ([facility] V24) 07/15/2024 Assessment & Plan (07/16/2024 1:09 PM EST): Continues to follow with nephrology Obesity 06/18/2024 Sinus tachycardia 06/18/2024 Assessment & Plan (07/16/2024 1:09 PM EST): 30-day monitor resulted as outlined above. No significant atrial or ventricular arrhythmias. Patient denies perception of palpitations. DVT (deep venous thrombosis) ([facility] V24, [facility] V28) 06/18/2024 Assessment & Plan (07/16/2024 1:08 PM EST): Continues on Xarelto. Hypokalemia 06/18/2024 Cigarette smoker 04/06/2024 Overview (03/06/2025): -Cigg/day: 20 -Pack year history: < 20 Encouraged smoking cessation resources Primary hypertension 04/06/2024 Severe anxiety 02/27/2024 Bipolar depression ([facility] V24, [facility] V28) Sleep apnea 02/13/2023 Overview (03/06/2025): [place] [facility] [place] with HELEN. Recommendation to start on CPAP 15cm H20 with a heated humidifier and AirTouch F20 full face mask size large. DME request placed 04/18/23 Encounters Date Type Department Care Team Description 03/27/2025 7:54 PM EDT - 03/28/2025 1:33 AM EDT Emergency [facility] Emergency [address] [place] [phone] Korey Carney MD Full thickness burn of multiple sites of right hand, initial encounter (Primary Dx) Discharge Disposition: Home or Self Care 03/24/2025 1:13 PM EDT - 03/24/2025 2:43 PM EDT [facility] Emergency [address] [place] [phone] Superficial burn of multiple digits of right hand including superficial burn of thumb, initial encounter (Primary Dx) Discharge Disposition: Home or Self Care 03/06/2025 11:30 AM EDT Office Visit Orthopedic [address] [phone] Vernell Lai MD Laceration of right hand without foreign body, subsequent encounter (Primary Dx) 02/24/2025 8:45 AM EDT Office Visit Orthopedic [address] [phone] Venus Connelly PA Laceration of right hand without foreign body, subsequent encounter (Primary Dx) 02/18/2025 10:30 AM EDT Office Visit Orthopedic [address] [phone] Venus Connelly PA Laceration of right hand without foreign body, initial encounter (Primary Dx) 02/16/2025 9:07 PM EDT - 02/17/2025 12:58 PM EDT Emergency [facility] Emergency [address] [place] [phone] Olayinka Bustamante MD Cauchon, Matthew C, DO Laceration of digital artery of hand (Primary Dx); Depression, unspecified depression type Discharge Disposition: Home or Self Care from Last 3 Months Immunizations Name Administration Dates Next Due Tdap Tetanus diptheria acell ular pertussis (Boostrix; Adacel) 7yo and older 02/16/2025 Surgical History Surgery Date Site/Laterality Comments GASTRIC BAND ADJUSTMENT Medical History Medical History Date Comments Deep vein thrombosis ([facility] V24, [facility] V28) Hypokalemia Sinus tachycardia Bipolar 1 disorder ([facility] V24, [facility] V28) Social History Tobacco Use Types Packs/Day Years [...] Sign Reading Time Taken Comments Blood Pressure 107/57 03/28/2025 12:16 AM EDT Pulse 92 03/28/2025 12:16 AM EDT Temperature 37.2 C (99 F) 03/28/2025 12:16 AM EDT Respiratory Rate 18 03/28/2025 12:16 AM EDT Oxygen Saturation 98% 03/28/2025 12:16 AM EDT Inhaled Oxygen Concentration - - Weight 104 kg (230 lb) 03/27/2025 8:08 PM EDT Height 172.7 cm (5' 8 ) 03/27/2025 8:08 PM EDT Body Mass Index 34.97 03/27/2025 8:08 PM EDT Plan of Treatment Health Maintenance Due Date Last Done Comments Hepatitis A Vaccines (1 of 2 - Risk 2-dose series) 2005 HIV Screening 07/25/2022 Social Influencers of Health Screening 07/25/2022 Hepatitis B Vaccines (2 of 3 - 19+ 3-dose series) 05/23/2024 04/25/2024 Depression Screening 08/27/2024 COVID-19 Vaccine (3 - 2024- season) 2025 10/20/2020, 09/29/2020 Influenza Vaccine (#1) 2025 , 08/16/2021, 06/10/2015, Additional history exists Hypertension/CHF/CAD Annual BMP Blood Test 02/16/2026 02/16/2025, 04/22/2024 Cholesterol Screening (Lipid Panel) 04/22/2029 04/22/2024 DTaP,Tdap,and Td Vaccines (5 - Td or Tdap) 02/16/2035 02/16/2025, 11/19/2023, 03/18/2013, Additional history exists Pneumococcal Vaccine: Pediatrics (0 to 5 Years) and At-Risk Patients (6 to 49 Years) Completed 11/19/2023 Hepatitis C Screening Completed [...] Procedure Name Priority Date/Time Associated Diagnosis Comments HC TREATMENT BURN Routine 04/07/2025 5:1 2 AM EDT WY DRESSINGS/DEBRIDEMENT PARTIAL THICKNESS GARCIA INI/SUBSEQ SMALL < 5% BSA Routine 04/07/2025 5:12 AM EDT HC TREATMENT BURN Routine 03/27/2025 9:0 0 PM EDT WY DRESSINGS/DEBRIDEMENT PARTIAL THICKNESS GARCIA INI/SUBSEQ SMALL < 5% BSA Routine 03/27/2025 9:00 PM EDT XR WRIST 3+ VIEWS RIGHT STAT 02/17/2025 7:37 AM EDT SALICYLATE LEVEL STAT 02/16/2025 10:3 6 PM EDT ACETAMINOPHEN LEVEL STAT 02/16/2025 1 0:36 PM EDT CBC WITH AUTO DIFFERENTIAL STAT 02/16/2025 10:36 PM EDT COMPREHENSIVE METABOLIC PANEL STAT 02/16/2025 10:36 PM EDT CBC AND DIFFERENTIAL STAT 02/16/2025 10:36 PM EDT ED LACERATION REPAIR Routine 02/16/2025 10:04 PM EDT WY REPAIR SUPERFICIAL WD SIMPLE SCALP/NECK/AX/GENT/VERNELL NK/EXT 2.6-7.5 CM Routine 02/16/2025 10:04 PM EDT ED LACERATION REPAIR Routine 02/16/2025 10:00 PM EDT WY REPAIR INTERMEDIATE WOUNDS NECK/HANDS/FEET/EXT GENITALIA <= 2.5 CM Routine 02/16/2025 10:00 PM EDT from Last 3 Months Results * WY DRESSINGS/DEBRIDEMENT PARTIAL THICKNESS GARCIA INI/SUBSEQ SMALL < 5% BSA, HC TREATMENT BURN (04/07/2025 5:12 AM EDT) Korey Song MD - 04/07/2025 5:12 AM EDT Korey Carney MD 04/07/2025 5:17 AM Burn Treatment Date/Time: 04/07/2025 5:12 AM Performed by: Korey Carney MD Authorized by: Korey Carney MD Consent: Consent obtained: Verbal Consent given by: Patient Risks discussed: Pain Alternatives discussed: Alternative treatment Sedation: Sedation type: None Procedure details: Total body burn percentage - superficial: 1 Total body burn percentage - partial/full: 1 Escharotomy performed: no Burn area 1 details: Burn depth: Full thickness (3rd) Affected area: Upper extremity Upper extremity location: R hand Debridement performed: yes Debridement mechanism: Scissors and forceps Indications for debridement: adherent debris, devitalized blisters, devitalized skin, ruptured blisters and serous drainage Wound base: [place] Wound treatment: Antimicrobial, antiseptic skin cleanser, saline wash and triple antibiotic ointment Dressing: Non-stick sterile dressing and fine mesh gauze Additional burn areas: 2 Burn area 2 details: Burn depth: Full thickness (3rd) Affected area: Upper extremity Upper extremity location: R hand Debridement performed: yes Debridement mechanism: Forceps and scissors Indications for debridement: adherent debris, devitalized blisters, devitalized skin, ruptured blisters and serous drainage Wound base: [place] Wound treatment: Antimicrobial, antiseptic skin cleanser, triple antibiotic ointment and saline wash Dressing: Non-stick sterile dressing and fine mesh gauze Burn area 3 details: Burn depth: Full thickness (3rd) Affected area: Upper extremity Upper extremity location: R hand Debridement performed: yes Debridement mechanism: Scissors and forceps Indications for debridement: adherent debris, devitalized blisters, devitalized skin, ruptured blisters and serous drainage Wound base: [place] Wound treatment: Antimicrobial, saline wash, antiseptic skin cleanser and triple antibiotic ointment Dressing: Non-stick sterile dressing and fine mesh gauze Post-procedure details: Procedure completion: Tolerated with difficulty us Korey Carney MD IN CLINIC/BEDSIDE ORDERABLES Fin al Result * WY DRESSINGS/DEBRIDEMENT PARTIAL THICKNESS GARCIA INI/SUBSEQ SMALL < 5% BSA, HC TREATMENT BURN (03/27/2025 9:00 PM EDT) Korey Song MD - 03/27/2025 9:00 PM EDT Korey Carney MD 04/07/2025 5:17 AM Burn Treatment Date/Time: 03/27/2025 9:00 PM Performed by: Korey Carney MD Authorized by: Korey Carney MD Consent: Consent obtained: Verbal Consent given by: Patient Risks discussed: Pain Alternatives discussed: No treatment Sedation: Sedation type: None Procedure details: Total body burn percentage - superficial: 1 Total body burn percentage - partial/full: 1 Escharotomy performed: no Burn area 1 details: Burn depth: Full thickness (3rd) Affected area: Upper extremity Upper extremity location: R hand Debridement performed: yes Debridement mechanism: Forceps and scissors Indications for debridement: adherent debris, devitalized blisters, devitalized skin and ruptured blisters Wound base: [place] Wound treatment: Antimicrobial, saline wash and triple antibiotic ointment Dressing: Non-stick sterile dressing Additional burn areas: 3 Burn area 2 details: Burn depth: Full thickness (3rd) Affected area: Upper extremity Upper extremity location: R hand Debridement performed: yes Debridement mechanism: Forceps and scissors Indications for debridement: adherent debris, devitalized blisters, devitalized skin and ruptured blisters Wound base: [place] Wound treatment: Antimicrobial, triple antibiotic ointment, saline wash and antiseptic skin cleanser Dressing: Non-stick sterile dressing Burn area 3 details: Burn depth: Full thickness (3rd) Affected area: Upper extremity Upper extremity location: R hand Debridement performed: yes Debridement mechanism: Scissors and forceps Indications for debridement: adherent debris, devitalized blisters, devitalized skin and ruptured blisters Wound base: [place] Wound treatment: Antiseptic skin cleanser, antimicrobial, saline wash and triple antibiotic ointment Dressing: Non-stick sterile dressing and fine mesh gauze Burn area 4 details: Burn depth: Full thickness (3rd) Affected area: Upper extremity Upper extremity location: R hand Debridement performed: yes Debridement mechanism: Forceps and scissors Indications for debridement: adherent debris, devitalized blisters, devitalized skin and ruptured blisters Wound treatment: Antimicrobial, saline wash, bacitracin, antiseptic skin cleanser and triple antibiotic ointment Dressing: Non-stick sterile dressing and fine mesh gauze Post-procedure details: Procedure completion: Tolerated well, no immediate complications us Korey Carney MD IN CLINIC/BEDSIDE ORDERABLES Fin al Result * XR Wrist 3+ Views Right (02/17/2025 7:37 AM EDT) Anatomical Region Laterality Modality Upper Extremities, Wrist Right Radiogr aphic Imaging 02/17/2025 8:13 AM EDT Impressions 02/17/2025 8:15 AM EDT Linear opacity projecting dorsal to the carpus on the lateral view. This could represent a foreign body or a bony fragment in the setting of a fracture. If this represents a fracture fragment, it appears corticated and may not be acute. If there is snuffbox tenderness and an appropriate trauma history, recommend immobilization with follow-up imaging in 10 days to exclude an occult scaphoid fracture. -------- FINAL REPORT -------- Dictated By: Chano Martinez Dictated Date: 02/17/2025 08:13 ET Assigned Physician: Chano Martinez Reviewed and Electronically Signed By: Chano Martinez Signed Date: 02/17/2025 08:15 ET Workstation ID: [id number] Transcribed By: Self Edit Transcribed Date: 02/17/2025 08:13 ET Narrative 02/17/2025 8:15 AM EDT PROCEDURE: Radiographs of the right wrist. HISTORY: OTHER foreign body. COMPARISON: None. FINDINGS: On last view of the series, there is a linear radiopacity dorsal to the carpus. Unclear whether this represents a soft tissue foreign body or a bony fragment. No fracture line is visible. Alignment is normal. Procedure Note Chano Martinez MD - 02/17/2025 PROCEDURE: Radiographs of the right wrist. HISTORY: OTHER foreign body. COMPARISON: None. FINDINGS: On last view of the series, there is a linear radiopacity dorsal to thecarpus. Unclear whether this represents a soft tissue foreign body or abony fragment. No fracture line is visible. Alignment is normal. IMPRESSION: Linear opacity projecting dorsal to the carpus on the lateral view. Thiscould represent a foreign body or a bony fragment in the setting of afracture. If this represents a fracture fragment, it appears corticatedand may not be acute. If there is snuffbox tenderness and an appropriate trauma history,recommend immobilization with follow-up imaging in 10 days to exclude anoccult scaphoid fracture. -------- FINAL REPORT -------- Dictated By: Chano Martinez Dictated Date: 02/17/2025 08:13 ET Assigned Physician: Chano Martinez Reviewed and Electronically Signed By: Chano Martinez Signed Date: 02/17/2025 08:15 ET Workstation ID: [id number] Transcribed By: Self Edit Transcribed Date: 02/17/2025 08:13 ET us Olayinka Bustamante MD IMG XR PROCEDURES Final Res ult * (ABNORMAL) CBC auto differential (02/16/2025 10:36 PM EDT) WBC 8.0 4.8 - 10.8 K/[facility] HEMETOLOGY METHOD 02/16/2025 11:02 PM EDT [facility] RBC 4.10(L) 4.50 - 5.50 M/[facility] LAB HEMETOLOGY METHOD 02/16/2025 11:02 PM EDT [facility] Hemoglobin 13.1(L) 13.5 - 17.5 g/dL LAB HEMETOLOGY METHOD 02/16/2025 11:02 PM [facility] Hematocrit 38.1(L) 42.0 - 54.0 % LAB HEMETOLOGY METHOD 02/16/2025 11:02 PM [facility] MCV 92.3 79.0 - 98.0 FL LAB HEMETOLOGY METHOD 02/16/2025 11:02 PM [facility] MCH 31.7 27.0 - 32.0 pcg LAB HEMETOLOGY METHOD 02/16/2025 11:02 PM [facility] MCHC 34.4 32.0 - 37.0 g/dL LAB HEMETOLOGY METHOD 02/16/2025 11:02 [facility] RDW 14.1 11.0 - 15.0 % LAB HEMETOLOGY METHOD 02/16/2025 11:02 [facility] Platelets 317 130 - 400 K/mcL LAB HEMETOLOGY METHOD 02/16/2025 11:02 [facility] MPV 8.7 7.0 - 11.0 [place] LAB HEMETOLOGY METHOD 02/16/2025 11:02 [facility] NRBC 0.0 <1.0 % LAB HEMETOLOGY METHOD 02/16/2025 11:02 [facility] NRBC Absolute 0.00 <0.10 K/mcL LAB HEMETOLOGY METHOD 02/16/2025 11:02 [facility] Neutrophils Relative 64.0 % LAB HEMETOLOGY METHOD 02/16/2025 11:02 [facility] Lymphocytes Relative 25.4 % LAB HEMETOLOGY METHOD 02/16/2025 11:02 [facility] Monocytes Relative 9.2 % LAB HEMETOLOGY METHOD 02/16/2025 11:02 PM EDT [facility] Eosinophils Relative 0.5 % LAB HEMETOLOGY METHOD 02/16/2025 11:02 PM EDT [facility] Basophils Relative 0.5 % LAB HEMETOLOGY METHOD 02/16/2025 11:02 PM [facility] Immature Granulocytes Relative 0.4 % LAB HEMETOLOGY METHOD 02/16/2025 11:02 PM EDT [facility] Neutrophils Absolute 5.15 1.50 - 7.00 K/mcL LAB [facility]OLOGY [facility] Lymphocytes Absolute 2.04 1.00 - 5.00 K/mcL LAB HEMETOLOGY METHOD 02/16/2025 11:02 PM [facility] Monocytes Absolute 0.74 0.20 - 1.00 K/mcL LAB HEMETOLOGY METHOD 02/16/2025 11:02 PM [facility] Eosinophils Absolute 0.04 0.00 - 0.50 K/mcL LAB HEMETOLOGY METHOD 02/16/2025 11:02 PM T [facility] Basophils Absolute 0.04 0.00 - 0.20 K/mcL LAB HEMETOLOGY METHOD 02/16/2025 11:02 PM [facility] Immature Granulocytes Absolute 0.03 0.00 - 0.03 K/mcL LAB HEMETOLOGY METHOD 02/16/2025 11:02 PM T [facility] Blood Venous blood specimen / Unknown Venipuncture / Unknown 02/16/2025 10:36 PM EDT 02/16/2025 10:58 PM EDT us Olayinka Bustamante MD LAB BLOOD ORDERABLES Final Result [facility] [address] [place] [address], [place] [phone] * (ABNORMAL) Acetaminophen level (02/16/2025 10:36 PM EDT) Acetaminophen Level 6.6(L) 10.0 - 30.0 mcg/mL LAB CHEMISTRY METHOD 02/16/2025 11:30 PM EDT [facility] Blood Venous blood specimen / Unknown Venipuncture / Unknown 02/16/2025 10:36 PM EDT 02/16/2025 10:58 PM EDT Olayinka Bustamante MD LAB BLOOD ORDERABLES Final Result Performing Organization Address [facility]/ZIP Co de Phone Number [facility] [address] [place] [address], [place] [phone] * Salicylate level (02/16/2025 10:36 PM EDT) Salicylate Level 2.2 2.0 - 29.0 mg/dL LAB CHEMISTRY METHOD 02/16/2025 11:30 PM EDT [facility] Blood Venous blood specimen / Unknown Venipuncture / Unknown 02/16/2025 10:36 PM EDT 02/16/2025 10:58 PM EDT Olayinka Bustamante MD LAB BLOOD ORDERABLES Final Result Performing Organization Address City/[facility]/ZIP Co de Phone Number [facility] [address] [place] [address], [place] [phone] * (ABNORMAL) Comprehensive metabolic panel (02/16/2025 10:36 PM EDT) Sodium 141 133 - 145 mmol/L LAB CHEMISTRY METHOD 02/16/2025 11:30 PM EDT [facility] Potassium 3.4(L) 3.5 - 5.5 mmol/L LAB CHEMISTRY METHOD 02/16/2025 11:30 PM EDT [facility] Chloride 109 96 - 110 mmol/L LAB CHEMISTRY METHOD 02/16/2025 11:30 PM [facility] CO2 22 21 - 32 mmol/L LAB CHEMISTRY METHOD 02/16/2025 11:30 PM [facility] Anion Gap 10 3 - 11 LAB CHEMISTRY METHOD 02/16/2025 11:30 PM [facility] Glucose 117(H) 70 - 100 mg/dL LAB CHEMISTRY METHOD 02/16/2025 11:30 PM [facility] BUN 11 5 - 25 mg/dL LAB CHEMISTRY METHOD 02/16/2025 11:30 PM [facility] Creatinine 1.10 0.70 - 1.30 mg/dL LAB CHEMISTRY METHOD 02/16/2025 11:30 PM [facility] eGFR 88 >=60 mL/min/1. 73m2 LAB CHEMISTRY METHOD 02/16/2025 11:30 PM [facility] Comment:Calculation based on the Chronic Kidney Disease Epidemiology Collaboration (CKD-EPI) equation refit without adjustment for race. BUN/Creatinine Ratio 10.0 LAB CHEMISTRY METHOD 02/16/2025 11:30 PM [facility] Calcium 8.3(L) 8.5 - 10.5 mg/dL LAB CHEMISTRY METHOD 02/16/2025 11:30 PM [facility] AST (SGOT) 29 10 - 42 unit/L LAB CHEMISTRY METHOD 02/16/2025 11:30 PM [facility] ALT (SGPT) 33 10 - 60 unit/L LAB CHEMISTRY METHOD 02/16/2025 11:30 PM [facility] Alkaline Phosphatase 79 42 - 121 unit/L LAB CHEMISTRY METHOD 02/16/2025 11:30 PM [facility] Total Protein 7.1 6.0 - 8.0 g/dL LAB CHEMISTRY METHOD 02/16/2025 11:30 PM [facility] Albumin 3.7 3.2 - 5.0 g/dL LAB CHEMISTRY METHOD 02/16/2025 11:30 PM EDT [facility] Total Bilirubin 0.8 0.0 - 1.4 mg/dL LAB CHEMISTRY METHOD 02/16/2025 11:30 PM EDT [facility] Blood Venous blood specimen / Unknown Venipuncture / Unknown 02/16/2025 10:36 PM EDT 02/16/2025 10:58 PM EDT Olayinka Bustamante MD LAB BLOOD ORDERABLES Final Result [facility] [address] [place] [address], [place] [phone] * W[place] REPAIR SUPERFICIAL WD SIMPLE SCALP/NECK/AX/GENT/TRUNK/EXT 2.6-7.5 CM, HC REPAIR WOUND LEVEL 1 (02/16/2025 10:04 PM EDT) Narrative Olayinka Bustamante MD - 02/16/2025 10:04 PM EDT Olayinka Bustamante MD 03/10/2025 6:00 PM Laceration Repair Date/Time: 02/16/2025 10:04 PM Performed by: Olayinka Bustamante MD Authorized by: Olayinka Bustamante MD Consent: Consent obtained: Verbal Laceration details: Location: Hand Hand location: R palm Length (cm): 4.5 Depth (mm): 7 Pre-procedure details: Preparation: Patient was prepped and draped in usual sterile fashion Exploration: Wound extent: fascia violated Wound extent: no muscle damage noted, no nerve damage noted, no tendon damage noted and no vascular damage noted Treatment: Area cleansed with: Povidone-iodine and saline Amount of cleaning: Extensive Irrigation solution: Sterile saline Irrigation volume: 100 Irrigation method: Pressure wash Debridement: None Skin repair: Repair method: Sutures Suture size: 3-0 Suture material: Prolene Suture technique: Simple interrupted Number of sutures: 5 Approximation: Approximation: Close Repair type: Repair type: Simple Post-procedure details: Dressing: Sterile dressing us Olayinka Bustamante MD IN CLINIC/BEDSIDE ORDERABLE S Edited Result - Final * [place] REPAIR INTERMEDIATE WOUNDS NECK/HANDS/FEET/EXT GENITALIA <= 2.5 CM, HC REPAIR WOUND LEVEL 1 (02/16/2025 10:00 PM EDT) Olayinka Appiah MD - 02/16/2025 10:00 PM EDT Olayinka Bustamante MD 03/10/2025 6:00 PM Laceration Repair Date/Time: 02/16/2025 10:00 PM Performed by: Olayinka Bustamante MD Authorized by: Olayinka Bustamante MD Consent: Consent obtained: Verbal Risks discussed: Pain, infection, poor wound healing and nerve damage Alternatives discussed: No treatment [place] protocol: Patient identity confirmed: Verbally with patient Anesthesia: Anesthesia method: Local infiltration Local anesthetic: Lidocaine 1% WITH epi Laceration details: Location: Hand Hand location: R hand, dorsum Length (cm): 2.5 Depth (mm): 10 Pre-procedure details: Patient was prepped and draped in usual sterile fashion: emergent active bleeding prepped with betadyne. Exploration: Hemostasis achieved with: Direct pressure and tourniquet Wound extent: fascia violated, nerve damage and vascular damage Contaminated: no Treatment: Area cleansed with: Povidone-iodine Layers/structures repaired: Muscle belly Muscle belly: Suture size: 3-0 Suture material: Vicryl Suture technique: Simple interrupted Number of sutures: 2 Skin repair: Repair method: Sutures Suture size: 3-0 Suture material: Prolene Suture technique: Simple interrupted Number of sutures: 4 Approximation: Approximation: Close Repair type: Repair type: Intermediate Post-procedure details: Dressing: Sterile dressing Procedure completion: Tolerated Comments: Semi urgent due to arteriolar bleeding full irrigation unable to be performed. Olayinka Bustamante MD IN CLINIC/BEDSIDE ORDERABLE S Edited Result - Final from Last 3 Months Insurance MEDICA[place] - [place]
== END 2025-05-07 12:03 | disposition home or self-care (01) ==
LOC: HO.PMC 11:13
PROVIDERS: PCP Registered Nurse; Visit Provider Nurse Practitioner Family
DX: M51.369 Other intervertebral disc degeneration, lumbar region without mention of lumbar back pain or lower extremity pain (principal); M47.817 Spondylosis without myelopathy or radiculopathy, lumbosacral region; G89.4 Chronic pain syndrome; M54.51 Vertebrogenic low back pain
CPT/HCPCS: 99204

== ENCOUNTER → 2025-05-07 11:12 | Outpatient (BNVA) | payer MEDICAID, SELFPAY | PROVIDERS: PCP Registered Nurse; Visit Provider Nurse Practitioner Family | DX: M51.369 Other intervertebral disc degeneration, lumbar region without mention of lumbar back pain or lower extremity pain (principal); M47.817 Spondylosis without myelopathy or radiculopathy, lumbosacral region; M54.51 Vertebrogenic low back pain; G89.4 Chronic pain syndrome | CPT/HCPCS: 99212 ==

== ENCOUNTER 2025-05-27 18:48 | Outpatient (REF) | payer MEDICAID, SELFPAY ==
--- NOTE | ~2025-05-27 | MR_ITS ---
CLINICAL HISTORY: M51.369 - Other intervertebral disc degeneration, lumbar region without ... MR lumbar spine without gadolinium Comparison: None Findings: No scoliosis or spondylolisthesis. No acute fracture or pathologic bone lesion. Cauda equina and conus medullaris within normal limits. Conus medullaris terminates at mid L1. T12-L1. Mild disc space narrowing and disc degeneration. No disc herniation, central canal or neural foraminal stenosis. L1-L2: Mild disc space narrowing and disc degeneration. No disc herniation, central canal or neural foraminal stenosis. L2-L3 common mild disc space narrowing and disc degeneration. No disc herniation, central canal or neural foraminal stenosis. L3-L4. Mild disc space narrowing and disc degeneration. No significant disc herniation or central canal stenosis. Neural foramina are patent bilaterally. L4-L5: Moderate disc space narrowing, disc desiccation and disc degeneration. Mild broad-based disc herniation with suggestion of subtle shallow superimposed central zone disc protrusion. Spinal canal is patent. Minimal narrowing of bilateral neural foramina. Mild bilateral facet arthropathy. L5-S1: Moderate disc space narrowing, disc degeneration and disc desiccation. Mild broad-based disc herniation with subtle left paracentral disc protrusion. No significant spinal canal stenosis. Neural foramina are patent bilaterally. Facet arthropathy. Paraspinous musculature intact. IMPRESSION: 1. Mild multilevel lumbar spine arthropathy as detailed above most conspicuous at L4-L5 and L5-S1. No evidence to suggest significant spinal canal or neural foraminal stenosis at any level. 2. Additional findings as above. This document has been electronically signed by: Tor Sparrow MD on 05/27/2025 20:30:56
--- OUTSIDE RECORDS SUMMARY | 2025-05-27 18:53 | XMS_ITS | Encounter Summary ---
Author Organization [employer] Address [address] [facility] 7t [place] [address] Care Team Providers Care Construction Superintendent Name Role Phone Stefanie Gibson Primary Care Provider Jonathan Wall MD Unavailable Rowena Kennedy MD Unavailable Taty Coates MD Unavailable [phone] Gladis Nunez RN Unavailable Max Ambrosio Unavailable Gentry Patel RN Unavailable [phone] Reason for Visit * Reason Comments Med Refill Encounter Details Date Type Department Care Team ([facility] st Contact Info) Description 08/22/2024 Refill [facility] MED & PEDS [address] [place], [place] [phone] Stefanie Gibson FNP [address] [place], [place] [phone] Renal infarct ([facility]/HCC) Social History Tobacco Use Types Packs/Day Years [...] this encounter Visit Diagnoses Diagnosis Renal infarct Vascular disorders of kidney documented in this encounter Additional Health Concerns Assessment Noted Time PHQ-9 Depression Total Score: 8 02/27/20 24 3:30 PM EDT documented as of this encounter Care Teams Construction Superintendent Relationship Specialty Start Date End Date Stefanie Gibson FNP [address] [place] [address] PCP - General Family Medicine 04/26/22 Jonathan Wall MD [address] [place] [address] Nephrology 08/11/24 Rowean Kennedy MD [address] [place] [address] Urology 08/11/24 Taty Coates MD [address] [place] [address] Hematology and Oncology 08/11/24 Gladis Nunez, RN [address] [place] [address] Registered Nurse Family Medicine 02/17/25 05/05/25 Max Ambrosio 02/17/25 Gentry Patel, EVELIA [address] [place] [address] Registered Nurse Family Medicine 05/05/25 anthony stewart Hat Forming Machine FeederPictures Editor 12/06/23 documented as of this encounter
--- OUTSIDE RECORDS SUMMARY | 2025-05-27 18:53 | XMS_ITS ---
Author Organization [employer] Address 75 [facility] 7t [place] [address] Care Team Providers Care Masonry Contractor Administrator Name Role Phone Stefanie Gibson Primary Care Provider [phone] Jonathan Wall MD Unavailable Rowena Kennedy MD Unavailable Taty Coates MD Unavailable [phone] Max Ambrosio Unavailable Gentry Patel RN Unavailable [phone] CM Complex Status:Outreach In Progress (Enrolling) Start date:02/17/2025 Enrollment reason:ADT Feed Overview ED- Pt went to [facility] ED on 02/16/25. Case Team Name Relationship Phone Gentry Patel RN(Responsible Staff) Registered Kacey leroy [phone] Continued Care and Services Coordination
--- OUTSIDE RECORDS SUMMARY | 2025-05-27 18:53 | XMS_ITS | Clinical Summary ---
Author Organization [facility] Address [address] [place] [address] Care Team Providers Care Plastic Boat Patcher Name Role Phone Unavailable Primary Care Provider [...] Upcoming Encounters Date Type Department Care Team ([facility] st Contact Info) Description 05/28/2025 1:00 PM EDT Behavioral Health Visit [facility] [address] [place] [phone] Jackie Schafer APRN [address] [place] [address] Health Maintenance Due Date Last Done Comments Anxiety Screening 1986 Diabetes Screening 1986 Tobacco Screening 1986 HIV Screening 2001 Hypertension Screening (#1) 01/26/2004 Imm-HPV (1 - 3-dose SCDM series) 2013 Imm-Hepatitis B (2 of 3 - 19 + 3-dose series) 05/23/2024 04/25/2024 Alcohol and Drug Screen 08/27/2024 Depression Annual Screen 08/27/2024 Sse-QDCOC-03 ( season) 04/27/202510/20/ 021, 09/29/2020 Imm-Influenza (#1) 2025 05/21/2023, 1 10/17/2020, 06/10/2015, Additional history exists Imm-DTaP/Tdap/Td (3 - Td or Tdap) 11/18/2033 024, 03/18/2013 Hepatitis C Screening Completed 04/22/2024 Insurance [facility]
--- OUTSIDE RECORDS SUMMARY | 2025-05-27 18:53 | XMS_ITS | Clinical Summary ---
Author Organization [address] [place] [address] [place] [phone] Phone Care Team Providers Care Supervisor Treating And Pumping Name Role Phone Unavailable Primary Care Provider [...] right hand without foreign body Renal infarction (CMS/HCC V24) 07/15/2024 Assessment & Plan (07/16/2024 1:09 PM EST): Continues to follow with nephrology Obesity 06/18/2024 Sinus tachycardia 06/18/2024 Assessment & Plan (07/16/2024 1:09 PM EST): 30-day monitor resulted as outlined above. No significant atrial or ventricular arrhythmias. Patient denies perception of palpitations. DVT (deep venous thrombosis) ([facility]/HCC V24, CMS/H CC V28) 06/18/2024 Assessment & Plan (07/16/2024 1:08 PM EST): Continues on Xarelto. Hypokalemia 06/18/2024 Cigarette smoker 04/06/2024 Overview (03/06/2025): -Cigg/day: 20 -Pack year history: < 20 Encouraged smoking cessation resources Primary hypertension 04/06/2024 Severe anxiety 02/27/2024 Bipolar depression ([facility] V24, [facility]/HCC V28) Sleep apnea 02/13/2023 Overview (03/06/2025): Sleep study completed 04/03/23 at [facility]. Diagnosed with HELEN. Recommendation to start on CPAP 15cm H20 with a heated humidifier and AirTouch F20 full face mask size large. DME request placed 04/18/23 Encounters Date Type Department Care Team Description 03/27/2025 7:54 PM EDT - 03/28/2025 1:33 AM EDT Emergency [facility] Emergency [address] [place] [phone] Korey Carney MD Full thickness burn of multiple sites of right hand, initial encounter (Primary Dx) Discharge Disposition: Home or Self Care 03/24/2025 1:13 PM EDT - 03/24/2025 2:43 PM EDT [facility] Emergency [address] [place] [address] Superficial burn of multiple digits of right hand including superficial burn of thumb, initial encounter (Primary Dx) Discharge Disposition: Home or Self Care 03/06/2025 11:30 AM EDT Office Visit Orthopedic Surgery - [address] [place] [phone] Vernell Lai MD Laceration of right hand without foreign body, subsequent encounter (Primary Dx) 02/24/2025 8:45 AM EDT Office Visit Orthopedic Surgery - [place] [address] [facility] [address] [place] [phone] Venus Connelly PA Laceration of right hand without foreign body, subsequent encounter (Primary Dx) from Last 3 Months Immunizations Immunization Administration Dates Next Due Tdap Tetanus diptheria acell ular pertussis (Boostrix; Adacel) 7yo and older 02/16/2025 Surgical History Surgery Date Site/Laterality Comments GASTRIC BAND ADJUSTMENT Medical History Medical History Date Comments Deep vein thrombosis ([facility] V24, [facility] V28) Hypokalemia Sinus tachycardia Bipolar 1 disorder ([facility] V24, [facility] V28) Social History Tobacco Use Types Packs/Day [...] of 2 - Risk 2-dose series) 2005 HPV Vaccines (1 - 3-dose SCDM series) 2013 HIV Screening 07/25/2022 Social Influencers of Health [...] 02/16/2035 02/16/2025, 11/19/2023, 03/18/2013, Additional history exists RSV Immunization Adult Patients (1 - 1-dose 75+ series) 2061 Pneumococcal [...] BURN Routine 04/07/2025 5:1 2 AM EDT PA DRESSINGS/DEBRIDEMENT PARTIAL THICKNESS GARCIA INI/SUBSEQ SMALL < 5% BSA Routine 04/07/2025 5:12 AM EDT HC TREATMENT BURN Routine 03/27/2025 9:0 0 PM EDT PA DRESSINGS/DEBRIDEMENT PARTIAL THICKNESS GARCIA INI/SUBSEQ SMALL < 5% BSA Routine 03/27/2025 9:00 PM EDT COMPREHENSIVE METABOLIC PANEL STAT 02/16/2025 10:36 PM EDT from Last 3 Months or Most Recently Relevant to Health Maintenance Results * PA DRESSINGS/DEBRIDEMENT PARTIAL THICKNESS GARCIA INI/SUBSEQ SMALL < [...] ruptured blisters and serous drainage Wound base: [place] Wound treatment: Antimicrobial, antiseptic skin cleanser, saline [...] ruptured blisters and serous drainage Wound base: [place] Wound treatment: Antimicrobial, antiseptic skin cleanser, triple antibiotic ointment and saline wash Dressing: Non-stick sterile dressing and fine mesh gauze Burn area 3 details: Burn depth: Full thickness (3rd) Affected area: Upper extremity Upper extremity location: R hand Debridement performed: yes Debridement mechanism: Scissors and forceps Indications for debridement: adherent debris, devitalized blisters, devitalized skin, ruptured blisters and serous drainage Wound base: [place] Wound treatment: Antimicrobial, saline wash, antiseptic skin cleanser and triple antibiotic ointment Dressing: Non-stick sterile dressing and fine mesh gauze Post-procedure details: Procedure completion: Tolerated with difficulty us Korey Carney MD IN CLINIC/BEDSIDE ORDERABLES Fin al Result * PA DRESSINGS/DEBRIDEMENT PARTIAL THICKNESS GARCIA INI/SUBSEQ SMALL < 5% BSA, HC TREATMENT BURN (03/27/2025 9:00 PM EDT) Narrative Korey Carney MD - 03/27/2025 9:00 PM EDT Korey [...] devitalized skin and ruptured blisters Wound base: [place] Wound treatment: Antimicrobial, saline wash and triple antibiotic ointment Dressing: Non-stick sterile dressing Additional burn areas: 3 Burn area 2 details: Burn depth: Full thickness (3rd) Affected area: Upper extremity Upper extremity location: R hand Debridement performed: yes Debridement mechanism: Forceps and scissors Indications for debridement: adherent debris, devitalized blisters, devitalized skin and ruptured blisters Wound base: [place] Wound treatment: Antimicrobial, triple antibiotic ointment, saline wash and antiseptic skin cleanser Dressing: Non-stick sterile dressing Burn area 3 details: Burn depth: Full thickness (3rd) Affected area: Upper extremity Upper extremity location: R hand Debridement performed: yes Debridement mechanism: Scissors and forceps Indications for debridement: adherent debris, devitalized blisters, devitalized skin and ruptured blisters Wound base: [place] Wound treatment: Antiseptic skin cleanser, antimicrobial, saline [...] Procedure completion: Tolerated well, no immediate complications Korey Carney MD IN CLINIC/BEDSIDE ORDERABLES [facility] al Result * (ABNORMAL) Comprehensive metabolic panel (02/16/2025 10:36 PM EDT) Sodium 141 133 - 145 mmol/L LAB CHEMISTRY METHOD 02/16/2025 11:30 PM [facility] Potassium 3.4(L) 3.5 - 5.5 mmol/L LAB CHEMISTRY METHOD 02/16/2025 11:30 PM [facility] Chloride 109 96 - 110 mmol/L LAB CHEMISTRY METHOD 02/16/2025 11:30 PM [facility] CO2 22 21 - 32 mmol/L LAB CHEMISTRY METHOD 02/16/2025 11:30 PM [facility] Anion Gap 10 3 - 11 LAB CHEMISTRY METHOD 02/16/2025 11:30 PM [facility] Glucose 117(H) 70 - 100 mg/dL LAB CHEMISTRY METHOD 02/16/2025 11:30 PM [facility] BUN 11 5 - 25 mg/dL LAB CHEMISTRY METHOD 02/16/2025 11:30 PM [facility] Creatinine 1.10 0.70 - 1.30 mg/dL LAB CHEMISTRY METHOD 02/16/2025 11:30 PM [facility] eGFR 88 >=60 mL/min/1. 73m2 LAB CHEMISTRY METHOD 02/16/2025 11:30 PM [facility] Comment:Calculation based on the Chronic Kidney Disease Epidemiology Collaboration (CKD-EPI) equation refit without adjustment for race. BUN/Creatinine Ratio 10.0 LAB CHEMISTRY METHOD 02/16/2025 11:30 PM EDT [facility] Calcium 8.3(L) 8.5 - 10.5 mg/dL LAB CHEMISTRY METHOD [facility] ([facility]OT[facility] 29 10 - 42 unit/L LAB CHEMISTRY METHOD 02/16/2025 11:30 PM T [facility] ALT (SGPT) 33 10 - 60 unit/L LAB CHEMISTRY METHOD 02/16/2025 11:30 PM [facility] Alkaline Phosphatase 79 42 - 121 unit/L LAB CHEMISTRY METHOD 02/16/2025 11:30 PM [facility] Total Protein 7.1 6.0 - 8.0 g/dL LAB CHEMISTRY METHOD 02/16/2025 11:30 PM EDT [facility] Albumin 3.7 3.2 - 5.0 g/dL LAB CHEMISTRY METHOD 02/16/2025 11:30 PM [facility] Total Bilirubin 0.8 0.0 - 1.4 mg/dL LAB CHEMISTRY METHOD 02/16/2025 11:30 PM EDT [facility] Blood Venous blood specimen / Unknown Venipuncture / Unknown 02/16/2025 10:36 PM EDT 02/16/2025 10:58 PM EDT us Olayinka Bustamante MD LAB BLOOD ORDERABLES Final Result [facility] [address] [place] [address], from Last 3 Months or Most Recently Relevant to Health Maintenance Insurance [place]ICAID - [place]
--- OUTSIDE RECORDS SUMMARY | 2025-05-27 18:53 | XMS_ITS | Encounter Summary ---
Author Organization [employer] Address [address] [facility] 7t [place] [address] Care Team Providers Care Desktop Support Specialist Name Role Phone Stefanie Gibson Primary Care Provider [phone] Jonathan Wall MD Unavailable Rowena Kennedy MD Unavailable Taty Coates MD Unavailable [phone] Gladis Nunez RN Unavailable [phone] Max Ambrosio Unavailable Gentry Patel RN Unavailable [phone] Reason for Visit * Reason Onset Date Comments Hospital Follow-up 03/17/2024 Encounter Details Date Type Department Care Team (Late st Contact Info) Description 03/17/[address] [facility] [address] [place] [address] Stefanie Gibson FNP [address] [place], [place] [phone] Hospital Follow-up Social History Tobacco Use Types [...] from pt requesting a HDF appt. Hospital: [facility] Date of admission: 03/15 Discharge date: 03/17 Diagnosed: Kidney disease documented in this encounter Plan of Treatment Not on file documented as of this encounter Visit Diagnoses Not on filedocumented in this encounter Additional Health Concerns Assessment Noted Time PHQ-9 Depression Total Score: 8 02/27/20 24 3:30 PM EDT documented as of this encounter Care Teams Desktop Support Specialist Relationship Specialty Start Date End Date Stefanie Gibson FNP [address] [place] [address] PCP - General Family Medicine 04/26/22 Jonathan Wall MD [address] [place] [address] Nephrology 08/11/24 Rowena Kennedy MD [address] [place] [address] Urology 08/11/24 Taty Coates MD [address] [place] [address] Hematology and Oncology 08/11/24 Gladis Nunez, EVELIA [address] [place] [address] Registered Nurse Family Medicine 02/17/25 05/05/25 Max Ambrosio 02/17/25 Gentry Patel, RN [address] [place] [address] Registered Nurse Family Medicine 05/05/25 anthony stewart Dental Cream MakerService Center Appraiser 12/06/23 documented as of this encounter
--- OUTSIDE RECORDS SUMMARY | 2025-05-27 18:53 | XMS_ITS | Encounter Summary ---
Author Organization [employer] Address [address] [facility] 7t [place] [address] Care Team Providers Care Power Shovel Operator Helper Name Role Phone Stefanie Gibson Primary Care Provider [phone] Jonathan Wall MD Unavailable Rowena Kennedy MD Unavailable Taty Coates MD Unavailable [phone] Gladis Nunez RN Unavailable [phone] Max Ambrosio Unavailable Gentry Patel RN Unavailable [phone] Reason for Visit * Reason Comments Med Refill Encounter Details Date Type Department Care Team ([facility] st Contact Info) Description 08/11/2024 Refill [facility] CH[facility] MED & PEDS [address] [place], [place] [phone] Stefanie Gibson FNP [address] [place], [place] [phone] Renal infarct ([facility]/HCC) Social History Tobacco Use Types Packs/Day [...] documented as of this encounter Care Teams Power Shovel Operator Helper Relationship Specialty Start Date End Date Stefanie Gibson FNP [address] [place] [address] PCP - General Family Medicine 04/26/22 Jonathan Wall MD [address] [place] [address] Nephrology 08/11/24 Rowena Kennedy MD [address] [place] [address] Urology 08/11/24 Taty Coates MD 5 [place] [address] Hematology and Oncology 08/11/24 Gladis Nunez, RN [address] [place] [address] Registered Nurse Family Medicine 02/17/25 05/05/25 Max Ambrosio 02/17/25 Gentry Patel, EVELIA [address] [place] [address] Registered Nurse Family Medicine 05/05/25 anthony stewart Blade BonerGroover And Striper Operator 12/06/23 documented as of this encounter
--- OUTSIDE RECORDS SUMMARY | 2025-05-27 18:53 | XMS_ITS ---
Author Organization [employer] Address 75 [facility] 7t [place] [address] Care Team Providers Care Sand Molder Name Role Phone Stefanie Gibson Primary Care Provider [phone] Jonathan Wall MD Unavailable Rowena Kennedy MD Unavailable Taty Coates MD Unavailable [phone] Max Ambrosio Unavailable Gentry Patel RN Unavailable [phone] CHW Complex Status:Outreach In Progress (Enrolling) Start date:02/17/2025 Enrollment reason:ADT Feed Overview ED- Pt went to [facility] ED on 02/16/25. Case Team Name Relationship Phone Max Ambrosio(Responsible Staff) [phone] Continued Care and Services Coordination
--- OUTSIDE RECORDS SUMMARY | 2025-05-27 18:53 | XMS_ITS | Encounter Summary ---
Author Organization [employer] Address 75 [facility] 7t [place] [address] Care Team Providers Care Floor Associate Name Role Phone Stefanie Gibson Primary Care Provider [phone] Jonathan Wall MD Unavailable Rowena Kennedy MD Unavailable Taty Coates MD Unavailable [phone] Gladis Nunez RN Unavailable [phone] Max Ambrosio Unavailable Gentry Patel RN Unavailable [phone] Reason for Visit * Reason Comments Med Refill Encounter Details Date Type Department Care Team (Late st Contact Info) Description 02/25/2025 Refill [facility] CH[facility] MED & PEDS [address] [place], [place] [phone] Stefanie Gibson FNP [address] [place] [address] Social History Tobacco Use Types Packs/Day Years [...] documented as of this encounter Care Teams Floor Associate Relationship Specialty Start Date End Date Stefanie Gibson FNP [address] [place] [address] PCP - General Family Medicine 04/26/22 Jonathan Wall MD [address] [place] [address] Nephrology 08/11/24 Rowena Kennedy MD [address] [place] [address] Urology 08/11/24 Taty Coates MD 5 [place] [address] Hematology and Oncology 08/11/24 Gladis Nunez, EVELIA [address] [place] [address] Registered Nurse Family Medicine 02/17/25 05/05/25 Max Ambrosio 02/17/25 Gentry Patel, EVELIA [address] [place] [address] Registered Nurse Family Medicine 05/05/25 anthony stewart Clinical Quality ManagerCorrectional Manager 12/06/23 documented as of this encounter
--- OUTSIDE RECORDS SUMMARY | 2025-05-27 18:53 | XMS_ITS | Clinical Summary ---
Author Organization [employer] Address [address] [place] [address] Care Team Providers Care Aircraft Magneto Mechanic Name Role Phone Stefanie Gibson Primary Care Provider [phone] Jonathan Wall MD Unavailable Rowena Kennedy MD Unavailable Taty Coates MD Unavailable [phone] Max Ambrosio Unavailable Gentry Patel RN Unavailable [phone] Allergies Active Allergy Reactions Criticality Noted [...] Leora for medication management. Information provided for [facility] centers, [facility] Mental Health Support 19/03 and [facility] contact information. Pt was advised of [facility] hours. Gross hematuria 08/28/2024 Overview (08/28/2024): Following with [facility] Urology - Dr. Rowena Green. Cystoscopy completed Jun 2024. No suspicious bladder lesions identified Urine cytology: Jul 2024 - atypical urothelial cells. Irregular nuclear contours and coarse chromatin. 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 Large accessory left renal artery which is intact Following with [facility] - Dr. Jonathan Wall. Referred to vascular as may need repeat imaging studies and consideration of renal artery stenting. Avoid NSAID. Cont good hydration and BP control. Candidate for ARB in future. Following with [facility] Heme/Onc Dr. Coates. [...] renal artery which is intact Following with [facility] - Dr. Jonathan Wall. Last consult 04/14/24. Referred to vascular as may need repeat imaging studies and consideration of renal artery stenting. Avoid NSAID. Cont good hydration and BP control Following with [facility] Heme/Onc Dr. Coates. [...] (04/28/2024 6:16 PM EDT): Incidental finding from [facility] Hospitalization February 2024: 3mm tunica cyst overlying the left testicle, small bilateral epididymal cysts, small left varicocele Currently asymptomatic, Follow up precautions Referral to Urology placed 04/28/24 Assessment & Plan (04/06/2024 12:41 PM EDT): Incidental finding from [facility] Hospitalization February 2024: 3mm tunica [...] lymphadenopathy 06/10/2023 Overview (07/30/2023): 11/08/22: CT at [facility] w/ following impression: Periliac/periportal lymph nodes and several retroperitoneal lymph nodes which was not definitely pathologically enlarged. Recommend clinical correlation in 3 months to re-assess (January 2023) Repeat CT 04/05/23 at [facility]: Impression: Hepatic steatosis and hepatomegaly [...] the past 6 weeks, congratulated Bipolar depression ([facility]/HCC) 02/14/2023 Assessment & Plan (02/19/2025 2:08 PM [...] Leora for medication management. Information provided for [facility] centers, [facility] Mental Health Support 19/03 and [facility] contact information. Pt was advised of [facility] hours. Assessment & Plan (01/15/2025 10:29 AM [...] through current therapy clinic. Will refer to [facility] child psychiatrist Assessment & Plan (08/28/2024 8:52 PM EST): [...] Self Plan Patient to reach out to [facility] ED team as needed, Patient to engage in OP therapy , and Patient to reach out to [facility] as needed Assessment & Plan (01/01/2024 11:57 AM EDT): Continues with the following med regimen: Gabapentin 300mg TID Trazodone 50mg nightly PRN Melatonin 9mg nightly PRN Clonidine 0.1mg BID PRN Buspirone 10mg BID Lamotrigine 25mg daily Denies active SI/HI/thoughts of self harm Previously established with therapist and med management through [facility]. Interested in switching to other clinic due to difficulties with communication. Referral placed 12/31/23. Assessment & Plan (06/10/2023 10:43 AM EDT): Continues with the following med regimen: Gabapentin 300mg TID Trazodone 50mg nightly PRN Melatonin 9mg nightly PRN Clonidine 0.1mg BID PRN Buspirone 10mg BID Lamotrigine 25mg daily Denies active SI/HI/thoughts of self harm Established with therapist Julio) and med management through [facility]. Assessment & Plan (03/19/2023 9:17 AM EDT): [...] continued OP therapy and medication management with [facility]. At this time Eyal Rashid meets criteria for Visit Diagnoses: Problem List Items Addressed This Visit Other Bipolar depression (CMS/HCC) Patient ready to address current needs Yes Strengths- Eyal has a variety of coping mechanism and is supported by his partner. He is in the action stage of change. PLAN: 1. Follow up with [facility]: Not recommended for follow-up 2. Patient goal is to continue OP therapy and medication management with [facility] 3. Behavioral Recommendations a. Grounding exercises b. Deep breathing c. OP therapy and medication management Assessment & Plan (03/16/2023 2:07 PM EDT): Continues with the following med regimen: Gabapentin 300mg TID Trazodone 50mg nightly PRN Melatonin 9mg nightly PRN Clonidine 0.1mg BID PRN Buspirone 10mg BID Lamotrigine 25mg daily Denies active SI/HI/thoughts of self harm Established with therapist - [facility]. Plan to establish with psychiatrist shortly [...] Items Addressed This Visit Other Bipolar depression ([facility] ED) Patient ready to address current needs Yes Strengths include- Eyal is the action stage of change and practices grounding exercises with his partner PLAN: 1. Follow up with [facility]: Recommended for follow-up: with PCP03/16/2023 2. Patient [...] Last flare: February 2024 while hospitalized at [facility] Encouraged low purine diet Assessment & Plan (11/20/2023 6:54 PM EDT): Continue allopurinol 300mg daily Previous flare subsided, sent in refill of colchicine PRN flares Encouraged low purine diet Sleep apnea 02/13/2023 Overview (06/10/2023): Sleep study completed 04/03/23 at [facility]. Diagnosed with [facility]. Recommendation to start on CPAP 15cm H20 with a heated humidifier and AirTouch F20 full face mask size large. DME request placed 04/18/23 Assessment & Plan (08/28/2023 4:08 PM EST): Continues with CPAP at night, noted improvement with use. Plan to use more consistently in 2023. Internal hemorrhoid 01/16/2023 Assessment & Plan (11/20/2023 6:52 PM EDT): Colonoscopy [facility] October 2022: Large internal hemorrhoids. Normal mucosa [...] & Plan (08/05/2023 9:16 PM EST): Colonoscopy [facility] October 2022: Large internal hemorrhoids. Normal mucosa was seen in the colon. Referred to colorectal surgery for management of bleeding internal hemorrhoids. Recommended first screening colonoscopy in 10 years at age 47 y/o. Continues with Vit D and iron supplementation Referral through PCP office to colorectal surgery Jul 2023 Assessment & Plan (01/16/2023 8:35 AM EDT): Colonoscopy [facility] October 2022: Large internal hemorrhoids. Normal mucosa [...] Completed physical therapy Aug 2023: established with [facility]. Plan for diagnostic bilateral L3, L4, L5 LMBB's in anticipation of RFA. Did not experience much benefit s/p RFA Interested in consult at [facility] Pain Management, referral placed Assessment & Plan (04/28/2024 6:18 PM EDT): CT on the ED October 2022 showed degenerative changes of the lower thoracic spine and degenerative disc disease L4-L5 and L5-S1 Continue with physical therapy Continue APAP PRN Aug 2023: established with [facility]. Plan for diagnostic bilateral [...] Continue APAP PRN Aug 2023: established with [facility]. Plan for diagnostic bilateral [...] muscle spasms PRN Aug 2023: established with [facility]. Plan for diagnostic bilateral [...] flexeril for muscle spasms PRN Referral to [facility] Management on 07/30/23 Assessment & Plan (06/10/2023 10:47 AM EDT): CT on the ED October 2022 showed degenerative changes of the lower thoracic spine and degenerative disc disease L4-L5 and L5-S1 Referred to [facility] for further eval Continue APAP PRN Cont flexeril for muscle spasms PRN Assessment & Plan (01/16/2023 8:37 AM EDT): CT on the ED October 2022 showed degenerative changes of the lower thoracic spine and degenerative disc disease L4-L5 and L5-S1 Referral to [facility] for further eval Start baclofen for muscle spasms as needed Continue APAP PRN Resolved Problems Problem Noted Date Diagnosed Date Resolved Date Class 2 obesity 02/13/2023 04/28/2024 Chronic gout of multiple sites 09/18/2022 01/01/2024 Overview (09/24/2022): -Continue with allopurinol 300mg daily -Colchicine 0.6mg PRN Assessment & Plan (09/24/2022 9:58 PM EST): -reviewed triggers Encounters Date Type Department Care Team Description 05/18/2025 Patient Outreach [facility] [address] [place] [address] Stefanie Gibson, CLEANER ASSISTANT Care Management ([facility]- Initial assessment/enrollment) 05/18/2025 Patient Outreach [address] [address] Stefanie Gibson, CLEANER ASSISTANT Care Coordination ([facility]/Terrell Ambrosio, [facility] assessment not completed ) 05/04/2025 Patient Outreach [address] [address] Stefanie Gibson, CLEANER ASSISTANT Care Coordination ([facility]/COLT Ambrosio, Initial assessment RS ) 04/23/2025 Patient Outreach [address] [address] Stefanie Gibson, CLEANER ASSISTANT Care Coordination ([facility]/COLT Ambrosio, rescheduled assessment appt_lvm) 04/23/2025 Patient Outreach [facility] [address] [place] [address] Stefanie Gibson, CLEANER ASSISTANT 04/22/2025 Patient Outreach [address] [address] Stefanie Gibson, CLEANER ASSISTANT Care Coordination ([facility]/COLT Ambrosio, appt reminder_lvm ) 04/21/2025 Patient Outreach [facility] [address] [place] [address] Stefanie Gibson, CLEANER ASSISTANT 04/21/2025 Patient Outreach [facility] [address] [place] [address] Stefanie Gibson FNP 04/17/2025 2:30 PM EDT Office Visit [facility] [address] [place] [address] Stefanie Gibson FNP Second degree burn of hand, right, sequela (Primary Dx); Osteoarthritis of lumbar spine, unspecified spinal osteoarthritis complication status 04/17/2025 Travel 04/16/2025 Telephone [facility] [address] [place] [address] Stefanie Gibson FNP Chart Prep 04/13/2025 Patient Outreach [facility] [address] [place] [address] Stefanie Gibson FNP Care Coordination ([facility]/CHW Max Ambrosio, Initial outreach_assessment scheduled ) 04/10/2025 Travel 04/09/2025 Patient Outreach [facility] [address] [place] [address] Stefanie Gibson FNP Pre-visit Planning (SDOH screening negative and Tobacco screening negative) 04/06/2025 11:15 AM EDT Clinical Support [facility] [address] [place] [address] Gracy Tilley RN Cigarette smoker 04/06/2025 Travel 04/05/2025 Travel 04/03/2025 11:15 AM EDT Office Visit [facility] [address] [place] [address] Stefanie Gibson FNP Second degree burn of hand, right, sequela (Primary Dx); Primary hypertension 04/03/2025 Travel 04/02/2025 9:30 AM EDT Telemedicine [facility] [address] [place] [address] Maricruz Valderrama RN Full thickness burn of multiple sites of right hand, subsequent encounter [T23.391D] 04/02/2025 Travel 03/30/2025 Telephone [facility] [address] [place] [address] Stefanie Gibson FNP ER Follow-up 03/25/2025 Telephone [facility] [address] [place] [address] Kindra Blue DO ER Follow-up 03/24/2025 Refill [facility] [address] [place] [address] Stefanie Gibson, CLEANER ASSISTANT 03/04/2025 Patient Outreach [facility] [address], [place] [phone] Stefanie iGbson, CLEANER ASSISTANT 02/26/2025 Patient Outreach [address] [address] Phalmayelin Stefanie, CLEANER ASSISTANT Care Coordination ([facility]/CHW Max Ambrosio, TC #3 initial outreach attempt_lvm ) 02/25/2025 Refill [facility] [address], [place] [phone] Stefanie Gibson, CLEANER ASSISTANT 02/24/2025 Refill [facility] [address], [place] [phone] PhalStefanie dick, CLEANER ASSISTANT Gout, unspecified cause, unspecified chronicity, unspecified site from Last 3 Months Immunizations Immunization Administration [...] series) 05/23/2024 04/25/2024 COVID-19 Vaccine (3 - 2024- season) 2025 [...] PM EDT) Hepatitis C Antibody Nonreactive Nonreactive [facility] Comment:Antibodies to HCV no t detected; does not exclude early acuteHCV infection. Blood Venous blood specimen / Unknown 04/22/2024 3:12 PM EDT 04/22/2024 3:12 PM EDT us Stefanie Gibson CLEANER ASSISTANT LAB BLOOD ORDERABLES Final Res ult [facility] [address] [place] [phone] * (ABNORMAL) Lipid Panel, Standard (04/22/2024 3:12 PM EDT) Triglycerides 140 <150 mg/dL [facility] Comment:Desirable Triglyceri de: less than 150 mg/dLBorderline High Triglyceride 150-199 mg/dLHigh Triglyceride: 200-499 mg/dLVery High Triglyceride: greater than or equal to 5OO mg/dL Cholesterol 179 <200 mg/dL [facility] Comment:Desirable Cholestero l: less than 200 mg/dLBorderline High Cholesterol: 200-239 mg/dLHigh Cholesterol: greater than 239 mg/dL LDL Cholesterol Calculated 111(H) <100 mg/dL [facility] Comment:Desirable LDL: less than 100 mg/dLNear Optimal/Above Optimal LDL: 110- 129 mg/dLBorderline High LDL: 130-159 mg/dLHigh LDL: 160-189 mg/dLVery High LDL: greater than or equal to 190 mg/dL HDL Cholesterol 40(L) >40 mg/dL [facility] Comment:Desirable HDL: great er than 40 mg/dL Note: This HDL assay may give artificially low results in patients with liver disease. 04/22/2024 3:12 PM EDT 04/22/2024 3:12 PM EDT us Generic External Data Provider LAB BLOOD ORDERAB LES Final Result [facility] [address] [place] [phone] from Last 3 Months or Most Recently Relevant to Health Maintenance [place] [address] C3 Care Teams Aircraft Magneto Mechanic Relationship Specialty Start Date End Date Stefanie Gibson FNP [address] [place] [address] PCP - General Family Medicine 04/26/22 Jonathan Wall MD [address] [place] [address] Nephrology 08/11/24 Rowena Kennedy MD [address] [place] [address] Urology 08/11/24 Taty Coates MD [address] [place] [address] Hematology and Oncology 08/11/24 Max Ambrosio 02/17/25 Gentry Patel, EVELIA [address] [place] [phone] Registered Nurse Family Medicine 05/05/25 anthony stewart B2B Sales RepresentativeWarehouse Distribution Specialist 12/06/23
== END 2025-05-27 18:49 | disposition home or self-care (01) ==
LOC: HO.MRI 18:48
PROVIDERS: PCP Registered Nurse; Visit Provider Nurse Practitioner Family
DX: M51.369 Other intervertebral disc degeneration, lumbar region without mention of lumbar back pain or lower extremity pain (principal); M47.817 Spondylosis without myelopathy or radiculopathy, lumbosacral region; M54.51 Vertebrogenic low back pain
CPT/HCPCS: 72148

== ENCOUNTER → 2025-05-27 18:48 | Outpatient (BNV) | payer MEDICAID, SELFPAY | PROVIDERS: PCP Registered Nurse; Visit Provider Radiology Diagnostic Radiology | DX: M47.816 Spondylosis without myelopathy or radiculopathy, lumbar region (principal) | CPT/HCPCS: 72148 ==

== ENCOUNTER 2025-06-18 10:37 | Outpatient (REF) | payer MEDICAID, SELFPAY ==
[2025-06-18 11:35] LABS: Appearance Urine Clear; Glucose Urine UA Negative (Negative); PH 6.5 (5.0-9.0); Specific Gravity - Urine 1.020 (1.005-1.025)
[2025-06-18 11:55] LABS: Anion Gap 11 (12-20); Blood Urea Nitrogen 13 mg/dL (9-16); Carbon Dioxide 26 mmol/L (22-29); Chloride 108 mmol/L (96-108); Estimated Glomerular Filt Rate > 60; Potassium 3.9 mmol/L (3.3-5.1); Sodium 141 mmol/L (135-145)
[2025-06-18 12:03] LABS: Total Protein Urine Random < 7 mg/dL (<12)
--- OUTSIDE RECORDS SUMMARY | 2025-06-18 12:59 | XMS_ITS | Encounter Summary ---
Author Organization [employer] Address [address] [place] [address] Care Team Providers Care Rn Social Work Name Role Phone Stefanie Gibson Primary Care Provider Jonathan Wall MD Unavailable Rowena Kennedy MD Unavailable Taty Coates MD Unavailable [phone] Gladis Nunez RN Unavailable Unavailable Max Ambrosio Unavailable Gentry Patel RN Unavailable [phone] Reason for Visit * Reason Comments Med Refill Encounter Details Date Type Department Care Team (Late st Contact Info) Description 08/11/2024 Refill [facility] [address] [place], [place] [phone] Stefanie Gibson FNP [address] [place] [address] Renal infarct (CMS/HCC) Social History Tobacco Use Types Packs/Day Years Used Date Smoking Tobacco: Every Day Cigarettes 0.5 29.8 Started: 1995 Smokeless Tobacco: Never Comments:Boxes Alcohol [...] Care Team (Late st Contact Info) Description 07/20/2025 10:00 AM EST Office Visit [facility] [address] [place] [address] Stefanie Gibson FNP [address] [place] [address] documented as of this encounter Visit Diagnoses Diagnosis Renal infarct Vascular disorders of kidney documented in this encounter Additional Health Concerns Assessment Noted Time PHQ-9 Depression Total Score: 8 02/27/20 24 3:30 PM EDT documented as of this encounter Care Teams Rn Social Work Relationship Specialty Start Date End Date Stefanie Gibson FNP [address] [place] [address] PCP - General Family Medicine 04/26/22 Jonathan Wall MD [address] [place] [address] Nephrology 08/11/24 Rowena Kennedy MD [address] [place] [address] Urology 08/11/24 Taty Coates MD [address] [place] [address] Hematology and Oncology 08/11/24 Gladis Nunez RN [address] [place] [address] Registered Nurse Family Medicine 02/17/25 05/05/25 Max Ambrosio 02/17/25 Gentry Patel, RN [address] [place] [phone] Registered Nurse Family Medicine 05/05/25 anthony stewart Flight Test Data Acquisition TechnicianGoat Farmer 12/06/23 documented as of this encounter
--- OUTSIDE RECORDS SUMMARY | 2025-06-18 12:59 | XMS_ITS | Encounter Summary ---
Author Organization [employer] Address [address] [place] [address] Care Team Providers Care Specialty Finishing Utility Person Name Role Phone Stefanie Gibson Primary Care Provider [phone] Jonathan Wall MD Unavailable Rowena Kennedy MD Unavailable Taty Coates MD Unavailable [phone] Max Ambrosio Unavailable Gentry Patel RN Unavailable [phone] Encounter Details Date Type Department Care Team (Late st Contact Info) Description 06/18/2025 Orders Only GENERIC EXTERNAL DATA DEPARTMENT Provider, Generic External Data Social History Tobacco Use Types Packs/Day Years [...] is your housing situation today? I have baldevkajal bateman 04/09/[address] you [...] Upcoming Encounters Date Type Department Care Team ([facility] st Contact Info) Description 07/20/2025 10:00 AM EST Office Visit [facility] [address] [place] [address] Stefanie Gibson, TEXTILE KNITTER [address] [place] [address] documented as of this encounter Procedures Procedure Name Priority Date/Time Associated Diagnosis Comments CREATININE, SERUM Routine 06/18/2025 10: 54 AM EDT UREA NITROGEN (BUN) Routine 06/18/2025 1 0:54 AM EDT ELECTROLYTE PANEL Routine 06/18/2025 10: 54 AM EDT PROTEIN CREATININE RATIO, URINE Routine 06/18/2025 10:49 AM EDT URINALYSIS WITH REFLEX TO MICROSCOPIC Routine 06/18/2025 10:49 AM EDT documented in this encounter Results * Creatinine, Serum (06/18/2025 10:54 AM EDT) Creatinine, Serum 0.99 0.5 - 1.4 mg/dL [facility] Estimated Glomerular Filt Rate >60 [facility] Comment:Chronic Kidney Disea se: Estimated GFR < 60 mL/min/[id number] Kidney Disease: Estimated GFR < 15 mL/min/1.73m2 06/18/2025 10:5 4 AM EDT 06/18/2025 10:54 AM EDT us Generic External Data Provider LAB BLOOD ORDERAB LES Final Result Performing Organization Address [facility] Co de Phone Number [facility] [address] [place] [phone] * BUN (Blood Urea Nitrogen) (06/18/2025 10:54 AM EDT) Urea Nitrogen (BUN) 13 9 - 16 mg/dL [facility] 06/18/2025 10:5 4 AM EDT 06/18/2025 10:54 AM EDT Generic External Data Provider LAB BLOOD ORDERAB LES Final Result Performing Organization Address [facility] de Phone Number [facility] [address] [place] [phone] * (ABNORMAL) Electrolyte Panel (06/18/2025 10:54 AM EDT) Sodium 141 135 - 145 mmol/L [facility] Potassium 3.9 3.3 - 5.1 mmol/L [facility] Chloride 108 96 - 108 mmol/L [facility] Carbon Dioxide 26 22 - 29 mmol/L [facility] Anion Gap 11(L) 12 - 20 [facility] 06/18/2025 10:5 4 AM EDT 06/18/2025 10:54 AM EDT Generic External Data Provider LAB BLOOD ORDERAB LES Final Result Performing Organization Address City/[facility] Co de Phone Number [facility] [address] [place] [phone] * Protein Creatinine Ratio, Urine (06/18/2025 10:49 AM EDT) Creatinine, Urine 123.30 mg/dL [facility] Protein, Total, Random Urine <7 <12 mg/dL [facility] Protein/Creatin ine Ratio, Ur TNP <0.2 [facility] Comment:Unable to calculate urine protein creatinine ratio due tolow creatinine or protein result. 06/18/2025 10:4 9 AM EDT 06/18/2025 11:18 AM EDT us Generic External Data Provider LAB URINE ORDERAB LES Final Result Performing Organization Address [facility] de Phone Number [facility] [address] [place] [phone] * Urinalysis with Reflex to Microscopic (06/18/2025 10:49 AM EDT) Color Urine Yellow [facility] Appearance Urine Clear [facility] PH 6.5 5.0 - 9.0 [facility] Glucose Urine UA Negative Negative mg/dL [facility] Urine Blood Negative Negative [facility] Specific [place] - Urine 1.020 1.005 - 1.025 [facility] Urine Protein Negative Neg-Trace mg/dL [facility] Urine Ketones Negative Negative mg/dL [facility] Nitrite Urine Negative Negative [facility] Leukocyte Esterase Urine Negative Negative [facility] 06/18/2025 10:4 9 AM EDT 06/18/2025 11:18 AM EDT us Generic External Data Provider LAB URINE ORDERAB LES Final Result Performing Organization Address [facility] Co de Phone Number [facility] [address] [place] [phone] documented in this encounter Visit Diagnoses Not on filedocumented in this encounter Additional Health Concerns Assessment Noted Time PHQ-9 Depression Total Score: 13 025 1:16 PM EDT documented as of this encounter Care Teams Specialty Finishing Utility Person Relationship Specialty Start Date End Date Stefanie Gibson FNP [address] [place] [address] PCP - General Family Medicine 04/26/22 Jonathan Wall MD [address] [place] [address] Nephrology 08/11/24 Rowena Kennedy MD [address] [place] [address] Drive [address] [place] [address] Urology 08/11/24 Taty Coates MD [address] [place] [phone] Hematology and Oncology 08/11/24 Max Ambrosio 02/17/25 Gentry Patel, EVELIA [address] [place] [phone] Registered Nurse Family Medicine 05/05/25 anthony stewart [employer] Driver[employer]ar [employer] Ammonia Pump Operator 12/06/23 documented as of this encounter
--- OUTSIDE RECORDS SUMMARY | 2025-06-18 12:59 | XMS_ITS | Clinical Summary ---
Author Organization [employer] Address [address] [facility] [address] [place] [address] Care Team Providers Care System Designer Name Role Phone Stefanie Gibson Primary Care Provider [phone] Jonathan Wall MD Unavailable Rowena Kennedy MD Unavailable Taty Coates MD Unavailable [phone] Max Ambrosio Unavailable Gentry Patel RN Unavailable [phone] Allergies Active Allergy Reactions Criticality Noted Date Comments Gramineae Pollens 09/24/2022 Medications * This document contains information received from the source organization and may not represent a complete record from that organization. naltrexone (Depade) 50 MG tablet Take 1 tablet (50 mg) by mouth Once daily. 30 tablet 1 04/04/20 23 Active cyclobenzaprine (Flexeril) 10 MG tablet TAKE 1 TABLET BY MOUTH NEEDED EVERY MORNING AND AT NOON AND BEDTIME FOR MUSCLE SPASMS. 03/09/20 24 Active Blood Pressure kitIndications: Elevated blood pressure reading Use to check blood pressure once daily and if symptomatic 1 kit 04/04/20 24 Active albuterol (Ventolin HFA) 108 (90 Base) MCG/ACT inhaler Inhale 2 puffs every 6 (six) hours if needed for wheezing. 18 g 11 08/11/20 24 Active allopurinol (Zyloprim) 300 MG tablet Take 1 tablet (300 mg) by mouth Once per day. 90 tablet 1 08/11/20 24 Active amLODIPine (Norvasc) 10 MG tablet TAKE 1 TABLET(10 MG) BY MOUTH DAILY 90 tablet 2 10/03/19 25 Active gabapentin (Neurontin) 800 MG tablet Take 1 tablet (800 mg) by mouth 2 times daily. 60 tablet 3 01/13/20 25 026 Active busPIRone (Buspar) 10 MG tablet Take 1 tablet (10 mg) by mouth 2 times daily. 60 tablet 2 01/13/20 25 Active lamoTRIgine (LaMICtal) 100 MG tablet Take 1 tablet (100 mg) by mouth 2 times daily. 60 tablet 1 01/13/20 25 Active cloNIDine (Catapres) 0.1 MG tablet Take 1 tablet (0.1 mg) by mouth 2 times daily. 60 tablet 3 01/13/20 25 Active Melatonin 3 MG capsule Take 9mg by mouth nightly PRN for sleep 90 capsule 1 01/13/20 25 Active colchicine 0.6 MG tabletIndicatio ns:Gout, unspecified cause, unspecified chronicity, unspecified site TAKE 1 TABLET BY MOUTH THREE TIMES DAILY ON DAY#1 OF FLARE, FOLLOWED BY TWICE DAILY UNTIL 2 DAYS AFTER GOUT FLARE RESOLVES 21 tablet 2 02/26/20 25 Active neomycin-bacitr acin-polymyxin (Neosporin Original) ointment Apply topically 2 times daily. Active traZODone (Desyrel) 50 MG tablet TAKE 1 TABLET BY MOUTH AT BEDTIME NEEDED FOR SLEEP 30 tablet 1 05/28/20 25 Active traZODone (Desyrel) 50 MG tablet TAKE 1 TABLET BY MOUTH AT BEDTIME NEEDED FOR SLEEP 30 tablet 1 03/25/20 25 025 Discontinued Active Problems Problem Noted Date [...] Leora for medication management. Information provided for [facility] centers, Pending sale to [facility] 19/03 and [facility] contact information. Pt was advised of [facility] hours. Gross hematuria 08/28/2024 Overview (08/28/2024): Following with [facility] Urology - Dr. Rowena Green. Cystoscopy completed Jun 2024. No suspicious bladder lesions identified Urine cytology: Jul 2024 - atypical urothelial cells. Irregular nuclear contours and coarse chromatin. 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 Large accessory left renal artery which is intact Following with [facility] - Dr. Jonathan Wall. Referred to vascular as may need repeat imaging studies and consideration of renal artery stenting. Avoid NSAID. Cont good hydration and BP control. Candidate for ARB in future. Following with [facility] Heme/Onc Dr. Coates. Last consult 04/22/24. suspect [...] which is intact Following with [facility] - Dr. Jonathan Wall. Last consult 04/14/24. Referred to vascular as may need repeat imaging studies and consideration of renal artery stenting. Avoid NSAID. Cont good hydration and BP control Following with [facility] Heme/Onc Dr. Coates. Last consult 04/22/24. suspect [...] (04/28/2024 6:16 PM EDT): Incidental finding from [facility] Hospitalization February 2024: 3mm tunica cyst overlying the left testicle, small bilateral epididymal cysts, small left varicocele Currently asymptomatic, Follow up precautions Referral to Urology placed 04/28/24 Assessment & Plan (04/06/2024 12:41 PM EDT): Incidental finding from [facility] Hospitalization February 2024: 3mm tunica cyst overlying [...] lymphadenopathy 06/10/2023 Overview (07/30/2023): 11/08/22: CT at [facility] w/ following impression: Periliac/periportal lymph nodes and several retroperitoneal lymph nodes which was not definitely pathologically enlarged. Recommend clinical correlation in 3 months to re-assess (January 2023) Repeat CT 04/05/23 at [facility]: Impression: Hepatic steatosis and hepatomegaly with adjacent [...] the past 6 weeks, congratulated Bipolar depression ([facility]/HCC) 02/14/2023 Assessment & Plan (02/19/2025 2:08 PM [...] Leora for medication management. Information provided for [facility] centers, Pending sale to [facility] 19/03 and [facility] contact information. Pt was advised of [facility] hours. Assessment & Plan (01/15/2025 10:29 AM [...] through current therapy clinic. Will refer to [facility] behavioral psychologist Assessment & Plan (08/28/2024 8:52 PM [...] Self Plan Patient to reach out to [facility] team as needed, Patient to engage [...] established with therapist and med management through [employer]. Interested in switching to other clinic due to difficulties with communication. Referral placed 12/31/23. Assessment & Plan (06/10/2023 10:43 AM EDT): Continues with the following med regimen: Gabapentin 300mg TID Trazodone 50mg nightly PRN Melatonin 9mg nightly PRN Clonidine 0.1mg BID PRN Buspirone 10mg BID Lamotrigine 25mg daily Denies active SI/HI/thoughts of self harm Established with therapist (Lalo) and med management through [employer]. Assessment & Plan (03/19/2023 9:17 AM EDT): [...] continued OP therapy and medication management with [employer] [facility]. At this time Eyal Rashid meets criteria for Visit Diagnoses: Problem List Items Addressed This Visit Other Bipolar depression ([facility]/HCC) Patient ready to address current needs Yes Strengths- Eyal has a variety of coping mechanism and is supported by his partner. He is in the action stage of change. PLAN: 1. Follow up with [facility]: Not recommended for follow-up 2. Patient goal is to continue OP therapy and medication management with [employer] [facility] 3. Behavioral Recommendations a. Grounding exercises b. Deep breathing c. OP therapy and medication management Assessment & Plan (03/16/2023 2:07 PM EDT): Continues with the following med regimen: Gabapentin 300mg TID Trazodone 50mg nightly PRN Melatonin 9mg nightly PRN Clonidine 0.1mg BID PRN Buspirone 10mg BID Lamotrigine 25mg daily Denies active SI/HI/thoughts of self harm Established with therapist - Scott Harrington. Plan to establish with psychiatrist shortly Assessment [...] his partner PLAN: 1. Follow up with [facility]: Recommended for follow-up: with PCP03/16/2023 [...] Last flare: February 2024 while hospitalized at [facility] Encouraged low purine diet Assessment & Plan (11/20/2023 6:54 PM EDT): Continue allopurinol 300mg daily Previous flare subsided, sent in refill of colchicine PRN flares Encouraged low purine diet Sleep apnea 02/13/2023 Overview (06/10/2023): Sleep study completed 04/03/23 at [facility]. Diagnosed with HELEN. Recommendation to start on CPAP 15cm H20 with a heated humidifier and AirTouch F20 full face mask size large. DME request placed 04/18/23 Assessment & Plan (08/28/2023 4:08 PM EST): Continues with CPAP at night, noted improvement with use. Plan to use more consistently in 2023. Internal hemorrhoid 01/16/2023 Assessment & Plan (11/20/2023 6:52 PM EDT): Colonoscopy [facility] October 2022: Large internal hemorrhoids. Normal mucosa [...] & Plan (08/05/2023 9:16 PM EST): Colonoscopy [facility] October 2022: Large internal hemorrhoids. Normal mucosa was seen in the colon. Referred to colorectal surgery for management of bleeding internal hemorrhoids. Recommended first screening colonoscopy in 10 years at age 47 y/o. Continues with Vit D and iron supplementation Referral through PCP office to colorectal surgery Jul 2023 Assessment & Plan (01/16/2023 8:35 AM EDT): Colonoscopy [facility] October 2022: Large internal hemorrhoids. Normal mucosa [...] Completed physical therapy Aug 2023: established with [facility]. Plan for diagnostic bilateral L3, L4, L5 LMBB's in anticipation of RFA. Did not experience much benefit s/p RFA Interested in consult at [facility], referral placed Assessment & Plan (04/28/2024 6:18 PM EDT): CT on the ED October 2022 showed degenerative changes of the lower thoracic spine and degenerative disc disease L4-L5 and L5-S1 Continue with physical therapy Continue APAP PRN Aug 2023: established with [facility]. Plan for diagnostic bilateral [...] Continue APAP PRN Aug 2023: established with [facility]. Plan for diagnostic bilateral [...] muscle spasms PRN Aug 2023: established with [facility]. Plan for diagnostic bilateral [...] flexeril for muscle spasms PRN Referral to [facility] on 07/30/23 Assessment & Plan (06/10/2023 10:47 AM EDT): CT on the ED October 2022 showed degenerative changes of the lower thoracic spine and degenerative disc disease L4-L5 and L5-S1 Referred to [facility] for further eval Continue APAP PRN Cont flexeril for muscle spasms PRN Assessment & Plan (01/16/2023 8:37 AM EDT): CT on the ED October 2022 showed degenerative changes of the lower thoracic spine and degenerative disc disease L4-L5 and L5-S1 Referral to [facility] for further eval Start baclofen for muscle spasms as needed Continue APAP PRN Resolved Problems Problem Noted Date Diagnosed Date Resolved Date Class 2 obesity 02/13/2023 04/28/2024 Chronic gout of multiple sites 09/18/2022 01/01/2024 Overview (09/24/2022): -Continue with allopurinol 300mg daily -Colchicine 0.6mg PRN Assessment & Plan (09/24/2022 9:58 PM EST): -reviewed triggers Encounters Date Type Department Care Team Description 06/18/2025 Orders Only GENERIC EXTERNAL DATA DEPARTMENT Provider, Generic External Data 06/04/2025 Telephone [facility] [address] [place] [address] Stefanie Gibson FNP Recall TC 05/28/2025 Refill [facility] [address] [place] [address] Armida Boogie MD 05/27/2025 Orders Only [facility] External Provider, [facility] 05/18/2025 Patient Outreach [facility] [address] [place] [address] Stefanie Gibson PIN BALL MACHINE MECHANIC Care Management (C3CM- Initial assessment/enrollment) 05/18/2025 Patient Outreach [address] [phone] Stefanie Gibson PIN BALL MACHINE MECHANIC Care Coordination (C3/COLT Ambrosio, [facility] assessment not completed ) 05/04/2025 Patient Outreach [address] [address] Stefanie Gibson PIN BALL MACHINE MECHANIC Care Coordination (C3/COLT Ambrosio, Initial assessment RS ) 04/23/2025 Patient Outreach [address] [address] Stefanie Gibson, PIN BALL MACHINE MECHANIC Care Coordination (C3/COLT Ambrosio, rescheduled assessment appt_lvm) 04/23/2025 Patient Outreach [facility] [address] [place] [address] Stefanie Gibson FNP 04/22/2025 Patient Outreach [address] [address] Stefanie Gibson FNP Care Coordination ([facility]/COLT Ambrosio, appt reminder_lvm ) 04/21/2025 Patient Outreach [facility] [address] [place] [address] Stefanie Gibson FNP 04/21/2025 Patient Outreach [facility] [address] [place] [address] Stefanie Gibson FNP 04/17/2025 2:30 PM EDT Office Visit [facility] [address] [place] [address] Stefanie Gibson FNP Second degree burn of hand, right, sequela (Primary Dx); Osteoarthritis of lumbar spine, unspecified spinal osteoarthritis complication status 04/17/2025 Travel 04/16/2025 Telephone [facility] [address] [place] [phone] Stefanie Gibson FNP Chart Prep 04/13/2025 Patient Outreach [address] [address] Stefanie Gibson FNP Care Coordination ([facility]/COLT Ambrosio, Initial outreach_assessment scheduled ) 04/10/2025 Travel 04/09/2025 Patient Outreach [address] [address] Stefanie Gibson FNP Pre-visit Planning (SDOH screening negative and Tobacco screening negative) 04/06/2025 11:15 AM EDT Clinical Support [facility] [address] [place] [phone] Gracy Tilley RN Cigarette smoker 04/06/2025 Travel 04/05/2025 Travel 04/03/2025 11:15 AM EDT Office Visit [facility] [address] [place] [phone] Stefanie Gibson FNP Second degree burn of hand, right, sequela (Primary Dx); Primary hypertension 04/03/2025 Travel 04/02/2025 9:30 AM EDT Telemedicine [facility] [address] [place] [address] Maricruz Valderrama RN Full thickness burn of multiple sites of right hand, subsequent encounter [T23.391D] 04/02/2025 Travel 03/30/2025 Telephone [facility] [address] [place] [address] Stefanie Gibson FNP ER Follow-up 03/25/2025 Telephone [facility] [address], [place] [phone] Kindra Blue DO ER Follow-up 03/24/2025 Refill [facility] [address], [place] [phone] Stefanie Gibson FNP from Last 3 Months Immunizations Immunization Administration [...] 04/17/2025 2:13 PM EDT Plan of Treatment Upcoming Encounters Date Type Department Care Team ([facility] st Contact Info) Description 07/20/2025 10:00 AM EST Office Visit [facility] [address] [place] [address] Stefaine Gibson, PIN BALL MACHINE MECHANIC [address] [place] [address] Health Maintenance Due Date Last Done Comments [...] TO MICROSCOPIC Routine 06/18/2025 10:49 AM EDT MR LUMBAR SPINE WO CONTRAST Routine 05/27/2025 8:30 PM EDT HEPATITIS C AB W/REFL TO HCV RNA, QN, PCR Routine 04/22/2024 3:12 PM EDT Hepatic steatosis LIPID PANEL, STANDARD Routine 04/22/2024 3:12 PM EDT from Last 3 Months or Most Recently Relevant to Health Maintenance Results * Creatinine, Serum (06/18/2025 10:54 AM EDT) Creatinine, Serum 0.99 0.5 - 1.4 mg/dL [facility] Estimated Glomerular Filt Rate >60 [facility] Comment:Chronic Kidney Disea se: Estimated GFR < 60 mL/min/1.86p2Vnowze Kidney Disease: Estimated GFR < 15 mL/min/1.73m2 06/18/2025 10:5 4 AM EDT 06/18/2025 10:54 AM EDT us Generic External Data Provider LAB BLOOD ORDERAB LES Final Result Performing Organization Address [facility] Co de Phone Number [facility] [address] [place] [phone] * BUN (Blood Urea Nitrogen) (06/18/2025 10:54 AM EDT) Urea Nitrogen (BUN) 13 9 - 16 mg/dL [facility] 06/18/2025 10:5 4 AM EDT 06/18/2025 10:54 AM EDT Generic External Data Provider LAB BLOOD ORDERAB LES Final Result Performing Organization Address [facility] Phone Number [facility] [address] [place] [phone] * (ABNORMAL) Electrolyte Panel (06/18/2025 10:54 AM EDT) Sodium 141 135 - 145 mmol/L [facility] Potassium 3.9 3.3 - 5.1 mmol/L [facility] Chloride 108 96 - 108 mmol/L [facility] Carbon Dioxide 26 22 - 29 mmol/L [facility] Anion Gap 11(L) 12 - 20 [facility] 06/18/2025 10:5 4 AM EDT 06/18/2025 10:54 AM EDT Generic External Data Provider LAB BLOOD ORDERAB LES Final Result Performing Organization Address [facility] Co de Phone Number [facility] [address] [place] [phone] * Protein Creatinine Ratio, Urine (06/18/2025 10:49 AM EDT) Creatinine, Urine 123.30 mg/dL [facility] Protein, Total, Random Urine <7 <12 mg/dL [facility] Protein/Creatin ine Ratio, Ur TNP <0.2 [facility] Comment:Unable to calculate urine protein creatinine ratio due tolow creatinine or protein result. 06/18/2025 10:4 9 AM EDT 06/18/2025 11:18 AM EDT us Generic External Data Provider LAB URINE ORDERAB LES Final Result Performing Organization Address [facility] de Phone Number [facility] [address] [place] [phone] * Urinalysis with Reflex to Microscopic (06/18/2025 10:49 AM EDT) Color Urine Yellow [facility] Appearance Urine Clear [facility] PH 6.5 5.0 - 9.0 [facility] Glucose Urine UA Negative Negative mg/dL [facility] Urine Blood Negative Negative [facility] Specific [place] - Urine 1.020 1.005 - 1.025 [facility] Urine Protein Negative Neg-Trace mg/dL [facility] Urine Ketones Negative Negative mg/dL [facility] Nitrite Urine Negative Negative [facility] Leukocyte Esterase Urine Negative Negative [facility] 06/18/2025 10:4 9 AM EDT 06/18/2025 11:18 AM EDT us Generic External Data Provider LAB URINE ORDERAB LES Final Result Performing Organization Address [facility] de Phone Number [facility] [address] [place] [phone] * MR Lumbar Spine w/o Contrast (05/27/2025 8:30 PM EDT) Anatomical Region Laterality Modality Spine, L-spine Magnetic Resonan ce 05/27/2025 8:30 PM EDT Narrative 05/27/2025 8:32 PM EDT [address] [address] Magnetic Resonance Report Signed Patient: Eyal Rashid MR#: [id number] : 1985 Acct:[id number] Age/Sex: 40 / M ADM Date: 05/27/25 Loc: HO.MRI Attending Dr: Alia FLORES Ordering Physician: Alia Carbajal Date of Service: 05/27/25 Procedure(s): MR lumbar spine wo con Accession Number(s): [id number] cc: Alia Carbajal PIN BALL MACHINE MECHANIC; Stefanie Gibson PIN BALL MACHINE MECHANIC Reason for Exam: M51.369 - Other intervertebral disc degeneration, lumbar region without ... CLINICAL HISTORY: M51.369 - Other intervertebral disc degeneration, lumbar region without ... MR lumbar spine without gadolinium Comparison: None Findings: No scoliosis or spondylolisthesis. No acute fracture or pathologic bone lesion. Cauda equina and conus medullaris within normal limits. Conus medullaris terminates at mid L1. T12-L1. Mild disc space narrowing and disc degeneration. No disc herniation, central canal or neural foraminal stenosis. L1-L2: Mild disc space narrowing and disc degeneration. No disc herniation, central canal or neural foraminal stenosis. L2-L3 common mild disc space narrowing and disc degeneration. No disc herniation, central canal or neural foraminal stenosis. L3-L4. Mild disc space narrowing and disc degeneration. No significant disc herniation or central canal stenosis. Neural foramina are patent bilaterally. L4-L5: Moderate disc space narrowing, disc desiccation and disc degeneration. Mild broad-based disc herniation with suggestion of subtle shallow superimposed central zone disc protrusion. Spinal canal is patent. Minimal narrowing of bilateral neural foramina. Mild bilateral facet arthropathy. L5-S1: Moderate disc space narrowing, disc degeneration and disc desiccation. Mild broad-based disc herniation with subtle left paracentral disc protrusion. No significant spinal canal stenosis. Neural foramina are patent bilaterally. Facet arthropathy. Paraspinous musculature intact. IMPRESSION: 1. Mild multilevel lumbar spine arthropathy as detailed above most conspicuous at L4-L5 and L5-S1. No evidence to suggest significant spinal canal or neural foraminal stenosis at any level. 2. Additional findings as above. This document has been electronically signed by: Tor Sparrow MD on 05/27/2025 20:30:56 Dictated By: Tor Sparrow MD Signed By: <Electronically signed by Tor Sparrow MD in OV> 05/27/252030 DD/ 29 TD/TT: 05/27/252029 Staff Services Manager: Procedure Note Donotuseinterpreter, Image - 05/27/2025 [place] [address] Magnetic Resonance Report Signed Patient: Eyal Rashid OMR#: [id number] : 1985Acct:[id number] Age/Sex: 40 / MADM Date: 05/27/25 Loc: HO.MRI Attending Dr: Alia FLORES Ordering Physician: Alia Carbajal Date of Service: 05/27/25 Procedure(s): MR lumbar spine wo con Accession Number(s): [id number] cc: Alia CarbajalP; Stefanie Gibson PIN BALL MACHINE MECHANIC Reason for Exam: M51.369 - Other intervertebral disc degeneration, lumbarregion without ... CLINICAL HISTORY: M51.369 - Other intervertebral disc degeneration, lumbarregion without ... MR lumbar spine without gadolinium Comparison: None Findings: No scoliosis or spondylolisthesis. No acute fracture or pathologic bone lesion. Cauda equina and conus medullaris within normal limits. Conus medullaris terminates at mid L1. T12-L1. Mild disc space narrowing and disc degeneration. No disc herniation, central canal or neural foraminal stenosis. L1-L2: Mild disc space narrowing and disc degeneration. No disc herniation, central canal or neural foraminal stenosis. L2-L3 common mild disc space narrowing and disc degeneration. No disc herniation, central canal or neural foraminal stenosis. L3-L4. Mild disc space narrowing and disc degeneration. No significant disc herniation or central canal stenosis. Neural foramina are patent bilaterally. L4-L5: Moderate disc space narrowing, disc desiccation and disc degeneration. Mild broad-based disc herniation with suggestion of subtle shallow superimposed central zone disc protrusion. Spinal canal is patent. Minimal narrowing of bilateral neural foramina. Mild bilateral facet arthropathy. L5-S1: Moderate disc space narrowing, disc degeneration and disc desiccation. Mild broad-based disc herniation with subtle left paracentral disc protrusion. No significant spinal canal stenosis. Neural foramina are patent bilaterally. Facet arthropathy. Paraspinous musculature intact. IMPRESSION: 1. Mild multilevel lumbar spine arthropathy as detailed above most conspicuous at L4-L5 and L5-S1. No evidence to suggest significant spinal canal or neural foraminal stenosis at any level. 2. Additional findings as above. This document has been electronically signed by: Tor Sparrow MD on 05/27/2025 20:30:56 Dictated By: Tor Sparrow MD Signed By: <Electronically signed by Tor Sparrow MD in OV> 05/27/252030 DD/ 29 TD/TT: 05/27/252029 Staff Services Manager: [facility] External Provider IMG MRI PROCEDURES Final Result * Hepatitis C Antibody with Reflex to HCV, RNA, Quantitative, Real-Time PCR (04/22/2024 3:12 PM EDT) Hepatitis C Antibody Nonreactive Nonreactive [facility] Comment:Antibodies to HCV no t detected; does not exclude early acuteHCV infection. Blood Venous blood specimen / Unknown 04/22/2024 3:12 PM EDT 04/22/2024 3:12 PM EDT Stefanie Gibson [facility] BLOOD ORDERABLES Final Res ult [facility] [address] [place] [phone] * (ABNORMAL) Lipid Panel, Standard (04/22/2024 3:12 PM EDT) Triglycerides 140 <150 mg/dL [facility] Comment:Desirable Triglyceri de: less than 150 mg/dLBorderline High Triglyceride 150-199 mg/dLHigh Triglyceride: 200-499 mg/dLVery High Triglyceride: greater than or equal to 5OO mg/dL Cholesterol 179 <200 mg/dL [facility] Comment:Desirable Cholestero l: less than 200 mg/dLBorderline High Cholesterol: 200-239 mg/dLHigh Cholesterol: greater than 239 mg/dL LDL Cholesterol Calculated 111(H) <100 mg/dL [facility] Comment:Desirable LDL: less than 100 mg/dLNear Optimal/Above Optimal LDL: 110- 129 mg/dLBorderline High LDL: 130-159 mg/dLHigh LDL: 160-189 mg/dLVery High LDL: greater than or equal to 190 mg/dL HDL Cholesterol 40(L) >40 mg/dL [facility] Comment:Desirable HDL: great er than 40 mg/dL Note: This HDL assay may give artificially low results in patients with liver disease. 04/22/2024 3:12 PM EDT 04/22/2024 3:12 PM EDT us Generic External Data Provider LAB BLOOD ORDERAB LES Final Result Performing Organization Address City/State/[facility] Co de Phone Number [facility] [address] [place] [address] [phone] from Last 3 Months or Most Recently Relevant to Health Maintenance [place] [address] [place] [address] C3 Care Teams System Designer Relationship Specialty Start Date End Date Stefanie Gibson FNP [address] [place] [address] PCP - General Family Medicine 04/26/22 Jonathan Wall MD [address] [place] [address] Nephrology 08/11/24 Rowena Kennedy MD [address] [place] [address] Urology 08/11/24 Taty Coates MD [address] [place] [address] Hematology and Oncology 08/11/24 Max Ambrosio 02/17/25 Gentry Patel, EVELIA [address] [place] [address] Registered Nurse Family Medicine 05/05/25 anthony stewart Education Administrative AssistantIndian Blanket Weaver 12/06/23
--- OUTSIDE RECORDS SUMMARY | 2025-06-18 13:01 | XMS_ITS ---
Author Organization [employer] Address [address] [facility] 7t [place] [address] Care Team Providers Care Project Builder Name Role Phone Stefanie Gibson Primary Care Provider [phone] Jonathan Wall MD Unavailable Rowena Kennedy MD Unavailable Taty Coates MD Unavailable [phone] Max Ambrosio Unavailable Gentry Patel RN Unavailable [phone] Complex Status:Outreach In Progress (Enrolling) Start date:02/17/2025 Enrollment reason:ADT Feed Overview ED- Pt went to [facility] ED on 02/16/25. Case Team Name Relationship Phone Gentry Patel RN(Responsible Staff) Registered Kacey leroy [phone] Continued Care and Services Coordination
--- OUTSIDE RECORDS SUMMARY | 2025-06-18 13:01 | XMS_ITS ---
Author Organization [employer] Address [address] [facility] 7t [place] [address] Care Team Providers Care Glassware Maker Demonstrator Name Role Phone Stefanie Gibson Primary Care Provider [phone] Jonathan Wall MD Unavailable Rowena Kennedy MD Unavailable Taty Coates MD Unavailable [phone] Max Ambrosio Unavailable Gentry Patel RN Unavailable [phone] CHW Complex Status:Outreach In Progress (Enrolling) Start date:02/17/2025 Enrollment reason:ADT Feed Overview ED- Pt went to [facility] ED on 02/16/25. Case Team Name Relationship Phone Max Ambrosio(Responsible Staff) [phone] Continued Care and Services Coordination
--- OUTSIDE RECORDS SUMMARY | 2025-06-18 13:01 | XMS_ITS | Encounter Summary ---
Author Organization [employer] Address [address] [facility] 7t [place] [address] Care Team Providers Care Sheet Pile Driver Operator Name Role Phone Stefanie Gibson Primary Care Provider [phone] Jonathan Wall MD Unavailable Rowena Kennedy MD Unavailable Taty Coates MD Unavailable [phone] Gladis Nunez RN Unavailable Unavailable Max Ambrosio Unavailable Gentry Patel RN Unavailable [phone] Reason for Visit * Reason Onset Date Comments Hospital Follow-up 03/17/2024 Encounter Details Date Type Department Care Team (Late st Contact Info) Description 03/17/2024 Telephone [facility] [address] [place] [address] Stefanie Gibson FNP [address] [place], [place] [phone] Hospital Follow-up Social History Tobacco Use Types [...] Tc from pt requesting a HDF appt. [facility]: [facility] Date of admission: 03/15 Discharge date: 03/17 Diagnosed: Kidney disease documented in this encounter Plan of Treatment Upcoming Encounters Date Type Department Care Team (Late st Contact Info) Description 07/20/2025 10:00 AM EST Office Visit [facility] [address] [place] [address] Stefanie Gibson FNP [address] [place] [address] documented as of this encounter Visit Diagnoses Not on filedocumented in this encounter Additional Health Concerns Assessment Noted Time PHQ-9 Depression Total Score: 8 02/27/20 24 3:30 PM EDT documented as of this encounter Care Teams Sheet Pile Driver Operator Relationship Specialty Start Date End Date Stefanie Gibson FNP [address] [place] [address] PCP - General Family Medicine 04/26/22 Jonathan Wall MD [address] [place] [address] Nephrology 08/11/24 Rowena Kennedy MD [address] [place] [address] Urology 08/11/24 Taty Coates MD [address] [place] [address] Hematology and Oncology 08/11/24 Gladis Nunez RN [address] [place] [address] Registered Nurse Family Medicine 02/17/25 05/05/25 Max Ambrosio 02/17/25 Gentry Patel, RN [address] [place] [address] Registered Nurse Family Medicine 05/05/25 anthony stewart Storage And Backup AdministratorPaper Cone Machine Tender 12/06/23 documented as of this encounter
--- OUTSIDE RECORDS SUMMARY | 2025-06-18 13:01 | XMS_ITS | Clinical Summary ---
Author Organization [address] [place] [address] [place] [phone] Phone Care Team Providers Care Instrument Lens Generator Name Role Phone Unavailable Primary Care Provider [...] perception of palpitations. DVT (deep venous thrombosis) ([facility] V24, [facility] V28) 06/18/2024 Assessment & Plan (07/16/2024 1:08 PM EST): Continues on Xarelto. Hypokalemia 06/18/2024 Cigarette smoker 04/06/2024 Overview (03/06/2025): -Cigg/day: 20 -Pack year history: < 20 Encouraged smoking cessation resources Primary hypertension 04/06/2024 Severe anxiety 02/27/2024 Bipolar depression ([facility] V24, [facility] V28) Sleep apnea 02/13/2023 Overview (03/06/2025): Sleep study completed 04/03/23 at [facility]. Diagnosed with HELEN. Recommendation to start on CPAP 15cm H20 with a heated humidifier and AirTouch F20 full face mask size large. DME request placed 04/18/23 Encounters Date Type Department Care Team Description 03/27/2025 7:54 PM EDT - 03/28/2025 1:33 AM EDT Emergency [facility] Emergency [address] [place] [phone] Korey Carney MD Full thickness burn of multiple sites of right hand, initial encounter (Primary Dx) Discharge Disposition: Home or Self Care 03/24/2025 1:13 PM EDT - 03/24/2025 2:43 PM EDT Emergency [facility] Emergency [address] [place] [phone] Superficial burn of multiple digits of right hand including superficial burn of thumb, initial encounter (Primary Dx) Discharge Disposition: Home or Self Care from Last 3 Months Immunizations Immunization Administration Dates Next Due Tdap Tetanus diptheria acell ular pertussis (Boostrix; Adacel) 7yo and older 02/16/2025 Surgical History Surgery Date Site/Laterality Comments GASTRIC BAND ADJUSTMENT Medical History Medical History Date Comments Deep vein thrombosis ([facility] V24, [facility] V28) Hypokalemia Sinus tachycardia Bipolar 1 disorder ([facility] V24, [facility] V28) Social History Tobacco Use Types Packs/Day [...] BURN Routine 04/07/2025 5:1 2 AM EDT WA DRESSINGS/DEBRIDEMENT PARTIAL THICKNESS GARCIA INI/SUBSEQ SMALL < 5% BSA Routine 04/07/2025 5:12 AM EDT HC TREATMENT BURN Routine 03/27/2025 9:0 0 PM EDT WA DRESSINGS/DEBRIDEMENT PARTIAL THICKNESS GARCIA INI/SUBSEQ SMALL < 5% BSA Routine 03/27/2025 9:00 PM EDT COMPREHENSIVE METABOLIC PANEL STAT 02/16/2025 10:36 PM EDT from Last 3 Months or Most Recently Relevant to Health Maintenance Results * WA DRESSINGS/DEBRIDEMENT PARTIAL THICKNESS GARCIA INI/SUBSEQ SMALL < 5% BSA, HC TREATMENT BURN (04/07/2025 5:12 AM EDT) Narrative Korey Carney MD - 04/07/2025 5:12 AM EDT Korey [...] ruptured blisters and serous drainage Wound base: Aneta Wound treatment: Antimicrobial, antiseptic skin cleanser, saline [...] ruptured blisters and serous drainage Wound base: Aneta Wound treatment: Antimicrobial, antiseptic skin cleanser, triple antibiotic ointment and saline wash Dressing: Non-stick sterile dressing and fine mesh gauze Burn area 3 details: Burn depth: Full thickness (3rd) Affected area: Upper extremity Upper extremity location: R hand Debridement performed: yes Debridement mechanism: Scissors and forceps Indications for debridement: adherent debris, devitalized blisters, devitalized skin, ruptured blisters and serous drainage Wound base: Aneta Wound treatment: Antimicrobial, saline wash, antiseptic skin cleanser and triple antibiotic ointment Dressing: Non-stick sterile dressing and fine mesh gauze Post-procedure details: Procedure completion: Tolerated with difficulty us Korey Carney MD IN CLINIC/BEDSIDE ORDERABLES Fin al Result * WA DRESSINGS/DEBRIDEMENT PARTIAL THICKNESS GARCIA INI/SUBSEQ SMALL < [...] devitalized skin and ruptured blisters Wound base: Aneta Wound treatment: Antimicrobial, saline wash and triple antibiotic ointment Dressing: Non-stick sterile dressing Additional burn areas: 3 Burn area 2 details: Burn depth: Full thickness (3rd) Affected area: Upper extremity Upper extremity location: R hand Debridement performed: yes Debridement mechanism: Forceps and scissors Indications for debridement: adherent debris, devitalized blisters, devitalized skin and ruptured blisters Wound base: Aneta Wound treatment: Antimicrobial, triple antibiotic ointment, saline wash and antiseptic skin cleanser Dressing: Non-stick sterile dressing Burn area 3 details: Burn depth: Full thickness (3rd) Affected area: Upper extremity Upper extremity location: R hand Debridement performed: yes Debridement mechanism: Scissors and forceps Indications for debridement: adherent debris, devitalized blisters, devitalized skin and ruptured blisters Wound base: Aneta Wound treatment: Antiseptic skin cleanser, antimicrobial, saline [...] complications Korey Carney MD IN CLINIC/BEDSIDE ORDERABLES Fin al Result * (ABNORMAL) Comprehensive metabolic panel (02/16/2025 10:36 PM EDT) Sodium 141 133 - 145 mmol/L LAB CHEMISTRY METHOD 02/16/2025 11:30 PM [facility] Potassium 3.4(L) 3.5 - 5.5 mmol/L LAB CHEMISTRY METHOD 02/16/2025 11:30 PM [facility] Chloride 109 96 - 110 mmol/L LAB CHEMISTRY METHOD 02/16/2025 11:30 PM [facility] CO2 22 21 - 32 mmol/L LAB CHEMISTRY METHOD 02/16/2025 11:30 PM [facility] Anion Gap 10 3 - 11 LAB CHEMISTRY METHOD 02/16/2025 11:30 PM [facility] Glucose 117(H) 70 - 100 mg/dL LAB CHEMISTRY METHOD 02/16/2025 11:30 PM [facility] BUN 11 5 - 25 mg/dL LAB CHEMISTRY METHOD 02/16/2025 11:30 PM [facility] Creatinine 1.10 0.70 - 1.30 mg/dL LAB CHEMISTRY METHOD 02/16/2025 11:30 PM [facility] eGFR 88 >=60 mL/min/1. 73m2 LAB CHEMISTRY METHOD 02/16/2025 11:30 PM [facility] Comment:Calculation based on the Chronic Kidney Disease Epidemiology Collaboration (CKD-EPI) equation refit without adjustment for race. BUN/Creatinine Ratio 10.0 LAB CHEMISTRY METHOD 02/16/2025 11:30 PM [facility] Calcium 8.3(L) 8.5 - 10.5 mg/dL LAB CHEMISTRY METHOD 02/16/2025 11:30 PM [facility] AST (SGOT) 29 10 - 42 unit/L LAB CHEMISTRY METHOD 02/16/2025 11:30 PM [facility] ALT (SGPT) 33 10 - 60 unit/L LAB CHEMISTRY METHOD 02/16/2025 11:30 PM EDT [facility] Alkaline Phosphatase 79 42 - 121 unit/L LAB CHEMISTRY METHOD 02/16/2025 11:30 PM EDT [facility] Total Protein 7.1 6.0 - 8.0 g/dL LAB CHEMISTRY METHOD 02/16/2025 11:30 PM EDT [facility] Albumin 3.7 3.2 - 5.0 g/dL LAB CHEMISTRY METHOD 02/16/2025 11:30 PM EDT [facility] Total Bilirubin 0.8 0.0 - 1.4 mg/dL LAB CHEMISTRY METHOD 02/16/2025 11:30 PM EDT [facility] Blood Venous blood specimen / Unknown Venipuncture / Unknown 02/16/2025 10:36 PM EDT 02/16/2025 10:58 PM EDT us Olayinka Bustamante MD LAB BLOOD ORDERABLES Final Result [facility] [address] [place] [address], from Last 3 Months or Most Recently Relevant to Health Maintenance Insurance [place]ICAID - [place]
--- OUTSIDE RECORDS SUMMARY | 2025-06-18 13:01 | XMS_ITS | Encounter Summary ---
Author Organization [employer] Address [address] [facility] 7t [place] [address] Care Team Providers Care Gold Leaf Laborer Name Role Phone Stefanie Gibson Primary Care Provider Jonathan Wall MD Unavailable Rowena Kennedy MD Unavailable Taty Coates MD Unavailable [phone] Gladis Nunez RN Unavailable Unavailable Max Ambrosio Unavailable Gentry Patel RN Unavailable [phone] Reason for Visit * Reason Comments Med Refill Encounter Details Date Type Department Care Team (Late st Contact Info) Description 02/25/2025 Refill [facility] [address] [place], [place] [phone] Stefanie Gibson FNP [address] [place] [address] Social History Tobacco Use Types Packs/Day Years [...] Description 07/20/2025 10:00 AM EST Office Visit [facility] [address] [place] [address] Stefanie Gibson FNP [address] [place] [address] documented as of this encounter Visit Diagnoses Not on filedocumented in this encounter Additional Health Concerns Assessment Noted Time PHQ-9 Depression Total Score: 13 025 1:16 PM EDT documented as of this encounter Care Teams Gold Leaf Laborer Relationship Specialty Start Date End Date Stefanie Gibson FNP [address] [place] [address] PCP - General Family Medicine 04/26/22 Jonathan Wall MD [address] [place] [address] Nephrology 08/11/24 Rowena Kennedy MD [address] [place] [address] Urology 08/11/24 Taty Coates MD [address] [place] [address] Hematology and Oncology 08/11/24 Gladis Nunez, EVELIA [address] [place] [address] Registered Nurse Family Medicine 02/17/25 05/05/25 Max Ambrosio 02/17/25 Gentry Patel, RN [address] [place] [address] Registered Nurse Family Medicine 05/05/25 anthony stewart Trash Truck DriverContact Lens Curve Grinder 12/06/23 documented as of this encounter
--- OUTSIDE RECORDS SUMMARY | 2025-06-18 13:01 | XMS_ITS | Encounter Summary ---
Author Organization [email or web address] Address [address] [facility] 7t [place] [address] Care Team Providers Care Hand Bootmaker Name Role Phone Stefanie Gibson Primary Care Provider Jonathan Wall MD Unavailable Rowena Kennedy MD Unavailable Taty Coates MD Unavailable [phone] Gladis Nunez RN Unavailable Unavailable Max Ambrosio Unavailable Gentry Patel RN Unavailable [phone] Reason for Visit * Reason Comments Med Refill Encounter Details Date Type Department Care Team (Late st Contact Info) Description 08/22/2024 Refill [facility] [address] [place], [place] [phone] Stefanie Gibson FNP [address] [place] [address] Renal infarct (CMS/HCC) Social History Tobacco Use [...] Description 07/20/2025 10:00 AM EST Office Visit [facility] [address] [place] [address] Stefanie Gibson FNP [address] [place] [address] documented as of this encounter Visit Diagnoses Diagnosis Renal infarct Vascular disorders of kidney documented in this encounter Additional Health Concerns Assessment Noted Time PHQ-9 Depression Total Score: 8 02/27/20 24 3:30 PM EDT documented as of this encounter Care Teams Hand Bootmaker Relationship Specialty Start Date End Date Stefanie Gibson FNP [address] [place] [address] PCP - General Family Medicine 04/26/22 Jonathan Wall MD [address] [place] [address] Nephrology 08/11/24 Rowena Kennedy MD [address] [place] [address] Urology 08/11/24 Taty Coates MD [address] [place] [address] Hematology and Oncology 08/11/24 Gladis Nunez RN [address] [place] [address] Registered Nurse Family Medicine 02/17/25 05/05/25 Max Ambrosio 02/17/25 Gentry Patel, RN [address] [place] [address] Registered Nurse Family Medicine 05/05/25 anthony stewart Dress OperatorCyber Intel Planner 12/06/23 documented as of this encounter
== END 2025-06-18 10:38 | disposition home or self-care (01) ==
LOC: HO.LAB 10:37
PROVIDERS: PCP Registered Nurse; Visit Provider Internal Medicine Nephrology
DX: I10 Essential (primary) hypertension (principal); N28.0 Ischemia and infarction of kidney; I77.73 Dissection of renal artery
CPT/HCPCS: 36415; 80051; 81003; 82565; 82570; 84156; 84520

== ENCOUNTER 2025-07-02 12:56 | Outpatient (AMB) | payer MEDICAID, SELFPAY ==
--- OUTSIDE RECORDS SUMMARY | 2025-06-30 12:30 | XMS_ITS | Encounter Summary ---
Author Organization [facility] Address [address] [place] [address] Care Team Providers Care School Occupational Therapist Name Role Phone Unavailable Primary Care Provider Unavailabl e Reason for Visit * Reason Comments Follow Up Encounter Details Date Type Department Care Team ([facility] st Contact Info) Description 06/30/2025 12:30 PM EST Behavioral Health Visit [facility] [address] [place] [phone] Jackie Schafer APRN [address] [facility] [place] [address] Social History Tobacco Use Types Packs/Day Years Used Date Smoking Tobacco: Never Assessed Sex and Gender Information Value Date Recorded Sex Assigned at Male 02/26/2025 5:10 AM PDT Legal Sex Male 5:10 AM PDT Gender Identity Male 02/26/2025 5:10 AM PDT Sexual Orientation Not on file documented as of this encounter Progress Notes * Jackie Schafer APRN - 06/30/2025 12:52 PM ESTAssociated Problem(s): PTSD (post- traumatic stress disorder) Continue Therapy * Jackie Schafer APRN - 06/30/2025 12:52 PM ESTAssociated Problem(s): Bipolar depression Bipolar Depression Assessment: symptoms well managed with current regiment. Plan: - Continue lamotrigine 100 mg PO twice daily - Continue trazodone 50 mg PO at bedtime as needed for sleep - Follow up in one month documented in this encounter Plan of Treatment Not on file documented as of this encounter Visit Diagnoses Diagnosis Bipolar depression- Primary Bipolar I disorder, most recent episode (or current) depressed, unspecified PTSD (post-traumatic stress disorder) Posttraumatic stress disorder documented in this encounter
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
[2025-07-02 13:03] VITALS: BP 147/94; PULSE 105; O2SAT 100; BMI 37.4
--- OUTSIDE RECORDS SUMMARY | 2025-07-02 15:53 | XMS_ITS ---
Author Organization [employer] Address [address] [place] [address] Care Team Providers Care Shoe Repairer Apprentice Name Role Phone Stefanie Gibson Primary Care Provider [phone] Jonathan Wall MD Unavailable Rowena Kennedy MD Unavailable Taty Coates MD Unavailable [phone] Max Ambrosio Unavailable Gentry Patel RN Unavailable [phone] Complex Status:Outreach In Progress (Enrolling) Start date:02/17/2025 Enrollment reason:ADT Feed Overview ED- Pt went to [facility] ED on 02/16/25. Case Team Name Relationship Phone Gentry Patel RN(Responsible Staff) Registered Kacey leroy [phone] Continued Care and Services Coordination
--- OUTSIDE RECORDS SUMMARY | 2025-07-02 15:53 | XMS_ITS | Encounter Summary ---
Author Organization [employer] Address [address] [place] [address] Care Team Providers Care Covered Buckle Assembler Name Role Phone Stefanie Gibson Primary Care Provider [phone] Jonathan Wall MD Unavailable Rowena Kennedy MD Unavailable Taty Coates MD Unavailable [phone] Gladis Nunez RN Unavailable Unavailable Max Ambrosio Unavailable Gentry Patel RN Unavailable [phone] Reason for Visit * Reason Onset Date Comments Hospital Follow-up 03/17/2024 Encounter Details Date Type Department Care Team (Late st Contact Info) Description 03/17/2024 Telephone [facility] [address] [place] [address] Stefanie Gibson FNP [address] [place], [place] [id number] Hospital Follow-up Social History Tobacco Use Types [...] Tc from pt requesting a HDF appt. [facility]: [facility] Date of admission: 03/15 Discharge date: 03/17 Diagnosed: Kidney disease documented in this encounter Plan of Treatment Upcoming Encounters Date Type Department Care Team (Late st Contact Info) Description 07/20/2025 10:00 AM EST Office Visit [facility] [address] [place] [address] Stefanie Gibson FNP [address] [place] [address] documented as of this encounter Visit Diagnoses Not on filedocumented in this encounter Additional Health Concerns Assessment Noted Time PHQ-9 Depression Total Score: 8 02/27/20 24 3:30 PM EDT documented as of this encounter Care Teams Covered Buckle Assembler Relationship Specialty Start Date End Date Stefanie Gibson FNP [address] [place] [address] PCP - General Family Medicine 04/26/22 Jonathan Wall MD [address] [place] [address] Nephrology 08/11/24 Rowena Kennedy MD [address] [place] [address] Urology 08/11/24 Taty Coates MD [address] [place] [address] Hematology and Oncology 08/11/24 Gladis Nunez RN [address] [place] [address] Registered Nurse Family Medicine 02/17/25 05/05/25 Max Ambrosio 02/17/25 Gentry Patel, RN [address] [place] [address] Registered Nurse Family Medicine 05/05/25 anthony stewart Animal Caretaker SupervisorCyber Instructor 12/06/23 documented as of this encounter
--- OUTSIDE RECORDS SUMMARY | 2025-07-02 15:53 | XMS_ITS | Encounter Summary ---
Author Organization [employer] Address [address] [place] [address] Care Team Providers Care Dance Professor Name Role Phone Stefanie Gibson Primary Care Provider [phone] Jonathan Wall MD Unavailable Rowena Kennedy MD Unavailable Taty Coates MD Unavailable [phone] Gladis Nunez RN Unavailable Unavailable Max Ambrosio Unavailable Gentry Patel RN Unavailable [phone] Reason for Visit * Reason Comments Med Refill Encounter Details Date Type Department Care Team (Late st Contact Info) Description 02/25/2025 Refill [facility] [address] [place], [place] [phone] Stefanie Gibson FNP [address] [place] [address] Social History Tobacco Use Types Packs/Day Years [...] Description 07/20/2025 10:00 AM EST Office Visit [facility] [address] [place] [address] Stefanie Gibson FNP [address] [place] [address] documented as of this encounter Visit Diagnoses Not on filedocumented in this encounter Additional Health Concerns Assessment Noted Time PHQ-9 Depression Total Score: 13 025 1:16 PM EDT documented as of this encounter Care Teams Dance Professor Relationship Specialty Start Date End Date Stefanie Gibson FNP [address] [place] [address] PCP - General Family Medicine 04/26/22 Jonathan Wall MD [address] [place] [address] Nephrology 08/11/24 Rowena Kennedy MD [address] [place] [address] Urology 08/11/24 Taty Coates MD [address] [place] [address] Hematology and Oncology 08/11/24 Gladis Nunez, EVELIA [address] [place] [address] Registered Nurse Family Medicine 02/17/25 05/05/25 Max Ambrosio 02/17/25 Gentry Patel, RN [address] [place] [address] Registered Nurse Family Medicine 05/05/25 anthony stewart Woven Wood Shade AssemblerPreparation Operator 12/06/23 documented as of this encounter
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
--- OUTSIDE RECORDS SUMMARY | 2025-07-02 15:53 | XMS_ITS ---
Author Organization [employer] Address [address] [place] [address] Care Team Providers Care Lime Supervisor Name Role Phone Stefanie Gibson Primary Care Provider [phone] Jonathan Wall MD Unavailable Rowena Kennedy MD Unavailable Taty Coates MD Unavailable [phone] Max Ambrosio Unavailable Gentry Patel RN Unavailable [phone] CHW Complex Status:Outreach In Progress (Enrolling) Start date:02/17/2025 Enrollment reason:ADT Feed Overview ED- Pt went to [facility] ED on 02/16/25. Case Team Name Relationship Phone Max Ambrosio(Responsible Staff) [phone] Continued Care and Services Coordination
--- OUTSIDE RECORDS SUMMARY | 2025-07-02 15:53 | XMS_ITS | Clinical Summary ---
Author Organization [employer] Address [address] [facility] 7[address] [place] [address] Care Team Providers Care Business Solutions Director Name Role Phone Stefanie Gibson Primary Care Provider [phone] Jonathan Wall MD Unavailable Rowena Kennedy MD Unavailable Taty Coates MD Unavailable [phone] Max Ambrosio Unavailable Gentry Patel RN Unavailable [phone] Allergies Active Allergy Reactions Criticality Noted [...] FLARE RESOLVES 21 tablet 2 5 Active neomycin-bacitra lisandro-polymyxin (Neosporin Original) ointment Apply topically 2 times daily. Active traZODone (Desyrel) 50 MG tablet TAKE 1 TABLET BY MOUTH AT BEDTIME NEEDED FOR SLEEP 30 tablet 1 5 Active Active Problems Problem Noted Date Diagnosed [...] Leora for medication management. Information provided for [facility] centers, [facility] 19/03 and [facility] contact information. Pt was advised of [facility] hours. Gross hematuria 08/28/2024 Overview (08/28/2024): Following with [facility] Urology - Dr. Rowena Green. Cystoscopy completed Jun 2024. No suspicious bladder lesions identified Urine cytology: Jul 2024 - atypical urothelial cells. Irregular nuclear contours and coarse chromatin. 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 Large accessory left renal artery which is intact Following with [facility] - Dr. Jonathan Wall. Referred to vascular as may need repeat imaging studies and consideration of renal artery stenting. Avoid NSAID. Cont good hydration and BP control. Candidate for ARB in future. Following with [facility] Heme/Onc Dr. Coates. Last consult 04/22/24. suspect [...] renal artery which is intact Following with [facility] - Dr. Jonathan Wall. Last consult 04/14/24. Referred to vascular as may need repeat imaging studies and consideration of renal artery stenting. Avoid NSAID. Cont good hydration and BP control Following with [facility] Heme/Onc Dr. Coates. Last consult 04/22/24. suspect [...] (04/28/2024 6:16 PM EDT): Incidental finding from [facility] Hospitalization February 2024: 3mm tunica cyst overlying the left testicle, small bilateral epididymal cysts, small left varicocele Currently asymptomatic, Follow up precautions Referral to Urology placed 04/28/24 Assessment & Plan (04/06/2024 12:41 PM EDT): Incidental finding from [facility] Hospitalization February 2024: 3mm tunica cyst [...] lymphadenopathy 06/10/2023 Overview (07/30/2023): 11/08/22: CT at [facility] w/ following impression: Periliac/periportal lymph nodes and several retroperitoneal lymph nodes which was not definitely pathologically enlarged. Recommend clinical correlation in 3 months to re-assess (January 2023) Repeat CT 04/05/23 at [facility]: Impression: Hepatic steatosis and hepatomegaly with [...] the past 6 weeks, congratulated Bipolar depression ([facility]/HCC) 02/14/2023 Assessment & Plan (02/19/2025 2:08 PM [...] will be referred for psychiatry services with [facility] for medication management. Information provided for [facility] centers, [facility] 19/03 and [facility] contact information. Pt was advised of [facility] hours. Assessment & Plan (01/15/2025 [...] through current therapy clinic. Will refer to [facility] correctional facility psychiatrist Assessment & Plan (08/28/2024 8:52 PM [...] Self Plan Patient to reach out to [facility] team as needed, Patient to engage in OP therapy , and Patient to reach out to [facility] as needed Assessment & Plan (01/01/2024 11:57 AM EDT): Continues with the following med regimen: Gabapentin 300mg TID Trazodone 50mg nightly PRN Melatonin 9mg nightly PRN Clonidine 0.1mg BID PRN Buspirone 10mg BID Lamotrigine 25mg daily Denies active SI/HI/thoughts of self harm Previously established with therapist and med management through [email or web address]. Interested in switching to other clinic due to difficulties with communication. Referral placed 12/31/23. Assessment & Plan (06/10/2023 10:43 AM EDT): Continues with the following med regimen: Gabapentin 300mg TID Trazodone 50mg nightly PRN Melatonin 9mg nightly PRN Clonidine 0.1mg BID PRN Buspirone 10mg BID Lamotrigine 25mg daily Denies active SI/HI/thoughts of self harm Established with therapist Julio) and med management through [email or web address]. Assessment & Plan (03/19/2023 9:17 AM EDT): [...] continued OP therapy and medication management with [email or web address]. At this time Eyal Rashid meets criteria for Visit Diagnoses: Problem List Items Addressed This Visit Other Bipolar depression (CMS/HCC) Patient ready to address current needs Yes Strengths- Eyal has a variety of coping mechanism and is supported by his partner. He is in the action stage of change. PLAN: 1. Follow up with [facility]: Not recommended for follow-up 2. Patient goal is to continue OP therapy and medication management with [facility] 3. Behavioral Recommendations a. Grounding exercises b. Deep breathing c. OP therapy and medication management Assessment & Plan (03/16/2023 2:07 PM EDT): Continues with the following med regimen: Gabapentin 300mg TID Trazodone 50mg nightly PRN Melatonin 9mg nightly PRN Clonidine 0.1mg BID PRN Buspirone 10mg BID Lamotrigine 25mg daily Denies active SI/HI/thoughts of self harm Established with therapist - [facility]. Plan to establish with psychiatrist [...] Items Addressed This Visit Other Bipolar depression ([facility]) Patient ready to address current needs Yes Strengths include- Eyal is the action stage of change and practices grounding exercises with his partner PLAN: 1. Follow up with [facility]: Recommended for follow-up: with PCP03/16/2023 2. Patient [...] Last flare: February 2024 while hospitalized at [facility] Encouraged low purine diet Assessment & Plan (11/20/2023 6:54 PM EDT): Continue allopurinol 300mg daily Previous flare subsided, sent in refill of colchicine PRN flares Encouraged low purine diet Sleep apnea 02/13/2023 Overview (06/10/2023): Sleep study completed 04/03/23 at [facility]. Diagnosed with HELEN. Recommendation to start on CPAP 15cm H20 with a heated humidifier and AirTouch F20 full face mask size large. DME request placed 04/18/23 Assessment & Plan (08/28/2023 4:08 PM EST): Continues with CPAP at night, noted improvement with use. Plan to use more consistently in 2023. Internal hemorrhoid 01/16/2023 Assessment & Plan (11/20/2023 6:52 PM EDT): Colonoscopy [facility] October 2022: Large internal hemorrhoids. Normal mucosa [...] & Plan (08/05/2023 9:16 PM EST): Colonoscopy [facility] October 2022: Large internal hemorrhoids. Normal mucosa was seen in the colon. Referred to colorectal surgery for management of bleeding internal hemorrhoids. Recommended first screening colonoscopy in 10 years at age 47 y/o. Continues with Vit D and iron supplementation Referral through PCP office to colorectal surgery Jul 2023 Assessment & Plan (01/16/2023 8:35 AM EDT): Colonoscopy [facility] October 2022: Large internal hemorrhoids. Normal mucosa [...] Completed physical therapy Aug 2023: established with [facility]. Plan for diagnostic bilateral L3, L4, L5 LMBB's in anticipation of RFA. Did not experience much benefit s/p RFA Interested in consult at [facility], referral placed Assessment & Plan (04/28/2024 6:18 PM EDT): CT on the ED October 2022 showed degenerative changes of the lower thoracic spine and degenerative disc disease L4-L5 and L5-S1 Continue with physical therapy Continue APAP PRN Aug 2023: established with [facility]. Plan for diagnostic bilateral [...] Continue APAP PRN Aug 2023: established with [facility]. Plan for diagnostic bilateral [...] muscle spasms PRN Aug 2023: established with [facility]. Plan for diagnostic bilateral [...] flexeril for muscle spasms PRN Referral to [facility] on 07/30/23 Assessment & Plan (06/10/2023 10:47 AM EDT): CT on the ED October 2022 showed degenerative changes of the lower thoracic spine and degenerative disc disease L4-L5 and L5-S1 Referred to [facility] for further eval Continue APAP PRN Cont flexeril for muscle spasms PRN Assessment & Plan (01/16/2023 8:37 AM EDT): CT on the ED October 2022 showed degenerative changes of the lower thoracic spine and degenerative disc disease L4-L5 and L5-S1 Referral to [facility] for further eval Start baclofen for muscle [...] DEPARTMENT Provider, Generic External Data 06/04/2025 Telephone [facility] [address] [place] [address] Stefanie Gibson FNP Recall TC 05/28/2025 Refill [facility] [address] [place] [address] Armida Boogie MD 05/27/2025 Orders Only [facility] External Provider, [facility] 05/18/2025 Patient Outreach [facility] [address] [place] [address] Stefanie Gibson FNP Care Management (C3CM- Initial assessment/enrollment) 05/18/2025 Patient Outreach [address] [address] Stefanie Gibson PRODUCTION CONTROL SUPERVISOR Care Coordination (C3/Terrell Ambrosio, SDOH assessment not completed ) 05/04/2025 Patient Outreach [address] [address] Stefanie Gibson FNP Care Coordination (C3CM/COLT Ambrosio, Initial assessment RS ) 04/23/2025 Patient Outreach [address] [address] Stefanie Gibson FNP Care Coordination (C3/COLT Ambrosio, rescheduled assessment appt_lvm) 04/23/2025 Patient Outreach [facility] [address] [place] [address] Stefanie Gibson FNP 04/22/2025 Patient Outreach [facility] [address] [place] [address] Stefanie Gibson FNP Care Coordination ([facility]/Terrell Ambrosio, appt reminder_lvm ) 04/21/2025 Patient Outreach [facility] [address] [place] [address] Stefanie Gibson, PRODUCTION CONTROL SUPERVISOR 04/21/2025 Patient Outreach [facility] [address] [place] [address] Stefanie Gibson FNP 04/17/2025 2:30 PM EDT Office Visit [facility] [address] [place] [address] Stefanie Gibson FNP Second degree burn of hand, right, sequela (Primary Dx); Osteoarthritis of lumbar spine, unspecified spinal osteoarthritis complication status 04/17/2025 Travel 04/16/2025 Telephone [facility] [address] [place] [address] Stefanie Gibson FNP Chart Prep 04/13/2025 Patient Outreach [facility] [address] [place] [address] Stefanie Gibson FNP Care Coordination ([facility]/Terrell Ambrosio, Initial outreach_assessment scheduled ) 04/10/2025 Travel 04/09/2025 Patient Outreach [address] [address] Stefanie Gibson FNP Pre-visit Planning (SDOH screening negative and Tobacco screening negative) 04/06/2025 11:15 AM EDT Clinical Support [facility] [address] [place] [address] Gracy Tilley RN Cigarette smoker 04/06/2025 Travel 04/05/2025 Travel 04/03/2025 11:15 AM EDT Office Visit [facility] [address] [place] [address] Stefanie Gibson, PRODUCTION CONTROL SUPERVISOR Second degree burn of hand, right, sequela (Primary Dx); Primary hypertension 04/03/2025 Travel 04/02/2025 9:30 AM EDT Telemedicine [facility] [address] [place] [address] Maricruz Valderrama, RN Full thickness burn of multiple sites of right hand, subsequent encounter [T23.391D] 04/02/2025 Travel from Last 3 Months Immunizations Immunization Administration [...] 10:00 AM EST Office Visit [facility] [address] [place] [address] Stefanie Gibson FNP [address] [place] [address] Health Maintenance Due Date Last Done Comments [...] Creatinine, Serum 0.99 0.5 - 1.4 mg/dL [facility] Estimated Glomerular Filt Rate >60 [facility] Comment:Chronic Kidney Disea se: Estimated GFR < 60 mL/min/[id number] Kidney Disease: Estimated GFR < 15 mL/min/1.73m2 06/18/2025 10:5 4 AM EDT 06/18/2025 10:54 AM EDT us Generic External Data Provider LAB BLOOD ORDERAB LES Final Result [facility] [address] [place] [phone] * BUN (Blood Urea Nitrogen) (06/18/2025 10:54 AM EDT) Urea Nitrogen (BUN) 13 9 - 16 mg/dL [facility] 06/18/2025 10:5 4 AM EDT 06/18/2025 10:54 AM EDT Generic External Data Provider LAB BLOOD ORDERAB LES Final Result Performing Organization Address [facility] Co de Phone Number [facility] [address] [place] [phone] [phone] * (ABNORMAL) Electrolyte Panel (06/18/2025 10:54 AM EDT) Pathologist [facility] Sodium 141 135 - 145 mmol/L [facility] Potassium 3.9 3.3 - 5.1 mmol/L [facility] Chloride 108 96 - 108 mmol/L [facility] Carbon Dioxide 26 22 - 29 mmol/L [facility] Anion Gap 11(L) 12 - 20 [facility] 06/18/2025 10:5 4 AM EDT 06/18/2025 10:54 AM EDT Generic External Data Provider LAB BLOOD ORDERAB LES Final Result Performing Organization Address [facility] de Phone Number [facility] [address] [place] [phone] * Protein Creatinine Ratio, Urine (06/18/2025 10:49 AM EDT) [facility] Creatinine, Urine 123.30 mg/dL [facility] Protein, Total, Random Urine <7 <12 mg/dL [facility] Protein/Creatin ine Ratio, Ur TNP <0.2 [facility] Comment:Unable to calculate urine protein creatinine ratio due tolow creatinine or protein result. 06/18/2025 10:4 9 AM EDT 06/18/2025 11:18 AM EDT Generic External Data Provider LAB URINE ORDERAB LES Final Result Performing Organization Address [facility] Co de Phone Number [facility] [address] [place] [phone] * Urinalysis with Reflex to Microscopic (06/18/2025 10:49 AM EDT) Pathologist [facility] Color Urine Yellow [facility] Appearance Urine Clear [facility] PH 6.5 5.0 - 9.0 [facility] Glucose Urine UA Negative Negative mg/dL [facility] Urine Blood Negative Negative [facility] Specific Watts - Urine 1.020 1.005 - 1.025 [facility] Urine Protein Negative Neg-Trace mg/dL [facility] Urine Ketones Negative Negative mg/dL [facility] Nitrite Urine Negative Negative [facility] Leukocyte Esterase Urine Negative Negative [facility] 06/18/2025 10:4 9 AM EDT 06/18/2025 11:18 AM EDT us Generic External Data Provider LAB URINE ORDERAB LES Final Result Performing Organization Address City/State/[facility] de Phone Number [facility] [address] [place] [phone] * MR Lumbar Spine w/o Contrast (05/27/2025 8:30 PM EDT) Anatomical Region Laterality Modality Spine, L-spine Magnetic Resonan ce 05/27/2025 8:30 PM EDT Narrative 05/27/2025 8:32 PM EDT [address] [address] Magnetic Resonance Report Signed Patient: Eyal Rashid MR#: [id number] : 1985 Acct:[id number] Age/Sex: 40 / M ADM Date: 05/27/25 Loc: HO.MRI Attending Dr: Alia FLORES Ordering Physician: Alia Carbajal Date of Service: 05/27/25 Procedure(s): MR lumbar spine wo con Accession Number(s): [id number] cc: Alia Carbajal; Stefanie Gibson Reason for Exam: M51.369 - Other intervertebral [...] in OV> 05/27/252030 DD/ 29 TD/TT: 05/27/252029 Outdoor Guide: Procedure Note Donotuseinterpreter, Image - 05/27/[address] [address] Magnetic Resonance Report Signed Patient: Eyal Rashid OMR#: [id number] : 1985Acct:[id number] Age/Sex: 40 / MADM Date: 05/27/25 Loc: HO.MRI Attending Dr: Alia Carbajal PRODUCTION CONTROL SUPERVISOR Ordering Physician: Alia CarbajalP Date of Service: 05/27/25 Procedure(s): MR lumbar spine wo con Accession Number(s): [id number] cc: Alia Carbajal PRODUCTION CONTROL SUPERVISOR; ArthurStefanie PRODUCTION CONTROL SUPERVISOR Reason for Exam: M51.369 - Other intervertebral [...] in OV> 05/27/252030 DD/ 29 TD/TT: 05/27/252029 Outdoor Guide: [facility] External Provider IMG MRI PROCEDURES Final Result * Hepatitis C Antibody with Reflex to HCV, RNA, Quantitative, Real-Time PCR (04/22/2024 3:12 PM EDT) Hepatitis C Antibody Nonreactive Nonreactive [facility] Comment:Antibodies to HCV no t detected; does not exclude early acuteHCV infection. Blood Venous blood specimen / Unknown 04/22/2024 3:12 PM EDT 04/22/2024 3:12 PM EDT Stefanie Gibson PRODUCTION CONTROL SUPERVISOR LAB BLOOD ORDERABLES Final Res ult [facility] [address] [place] [phone] * (ABNORMAL) Lipid Panel, Standard (04/22/2024 3:12 PM EDT) Triglycerides 140 <150 mg/dL [facility] Comment:Desirable Triglyceri de: less than 150 mg/dLBorderline High Triglyceride 150-199 mg/dLHigh Triglyceride: 200-499 mg/dLVery High Triglyceride: greater than or equal to 5OO mg/dL Cholesterol 179 <200 mg/dL [facility] Comment:Desirable Cholestero l: less than 200 mg/dLBorderline High Cholesterol: 200-239 mg/dLHigh Cholesterol: greater than 239 mg/dL LDL Cholesterol Calculated 111(H) <100 mg/dL [facility] Comment:Desirable LDL: less than 100 mg/dLNear Optimal/Above Optimal LDL: 110- 129 mg/dLBorderline High LDL: 130-159 mg/dLHigh LDL: 160-189 mg/dLVery High LDL: greater than or equal to 190 mg/dL HDL Cholesterol 40(L) >40 mg/dL [facility] Comment:Desirable HDL: great er than 40 mg/dL Note: This HDL assay may give artificially low results in patients with liver disease. 04/22/2024 3:12 PM EDT 04/22/2024 3:12 PM EDT us Generic External Data Provider LAB BLOOD ORDERAB LES Final Result [facility] [address] [place] [phone] [phone] from Last 3 Months or Most Recently Relevant to Health Maintenance [place] [address] [place] [address] C3 Care Teams Business Solutions Director Relationship Specialty Start Date End Date Stefanie Gibson FNP [address] [place] [phone] PCP - General Family Medicine 04/26/22 Jonathan Wall MD [address] [place] [address] [address] [place] [phone] Nephrology 08/11/24 Rowena Kennedy MD [address] [place] [address] [address] [place] [address] Urology 08/11/24 Taty Coates MD [address] [place] [phone] Hematology and Oncology 08/11/24 Max Ambrosio 02/17/25 Gentry Patel RN [address] [place] [phone] Registered Nurse Family Medicine 05/05/25 anthony stewart TablemanAnimal Keeper 12/06/23
--- OUTSIDE RECORDS SUMMARY | 2025-07-02 15:53 | XMS_ITS | Encounter Summary ---
Author Organization [employer] Address [address] [facility] [address] [place] [address] Care Team Providers Care Commercial Specialist Name Role Phone Stefanie Gibson Primary Care Provider [phone] Jonathan Wall MD Unavailable Rowena Kennedy MD Unavailable Taty Coates MD Unavailable [phone] Gladis Nunez RN Unavailable Unavailable Max Ambrosio Unavailable Gentry Patel RN Unavailable [phone] Reason for Visit * Reason Comments Med Refill Encounter Details Date Type Department Care Team (Late st Contact Info) Description 08/11/2024 Refill [facility] [address] [place], [place] [phone] Stefanie Gibson FNP [address] [place] [address] Renal infarct (CMS/HCC) Social History Tobacco Use [...] Description 07/20/2025 10:00 AM EST Office Visit [facility] [address] [place] [address] Stefanie Gibson FNP [address] [place] [address] documented as of this encounter Visit Diagnoses Diagnosis Renal infarct Vascular disorders of kidney documented in this encounter Additional Health Concerns Assessment Noted Time PHQ-9 Depression Total Score: 8 02/27/20 24 3:30 PM EDT documented as of this encounter Care Teams Commercial Specialist Relationship Specialty Start Date End Date Stefanie Gibson FNP [address] [place] [address] PCP - General Family Medicine 04/26/22 Jonathan Wall MD [address] [place] [phone] Nephrology 08/11/24 Rowena Kennedy MD [address] [place] [address] Urology 08/11/24 Taty Coates MD [address] [place] [phone] Hematology and Oncology 08/11/24 Gladis Nunez RN [address] [place] [phone] Registered Nurse Family Medicine 02/17/25 05/05/25 Max Ambrosio 02/17/25 Gentry Patel, RN [address] [place] [phone] Registered Nurse Family Medicine 05/05/25 anthony stewart Seismic Survey AssistantWarp Hanger 12/06/23 documented as of this encounter
--- OUTSIDE RECORDS SUMMARY | 2025-07-02 15:53 | XMS_ITS | Clinical Summary ---
Author Organization [address] [place] [address] [place] [phone] Phone Care Team Providers Care Editing Computer Publisher Name Role Phone Unavailable Primary Care Provider [...] perception of palpitations. DVT (deep venous thrombosis) ([facility] V24, [facility] V28) 06/18/2024 Assessment & Plan (07/16/2024 1:08 PM EST): Continues on Xarelto. Hypokalemia 06/18/2024 Cigarette smoker 04/06/2024 Overview (03/06/2025): -Cigg/day: 20 -Pack year history: < 20 Encouraged smoking cessation resources Primary hypertension 04/06/2024 Severe anxiety 02/27/2024 Bipolar depression ([facility] V24, [facility] V28) Sleep apnea 02/13/2023 Overview (03/06/2025): Sleep study completed 04/03/23 at [facility]. Diagnosed with HELEN. Recommendation to start on CPAP 15cm H20 with a heated humidifier and AirTouch F20 full face mask size large. DME request placed 04/18/23 Immunizations Immunization Administration Dates Next Due Tdap Tetanus diptheria acell ular pertussis (Boostrix; Adacel) 7yo and older 02/16/2025 Surgical History Surgery Date Site/Laterality Comments GASTRIC BAND ADJUSTMENT Medical History Medical History Date Comments Deep vein thrombosis ([facility] V24, [facility] V28) Hypokalemia Sinus tachycardia Bipolar 1 disorder ([facility] V24, [facility] V28) Social History Tobacco Use [...] 05/23/2024 04/25/2024 Depression Screening 08/27/2024 COVID-19 Vaccine ( - 2024- season) 2025 10/20/2020, 09/29/2020 Influenza [...] BURN Routine 04/07/2025 5:1 2 AM EDT MS DRESSINGS/DEBRIDEMENT PARTIAL THICKNESS GARCIA INI/SUBSEQ SMALL < 5% BSA Routine 04/07/2025 5:12 AM EDT COMPREHENSIVE METABOLIC PANEL STAT 02/16/2025 10:36 PM EDT from Last 3 Months or Most Recently Relevant to Health Maintenance Results * MS DRESSINGS/DEBRIDEMENT PARTIAL THICKNESS GARCIA INI/SUBSEQ SMALL < [...] ruptured blisters and serous drainage Wound base: [place] Wound treatment: Antimicrobial, antiseptic skin cleanser, saline [...] ruptured blisters and serous drainage Wound base: [place] Wound treatment: Antimicrobial, antiseptic skin cleanser, triple antibiotic ointment and saline wash Dressing: Non-stick sterile dressing and fine mesh gauze Burn area 3 details: Burn depth: Full thickness (3rd) Affected area: Upper extremity Upper extremity location: R hand Debridement performed: yes Debridement mechanism: Scissors and forceps Indications for debridement: adherent debris, devitalized blisters, devitalized skin, ruptured blisters and serous drainage Wound base: [place] Wound treatment: Antimicrobial, saline wash, antiseptic skin cleanser and triple antibiotic ointment Dressing: Non-stick sterile dressing and fine mesh gauze Post-procedure details: Procedure completion: Tolerated with difficulty Korey Carney MD IN CLINIC/BEDSIDE ORDERABLES Fin al Result * (ABNORMAL) Comprehensive metabolic panel (02/16/2025 10:36 PM EDT) Pathologist [facility] Sodium 141 133 - 145 mmol/L LAB CHEMISTRY METHOD 02/16/2025 11:30 PM [facility] Potassium 3.4(L) 3.5 - 5.5 mmol/L LAB CHEMISTRY METHOD 02/16/2025 11:30 PM [facility] Chloride 109 96 - 110 mmol/L LAB CHEMISTRY METHOD 02/16/2025 11:30 PM [facility] CO2 22 21 - 32 mmol/L LAB CHEMISTRY METHOD 02/16/2025 11:30 PM [facility] Anion Gap 10 3 - 11 LAB CHEMISTRY METHOD 02/16/2025 11:30 PM [facility] Glucose 117(H) 70 - 100 mg/dL LAB CHEMISTRY METHOD 02/16/2025 11:30 PM [facility] BUN 11 5 - 25 mg/dL LAB CHEMISTRY METHOD 02/16/2025 11:30 PM [facility] Creatinine 1.10 0.70 - 1.30 mg/dL LAB CHEMISTRY METHOD 02/16/2025 11:30 PM T [facility] eGFR 88 >=60 mL/min/1. 73m2 LAB CHEMISTRY METHOD 02/16/2025 11:30 PM [facility] Comment:Calculation based on the Chronic Kidney Disease Epidemiology Collaboration (CKD-EPI) equation refit without adjustment for race. BUN/Creatinine Ratio 10.0 LAB CHEMISTRY METHOD 02/16/2025 11:30 PM T [facility] Calcium 8.3(L) 8.5 - 10.5 mg/dL LAB CHEMISTRY METHOD 02/16/2025 11:30 PM [facility] AST (SGOT) 29 10 - 42 unit/L LAB CHEMISTRY METHOD 02/16/2025 11:30 PM [facility] ALT (SGPT) 33 10 - 60 unit/L LAB CHEMISTRY METHOD 02/16/2025 11:30 PM [facility] Alkaline Phosphatase 79 42 - 121 unit/L LAB CHEMISTRY METHOD 02/16/2025 11:30 PM [facility] Total Protein 7.1 6.0 - 8.0 g/dL LAB CHEMISTRY METHOD 02/16/2025 11:30 PM [facility] Albumin 3.7 3.2 - 5.0 g/dL LAB CHEMISTRY METHOD 02/16/2025 11:30 PM [facility] Total Bilirubin 0.8 0.0 - 1.4 mg/dL LAB CHEMISTRY METHOD 02/16/2025 11:30 PM [facility] Blood Venous blood specimen / Unknown Venipuncture / Unknown 02/16/2025 10:36 PM EDT 02/16/2025 10:58 PM EDT us Olayinka Bustamante MD LAB BLOOD ORDERABLES Final Result [facility] [address] [place] [address], from Last 3 Months or Most Recently Relevant to Health Maintenance Insurance MEDICAID - [place]
--- OUTSIDE RECORDS SUMMARY | 2025-07-02 15:53 | XMS_ITS | Encounter Summary ---
Author Organization [employer] Address [address] [facility] 7t [place] [address] Care Team Providers Care Senior Wind Turbine Technician Name Role Phone Stefanie Gibson Primary Care Provider [phone] Jonathan Wall MD Unavailable Rowena Kennedy MD Unavailable Taty Coates MD Unavailable [phone] Gladis Nunez RN Unavailable Unavailable Max Ambrosio Unavailable Gentry Patel RN Unavailable [phone] Reason for Visit * Reason Comments Med Refill Encounter Details Date Type Department Care Team (Late st Contact Info) Description 08/22/2024 Refill [facility] CHC MED & PEDS [address] [place], [place] [phone] Stefanie Gibson FNP [address] [place] [address] Renal infarct (CMS/HCC) Social History Tobacco Use [...] 07/20/2025 10:00 AM EST Office Visit [facility] MED & PEDS [address] [place] [address] Stefanie Gibson FNP [address] [place] [address] documented as of this encounter Visit Diagnoses Diagnosis Renal infarct Vascular disorders of kidney documented in this encounter Additional Health Concerns Assessment Noted Time PHQ-9 Depression Total Score: 8 02/27/20 24 3:30 PM EDT documented as of this encounter Care Teams Senior Wind Turbine Technician Relationship Specialty Start Date End Date Stefanie Gibson FNP [address] [place] [address] PCP - General Family Medicine 04/26/22 Jonathan Wall MD [address] [place] [address] Nephrology 08/11/24 Rowena Kennedy MD [address] [place] [address] Urology 08/11/24 Taty Coates MD [address] [place] [address] Hematology and Oncology 08/11/24 Glaids Nunez RN [address] [place] [address] Registered Nurse Family Medicine 02/17/25 05/05/25 Max Ambrosio 02/17/25 Gentry Patel, RN [address] [place] [address] Registered Nurse Family Medicine 05/05/25 anthony stewart Stiff Leg OperatorHand Baseball Sewer 12/06/23 documented as of this encounter
== END 2025-07-02 13:22 | disposition home or self-care (01) ==
LOC: HO.PMC 12:57
PROVIDERS: PCP Registered Nurse; Visit Provider Nurse Practitioner Family
DX: M51.369 Other intervertebral disc degeneration, lumbar region without mention of lumbar back pain or lower extremity pain (principal); M47.817 Spondylosis without myelopathy or radiculopathy, lumbosacral region; G89.4 Chronic pain syndrome; M54.50 Low back pain, unspecified; G89.29 Other chronic pain; M54.51 Vertebrogenic low back pain
CPT/HCPCS: 99214

== ENCOUNTER → 2025-07-02 12:56 | Outpatient (BNVA) | payer MEDICAID, SELFPAY | PROVIDERS: PCP Registered Nurse; Visit Provider Nurse Practitioner Family | DX: Z71.2 Person consulting for explanation of examination or test findings (principal); M51.369 Other intervertebral disc degeneration, lumbar region without mention of lumbar back pain or lower extremity pain; M47.817 Spondylosis without myelopathy or radiculopathy, lumbosacral region | CPT/HCPCS: 99212 ==

== ENCOUNTER 2025-08-12 10:58 | Outpatient (REF) | payer MEDICAID, SELFPAY ==
--- NOTE | 2025-08-12 11:00 | EMG_ITS ---
Chief complaint: Last summer, started having burning sensation on right hand. Then a separate incident wherein he punched a wall, injuring his right wrist, needing stitches. Started having numbness in right thumb and 5th digits. Reason for referral: Evaluate for Carpal Tunnel Syndrome Referred by: Benjamin HOLLOWAY Procedure done: Right upper extremity NCS/EMG Precautions and/or limitations: None The limb temperature was monitored continuously and remained between 32-36 degrees C during the performance of the NCS. Nerve Conduction Studies Anti Sensory Summary Table ?Stim Site NR Onset (ms) Norm Onset (ms) Peak (ms) Norm Peak (ms) O-P Amp (?V) Norm O-P Amp Site1 Site2 Delta-0 (ms) Dist (cm) Milton (m/s) Norm Milton (m/s) Right Median Anti Sensory (2nd Digit) Wrist ? 4.2 5.3 <3.6 6.2 >10 Wrist 2nd Digit 4.2 14.0 33 Right Radial Anti Sensory (Thumb) Forearm ? 1.8 2.1 <3.1 15.4 Forearm Thumb 1.8 0.0 Right Ulnar Anti Sensory (5th Digit) Wrist ? 1.8 2.9 <3.7 104.3 >15.0 Wrist 5th Digit 1.8 14.0 78 Motor Summary Table ?Stim Site NR Onset (ms) Norm Onset (ms) O-P Amp (mV) Norm O-P Amp iAmp (mV) Amp (1st) (%) Site1 Site2 Delta-0 (ms) Dist (cm) Milton (m/s) Norm Milton (m/s) Right Median Motor (Abd Poll Brev) Wrist ? 5.1 <3.9 4.4 >4.5 5.3 100.0 Elbow Wrist 4.1 21.0 51 >45 Elbow ? 9.2 4.4 5.3 100.0 Right Ulnar Motor (Abd Dig Minimi) Wrist ? 2.9 <3.0 6.4 >5 8.5 100.0 B Elbow Wrist 3.4 20.0 59 >45 B Elbow ? 6.3 6.1 8.4 95.3 A Elbow B Elbow 1.1 10.0 91 >45 A Elbow ? 7.4 6.3 8.6 98.4 EMG ?Side Muscle Nerve Root Ins Act Fibs Psw Amp Dur Poly Recrt Int Pat Comment Right 1stDorInt Ulnar C8-T1 Nml Nml Nml Nml Nml 0 Nml Complete Right FlexCarRad Median C6-7 Nml Nml Nml Nml Nml 0 Nml Complete Right Biceps Musculocut C5-6 Nml Nml Nml Nml Nml 0 Nml Complete Right Triceps Radial C6-7-8 Nml Nml Nml Nml Nml 0 Nml Complete Right Deltoid Axillary C5-6 Nml Nml Nml Nml Nml 0 Nml Complete Right Abd Poll Brev Median C8-T1 Nml Nml Nml Nml Nml 0 Nml Complete FINDINGS: Right median motor nerve showed prolonged distal latency, small amplitude and normal conduction velocity. Right median sensory nerve showed small amplitude and prolonged peak latency. All other nerves tested were within normal. Concentric needle EMG was performed in selected muscles of the right upper extremity. Study did not reveal signs of electric abnormalities as shown in the table above. IMPRESSION: 1. This is an abnormal study. 2. There is electrodiagnostic evidence for right moderate-severe median neuropathy at the wrist, consistent with carpal tunnel syndrome. 3. There is no electrodiagnostic evidence for ulnar neuropathy, brachial plexopathy, or cervical radiculopathy. Thank you for your kind referral. Mylene Perez MD, PADMINI Board Certified, [place] Board of Physical Medicine and Rehabilitation (ABPMR) Board Certified, [place] Board of Electrodiagnostic Medicine (ABEM) CODIN 26492 x 1 extremity MTDD
--- OUTSIDE RECORDS SUMMARY | 2025-08-12 14:26 | XMS_ITS | Encounter Summary ---
Author Organization [employer] Address 75 [facility] 7t [place] [address] Care Team Providers Care Supervisor Alteration Workroom Name Role Phone Stefanie Gibson Primary Care Provider Jonathan Wall MD Unavailable Rowena Kennedy MD Unavailable Taty Coates MD Unavailable [phone] Gladis Nunez RN Unavailable Unavailable Max Ambrosio Unavailable Gentry Patel RN Unavailable [phone] Reason for Visit * Reason Comments Med Refill Encounter Details Date Type Department Care Team (Late st Contact Info) Description 02/25/2025 Refill [facility] CHC MED & PEDS [address] [place], [place] [phone] Stefanie Gibson FNP [address] [place] [address] Social History Tobacco Use Types Packs/Day Years Used Date Smoking Tobacco: Every Day Cigarettes 0.5 30 Started: 1995 Smokeless Tobacco: Never Comments:Boxes Alcohol [...] Care Team (Late st Contact Info) Description 10/23/2025 9:30 AM EST Office Visit [facility] MED & PEDS [address] [place] [address] Stefanie Gibson FNP [address] [place] [address] documented as of this encounter Visit Diagnoses Not on filedocumented in this encounter Additional Health Concerns Assessment Noted Time PHQ-9 Depression Total Score: 13 025 1:16 PM EDT documented as of this encounter Care Teams Supervisor Alteration Workroom Relationship Specialty Start Date End Date Stefanie Gibson FNP [address] [place] [address] PCP - General Family Medicine 04/26/22 Jonathan Wall MD [address] [place] [address] Nephrology 08/11/24 Rowena Kennedy MD [address] [place] [address] Urology 08/11/24 Taty Coates MD [address] [place] [address] Hematology and Oncology 08/11/24 Gladis Nunez, EVELIA [address] [place] [address] Registered Nurse Family Medicine 02/17/25 05/05/25 Max Ambrosio 02/17/25 Gentry Patel, RN [address] [place] [address] Registered Nurse Family Medicine 05/05/25 anthony stewart Dental Claims ProcessorBoard Certified Family Physician 12/06/23 documented as of this encounter
--- OUTSIDE RECORDS SUMMARY | 2025-08-12 14:26 | XMS_ITS | Encounter Summary ---
Author Organization [employer] Address [address] [facility] 7t [place] [address] Care Team Providers Care Revit Drafter Name Role Phone Stefanie Gibson Primary Care Provider Jonathan Wall MD Unavailable Rowena Kennedy MD Unavailable Taty Coates MD Unavailable [phone] Gladis Nunez RN Unavailable Unavailable Max Ambrosio Unavailable Gentry Patel RN Unavailable [phone] Reason for Visit * Reason Comments Med Refill Encounter Details Date Type Department Care Team (Late st Contact Info) Description 08/11/2024 Refill [facility] CHC MED & PEDS [address] [place], [place] [phone] Stefanie Gibson FNP [address] [place] [address] Renal infarct (CMS/HCC) Social History Tobacco Use [...] Description 10/23/2025 9:30 AM EST Office Visit [facility] MED & PEDS [address] [place] [address] Stefanie Gibson FNP [address] [place] [address] documented as of this encounter Visit Diagnoses Diagnosis Renal infarct Vascular disorders of kidney documented in this encounter Additional Health Concerns Assessment Noted Time PHQ-9 Depression Total Score: 8 02/27/20 24 3:30 PM EDT documented as of this encounter Care Teams Revit Drafter Relationship Specialty Start Date End Date Stefanie Gibson FNP [address] [place] [address] PCP - General Family Medicine 04/26/22 Jonathan Wall MD [address] [place] [address] Nephrology 08/11/24 Rowena Kennedy MD [address] [place] [address] Drive [address] [place] [address] Urology 08/11/24 Taty Coates MD [address] [place] [address] Hematology and Oncology 08/11/24 Gladis Nunez, EVELIA [address] [place] [address] Registered Nurse Family Medicine 02/17/25 05/05/25 Max Ambrosio 02/17/25 Gentry Patel, RN [address] [place] [address] Registered Nurse Family Medicine 05/05/25 anthony stewart Angle ShearerHead Of Training And Development 12/06/23 documented as of this encounter
--- OUTSIDE RECORDS SUMMARY | 2025-08-12 14:26 | XMS_ITS | Encounter Summary ---
Author Organization [employer] Address [address] [facility] 7t [place] [address] Care Team Providers Care Adjunct Philosophy Faculty Name Role Phone Stefanie Gibson Primary Care Provider [phone] Jonathan Wall MD Unavailable Rowena Kennedy MD Unavailable Taty Coates MD Unavailable [phone] Gladsi Nunez RN Unavailable Unavailable Max Ambrosio Unavailable Gentry Patel RN Unavailable [phone] Reason for Visit * Reason Onset Date Comments Hospital Follow-up 03/17/2024 Encounter Details Date Type Department Care Team (Late st Contact Info) Description 03/17/2024 Telephone [facility] MEDICINE [address] [place] [address] Stefanie Gibson FNP [address] [place], [place] [phone] Hospital Follow-up Social History Tobacco Use Types [...] Tc from pt requesting a HDF appt. [facility] Date of admission: 03/15 Discharge date: 03/17 Diagnosed: Kidney disease documented in this encounter Plan of Treatment Upcoming Encounters Date Type Department Care Team (Late st Contact Info) Description 10/23/2025 9:30 AM EST Office Visit [facility] MED & PEDS [address] [place] [address] Stefanie Gibson FNP [address] [place] [address] documented as of this encounter Visit Diagnoses Not on filedocumented in this encounter Additional Health Concerns Assessment Noted Time PHQ-9 Depression Total Score: 8 02/27/20 24 3:30 PM EDT documented as of this encounter Care Teams Adjunct Philosophy Faculty Relationship Specialty Start Date End Date Stefanie Gibson FNP [address] [place] [address] PCP - General Family Medicine 04/26/22 Jonathan Wall MD [address] [facility] [address] [place] [address] Nephrology 08/11/24 Rowena Kennedy MD [address] [facility] [address] [place] [address] Urology 08/11/24 Taty Coates MD [address] [place] [address] Hematology and Oncology 08/11/24 Gladis Nunez RN [address] [place] [address] Registered Nurse Family Medicine 02/17/25 05/05/25 Max Ambrosio 02/17/25 Gentry Patel, RN [address] [place] [address] Registered Nurse Family Medicine 05/05/25 anthony stewart Accountant AuditorBlanket Weaver 12/06/23 documented as of this encounter
--- OUTSIDE RECORDS SUMMARY | 2025-08-12 14:26 | XMS_ITS ---
Author Organization [employer] Address [address] [facility] 7t [place] [address] Care Team Providers Care Cloth Weigher Name Role Phone Stefanie Gibson Primary Care Provider [phone] Jonathan Wall MD Unavailable Rowena Kennedy MD Unavailable Taty Coates MD Unavailable [phone] Max Ambrosio Unavailable Gentry Patel RN Unavailable [phone] CHW Complex Status:Outreach In Progress (Enrolling) Start date:02/17/2025 Enrollment reason:ADT Feed Overview ED- Pt went to [facility] ED on 02/16/25. Case Team Name Relationship Phone Max Ambrosio(Responsible Staff) [phone] Continued Care and Services Coordination
--- OUTSIDE RECORDS SUMMARY | 2025-08-12 14:26 | XMS_ITS ---
Author Organization [employer] Address [address] [facility] 7t [place] [address] Care Team Providers Care Research Chemist Name Role Phone Stefanie Gibson Primary Care Provider [phone] Jonathan Wall MD Unavailable Rowena Kennedy MD Unavailable Taty Coates MD Unavailable [phone] Max Ambrosio Unavailable Gentry Patel RN Unavailable [phone] CM Complex Status:Outreach In Progress (Enrolling) Start date:02/17/2025 Enrollment reason:ADT Feed Overview ED- Pt went to [facility] ED on 02/16/25. Case Team Name Relationship Phone Gentry Patel RN(Responsible Staff) Registered Kacey leroy [phone] Continued Care and Services Coordination
--- OUTSIDE RECORDS SUMMARY | 2025-08-12 14:26 | XMS_ITS | Encounter Summary ---
Author Organization [employer] Address [address] [facility] 7t [place] [address] Care Team Providers Care Hog Raiser Name Role Phone Stefanie Gibson Primary Care Provider Jonathan Wall MD Unavailable Rowena Kennedy MD Unavailable Taty Coates MD Unavailable [phone] Gladis Nunez RN Unavailable Unavailable Max Ambrosio Unavailable Gentry Patel RN Unavailable [phone] Reason for Visit * Reason Comments Med Refill Encounter Details Date Type Department Care Team (Late st Contact Info) Description 08/22/2024 Refill [facility] CHC MED & PEDS [address] [place], [place] [phone] Stefanie Gibson FNP [address] [place] [address] Renal infarct (CMS/HCC) Social History Tobacco Use [...] Description 10/23/2025 9:30 AM EST Office Visit [facility] MED & PEDS [address] [place] [address] Stefanie Gibson FNP [address] [place] [address] documented as of this encounter Visit Diagnoses Diagnosis Renal infarct Vascular disorders of kidney documented in this encounter Additional Health Concerns Assessment Noted Time PHQ-9 Depression Total Score: 8 02/27/20 24 3:30 PM EDT documented as of this encounter Care Teams Hog Raiser Relationship Specialty Start Date End Date Stefanie Gibson FNP [address] [place] [address] PCP - General Family Medicine 04/26/22 Jonathan Wall MD [address] [place] [address] Nephrology 08/11/24 Rowena Kennedy MD [address] [place] [address] Drive [address] [place] [address] Urology 08/11/24 Taty Coates MD [address] [place] [address] Hematology and Oncology 08/11/24 Gladis Nunez, EVELIA [address] [place] [address] Registered Nurse Family Medicine 02/17/25 05/05/25 Max Ambrosio 02/17/25 Gentry Patel, RN [address] [place] [address] Registered Nurse Family Medicine 05/05/25 anthony stewart Tube RebuilderFeed Mill Tender 12/06/23 documented as of this encounter
--- OUTSIDE RECORDS SUMMARY | 2025-08-12 14:26 | XMS_ITS | Clinical Summary ---
Author Organization [employer] Address [address] [place] [address] Care Team Providers Care Principal Software Architect Name Role Phone Stefanie Gibson Primary Care Provider [phone] Jonathan Wall MD Unavailable Rowena Kennedy MD Unavailable Taty Coates MD Unavailable [phone] Max Ambrosio Unavailable Gentry Patel RN Unavailable [phone] Allergies Active Allergy Reactions Criticality Noted Date Comments Gramineae Pollens 09/24/2022 Medications * This document contains information received from the source organization and may not represent a complete record from that organization. naltrexone (Depade) 50 MG tablet Take 1 tablet (50 mg) by mouth Once daily. 30 tablet 1 04/04/20 23 Active cyclobenzaprin e (Flexeril) 10 MG tablet TAKE 1 TABLET BY MOUTH NEEDED EVERY MORNING AND AT NOON AND BEDTIME FOR MUSCLE SPASMS. 03/09/20 24 Active Blood Pressure kitIndications :Elevated blood pressure reading Use to check blood pressure once daily and if symptomatic 1 kit 04/04/20 24 Active albuterol (Ventolin HFA) 108 (90 Base) MCG/ACT inhaler Inhale 2 puffs every 6 (six) hours if needed for wheezing. 18 g 11 08/11/20 24 Active amLODIPine (Norvasc) 10 MG tablet TAKE 1 TABLET(10 MG) BY MOUTH DAILY 90 tablet 2 10/03/19 25 Active lamoTRIgine (LaMICtal) 100 MG tablet [...] 1 01/13/20 25 Active colchicine 0.6 MG tabletIndicati ons:Gout, unspecified cause, unspecified chronicity, unspecified site TAKE 1 TABLET BY MOUTH THREE TIMES DAILY ON DAY#1 OF FLARE, FOLLOWED BY TWICE DAILY UNTIL 2 DAYS AFTER GOUT FLARE RESOLVES 21 tablet 2 02/26/20 25 Active neomycin-bacit racin-polymyxi n (Neosporin Original) ointment Apply topically 2 times daily. Active traZODone (Desyrel) 50 MG tablet TAKE 1 TABLET BY MOUTH AT BEDTIME NEEDED FOR SLEEP 30 tablet 1 05/28/20 25 Active busPIRone (Buspar) 10 MG tablet Take 1 tablet (10 mg) by mouth 2 times daily. 60 tablet 2 07/20/20 25 Active allopurinol (Zyloprim) 300 MG tablet Take 1 tablet (300 mg) by mouth Once per day. 90 tablet 1 07/20/20 25 Active gabapentin (Neurontin) 800 MG tablet Take 1 tablet (800 mg) by mouth 2 times daily. 60 tablet 3 07/20/20 25 026 Active allopurinol (Zyloprim) 300 MG tablet Take 1 tablet (300 mg) by mouth Once per day. 90 tablet 1 08/11/20 24 025 Discontinued(R eorder (will not trigger notification to Pharmacy)) gabapentin (Neurontin) 800 MG tablet Take 1 tablet (800 mg) by mouth 2 times daily. 60 tablet 3 01/13/20 25 025 Discontinued(R eorder (will not trigger notification to Pharmacy)) busPIRone (Buspar) 10 MG tablet Take 1 tablet (10 mg) by mouth 2 times daily. 60 tablet 2 01/13/20 25 025 Discontinued(T herapy completed) Active Problems Problem Noted Date Diagnosed Date PTSD (post-traumatic stress disorder) 02/19/2025 Assessment & Plan (07/19/2025 5:19 PM EST): - Apr 2025 [facility] Neuro[facility]ology evaluation: Cindi Patton (PhD) - Impression: Responses suggest mild symptoms of depression, and severe symptoms of anxiety. High level of PTSD. Normal cognitive functioning. Assessment & Plan (02/19/2025 2:08 PM EDT): [...] developed. OP sessions are done every Sunday. Eayl will be referred for psychiatry services with [facility] for medication management. Information provided for [facility] centers, [facility] 19/03 and [facility] contact information. Pt was advised of [facility] hours. Gross hematuria 08/28/2024 Overview (08/28/2024): Following with [facility] Urology - Dr. Rowena Green. Cystoscopy completed Jun 2024. No suspicious bladder lesions identified Urine cytology: Jul 2024 - atypical urothelial cells. Irregular nuclear contours and coarse chromatin. 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 Large accessory left renal artery which is intact Following with [facility] - Dr. Jonathan Wall. Referred to vascular as may need repeat imaging studies and consideration of renal artery stenting. Avoid NSAID. Cont good hydration and BP control. Candidate for ARB in future. Following with [facility] Heme/Onc Dr. Coates. Last consult 04/22/24. suspect [...] renal artery which is intact Following with [facility] - Dr. Jonathan Wall. Last consult 04/14/24. Referred to vascular as may need repeat imaging studies and consideration of renal artery stenting. Avoid NSAID. Cont good hydration and BP control Following with [facility] Heme/Onc Dr. Coates. Last consult 04/22/24. suspect [...] history: < 20 Encouraged smoking cessation resources Assessment & Plan (07/20/2025 7:35 PM EST): - Pre-contemplation phase, encouraged to reach out if interested in NRT or other resources Testicular cyst 04/06/2024 Assessment & Plan (04/28/2024 6:16 PM EDT): Incidental finding from [facility] Hospitalization February 2024: 3mm tunica cyst overlying the left testicle, small bilateral epididymal cysts, small left varicocele Currently asymptomatic, Follow up precautions Referral to Urology placed 04/28/24 Assessment & Plan (04/06/2024 12:41 PM EDT): Incidental finding from [facility] Hospitalization February 2024: 3mm tunica cyst overlying the left testicle, small bilateral epididymal cysts, small left varicocele Currently asymptomatic Will likely benefit from Urology follow up, although current priorities establishing with specialists re: renal infarct. Follow up precautions, discuss further at follow up visit Severe anxiety 02/27/2024 Healthcare maintenance 11/20/2023 Overview (07/20/2025): - Health Care Proxy: Signed January 2023 Assessment & Plan (07/20/2025 7:48 PM EST): - Due for routine physical and blood work; hepatitis B immunity status to be rechecked. - Recommended scheduling a physical examination. Advised to complete routine blood work one week prior to physical. Discussed flu and COVID vaccinations; patient declined at this time. Plan to reassess at next visit. Assessment & Plan (11/20/2023 6:55 PM EDT): Lab work ordered in anticipation of next visit Hepatic steatosis 08/05/2023 Overview (08/05/2023): Noted on CT scan October and Mar 2023 Recommended lifestyle interventions Periportal lymphadenopathy 06/10/2023 Overview (07/30/2023): 11/08/22: CT at [facility] w/ following impression: Periliac/periportal lymph nodes and several retroperitoneal lymph nodes which was not definitely pathologically enlarged. Recommend clinical correlation in 3 months to re-assess (January 2023) Repeat CT 04/05/23 at [facility]: Impression: Hepatic steatosis and hepatomegaly with adjacent [...] the past 6 weeks, congratulated Bipolar depression ([facility]/HCC) 02/14/2023 Assessment & Plan (07/20/2025 7:38 PM EST): Continues with the following med regimen: Gabapentin 300mg TID Trazodone 50mg nightly PRN Melatonin 9mg nightly PRN Clonidine 0.1mg BID PRN Lamotrigine 100mg BID Buspirone 10mg BID Denies active SI/HI/thoughts of self harm Continues following with therapist (Dhaval) Previously following with [facility] Boland APRN, but referred back to PCP Jun 2025 as he was doing well and stable on current regimen Assessment & Plan (02/19/2025 2:08 PM EDT): [...] [facility] for medication management. Information provided for [facility], [facility] and [facility] contact information. Pt was advised of [facility] hours. Assessment & Plan (01/15/2025 10:29 [...] through current therapy clinic. Will refer to [facility] child adolescent psychiatrist Assessment & Plan (08/28/2024 8:52 PM [...] Patient to reach out to [facility] team as needed, Patient to engage in [...] established with therapist and med management through [facility]. Interested in switching to other clinic due to difficulties with communication. Referral placed 12/31/23. Assessment & Plan (06/10/2023 10:43 AM EDT): Continues with the following med regimen: Gabapentin 300mg TID Trazodone 50mg nightly PRN Melatonin 9mg nightly PRN Clonidine 0.1mg BID PRN Buspirone 10mg BID Lamotrigine 25mg daily Denies active SI/HI/thoughts of self harm Established with therapist (Lalo) and med management through [facility]. Assessment & Plan (03/19/2023 9:17 AM EDT): [...] continued OP therapy and medication management with [facility]. At this time Eyal Timmons Gay meets criteria for Visit Diagnoses: Problem List Items Addressed This Visit Other Bipolar depression ([facility]) Patient ready to address current needs Yes Strengths- Eyal has a variety of coping mechanism and is supported by his partner. He is in the action stage of change. PLAN: 1. Follow up with [facility]: Not recommended for follow-up 2. Patient goal is to continue OP therapy and medication management with [facility] 3. Behavioral Recommendations a. Grounding exercises b. Deep breathing c. OP therapy and medication management Assessment & Plan (03/16/2023 2:07 PM EDT): Continues with the following med regimen: Gabapentin 300mg TID Trazodone 50mg nightly PRN Melatonin 9mg nightly PRN Clonidine 0.1mg BID PRN Buspirone 10mg BID Lamotrigine 25mg daily Denies active SI/HI/thoughts of self harm Established with therapist - [facility]. Plan to establish with psychiatrist shortly [...] Items Addressed This Visit Other Bipolar depression ([facility]) Patient ready to address current needs Yes Strengths include- Eyal is the action stage of change and practices grounding exercises with his partner PLAN: 1. Follow up with [facility]: Recommended for follow-up: with PCP03/16/2023 2. Patient [...] Last flare: February 2024 while hospitalized at [facility] Encouraged low purine diet Assessment & Plan (11/20/2023 6:54 PM EDT): Continue allopurinol 300mg daily Previous flare subsided, sent in refill of colchicine PRN flares Encouraged low purine diet Sleep apnea 02/13/2023 Overview (06/10/2023): [place] [facility] [place] Diagnosed with HELEN. Recommendation to start on CPAP 15cm H20 with a heated humidifier and AirTouch F20 full face mask size large. DME request placed 04/18/23 Assessment & Plan (07/20/2025 7:37 PM EST): - Reports continues to pull mask off at night. Has tried wide array of masks at night and reports unable to use d/t unintentional removal in middle of night. Interested in consult for surgical intervention such as Inspire device - Referral to [facility] placed 07/20/25 Assessment & Plan (08/28/2023 4:08 PM EST): Continues with CPAP at night, noted improvement with use. Plan to use more consistently in 2023. Internal hemorrhoid 01/16/2023 Assessment & Plan (11/20/2023 6:52 PM EDT): [place] [facility] [place] [...] Plan (08/05/2023 9:16 PM EST): [place] [facility] [place] [...] Plan (01/16/2023 8:35 AM EDT): [place] [facility] [place]: Large internal hemorrhoids. Normal mucosa was seen in the colon. Referred to colorectal surgery for management of bleeding internal hemorrhoids. Recommended first screening colonoscopy in 10 years at age 47 y/o. Continues with Vit D and iron supplementation Degenerative arthritis of lumbar spine 3 Overview (07/19/2025): -05/27/25: Lumbar MRI - mild multilevel lumbar spine arthropathy as detailed above most conspicuous at L4-L5 and L5-S1. No evidence to suggest significant spinal canal or neural foraminal stenosis at any level. Assessment & Plan (07/19/2025 5:22 PM EST): CT on the ED October 2022 showed degenerative changes of the lower thoracic spine and degenerative disc disease L4-L5 and L5-S1 Completed physical therapy Aug 2023: established with [facility]. Plan for diagnostic bilateral L3, L4, L5 LMBB's in anticipation of RFA. Did not experience much benefit s/p RFA [facility] consult in Apr 2025. Consult in Jun 2025 w/ plan to proceed with lumbar spinal cord stimulation trial Assessment & Plan (04/19/2025 12:58 PM EDT): CT on the ED October 2022 showed degenerative changes of the lower thoracic spine and degenerative disc disease L4-L5 and L5-S1 Completed physical therapy Aug 2023: established with [facility]. Plan for diagnostic bilateral L3, L4, L5 LMBB's in anticipation of RFA. Did not experience much benefit s/p RFA Interested in consult at [facility] Pain [facility], referral placed Assessment & Plan (04/28/2024 6:18 PM EDT): CT on the ED October 2022 showed degenerative changes of the lower thoracic spine and degenerative disc disease L4-L5 and L5-S1 Continue with physical therapy Continue APAP PRN Aug 2023: established with [facility]. Plan for diagnostic bilateral [...] Continue APAP PRN Aug 2023: established with [facility]. Plan for diagnostic bilateral [...] muscle spasms PRN Aug 2023: established with [facility]. Plan for diagnostic bilateral [...] flexeril for muscle spasms PRN Referral to [facility] on 07/30/23 Assessment & Plan (06/10/2023 10:47 AM EDT): CT on the ED October 2022 showed degenerative changes of the lower thoracic spine and degenerative disc disease L4-L5 and L5-S1 Referred to [facility] for further eval Continue APAP PRN Cont flexeril for muscle spasms PRN Assessment & Plan (01/16/2023 8:37 AM EDT): CT on the ED October 2022 showed degenerative changes of the lower thoracic spine and degenerative disc disease L4-L5 and L5-S1 Referral to [facility] for further eval Start baclofen for muscle spasms as needed Continue APAP PRN Resolved Problems Problem Noted Date Diagnosed Date Resolved Date Class 2 obesity 02/13/2023 04/28/2024 Chronic gout of multiple sites 09/18/2022 01/01/2024 Overview (09/24/2022): -Continue with allopurinol 300mg daily -Colchicine 0.6mg PRN Assessment & Plan (09/24/2022 9:58 PM EST): -reviewed triggers Encounters Date Type Department Care Team Description 07/20/2025 10:00 AM EST Office Visit [facility] [address] [place] [address] Stefanie Gibson FNP PTSD (post-traumatic stress disorder) (Primary Dx); Bipolar depression (CMS/HCC) (HCC); Osteoarthritis of lumbar spine, unspecified spinal osteoarthritis complication status; Obstructive sleep apnea syndrome; Right hand pain; Healthcare maintenance; Cigarette smoker 07/20/2025 Travel 07/13/2025 Travel 06/18/2025 Orders Only GENERIC EXTERNAL DATA DEPARTMENT Provider, Generic External Data 06/04/2025 Telephone [facility] [address] [place] [address] Stefanie Gibson FNP Recall TC 05/28/2025 Refill [facility] [address], [place] [phone] Armida Boogie MD 05/27/2025 Orders Only [facility] External Provider, [facility] 05/18/2025 Patient Outreach [facility] [address], [place] [phone] Stefanie Gibson FNP Care Management (C3CM- Initial assessment/enrollment) 05/18/2025 Patient Outreach [facility] [address] [place], [place] [phone] Stefanie Gibson FNP Care Coordination (C3CM/CHW Max Ambrosio [facility] assessment not completed ) from Last 3 Months Immunizations Immunization Administration [...] Sign Reading Time Taken Comments Blood Pressure 122/84 07/20/2025 10:00 AM EST Pulse 94 07/20/2025 10:00 AM EST Temperature 36.7 C (98.1 F) 07/20/2025 10:00 AM EST Respiratory Rate 14 07/20/2025 10:00 AM EST Oxygen Saturation 98% 07/20/2025 10:00 AM EST Inhaled Oxygen Concentration - - Weight 111 kg (244 lb) 07/20/2025 10:00 AM EST Height 172.7 cm (5' 8 ) 07/20/2025 10:00 AM EST Body Mass Index 37.1 07/20/2025 10:00 AM EST Plan of Treatment Upcoming Encounters Date Type Department Care Team (Late st Contact Info) Description 10/23/2025 9:30 AM EST Office Visit [facility] [address] [place] [address] Stefanie Gibson, SCHEDULE PLANNING MANAGER [address] [place] [address] Health Maintenance Due Date Last Done Comments [...] Creatinine, Serum 0.99 0.5 - 1.4 mg/dL [facility] Estimated Glomerular Filt Rate >60 [facility] Comment:Chronic Kidney Disea se: Estimated GFR < 60 mL/min/1.43p4Slbuen Kidney Disease: Estimated GFR < 15 mL/min/1.73m2 06/18/2025 10:5 4 AM EDT 06/18/2025 10:54 AM EDT us Generic External Data Provider LAB BLOOD ORDERAB LES Final Result Performing Organization Address [facility] de Phone Number [facility] [address] [place] [phone] * BUN (Blood Urea Nitrogen) (06/18/2025 10:54 AM EDT) Urea Nitrogen (BUN) 13 9 - 16 mg/dL [facility] 06/18/2025 10:5 4 AM EDT 06/18/2025 10:54 AM EDT us Generic External Data Provider LAB BLOOD ORDERAB LES Final Result Performing Organization Address [facility] Phone Number [facility] [address] [place] [phone] * (ABNORMAL) Electrolyte Panel (06/18/2025 10:54 AM EDT) Sodium 141 135 - 145 mmol/L [facility] Potassium 3.9 3.3 - 5.1 mmol/L [facility] Chloride 108 96 - 108 mmol/L [facility] Carbon Dioxide 26 22 - 29 mmol/L [facility] Anion Gap 11(L) 12 - 20 [facility] 06/18/2025 10:5 4 AM EDT 06/18/2025 10:54 AM EDT us Generic External Data Provider LAB BLOOD ORDERAB LES Final Result Performing Organization Address [facility] Co de Phone Number [facility] [address] [place] [phone] * Protein Creatinine Ratio, Urine (06/18/2025 10:49 AM EDT) Creatinine, Urine 123.30 mg/dL [facility] Protein, Total, Random Urine <7 <12 mg/dL [facility] Protein/Creatin ine Ratio, Ur TNP <0.2 [facility] Comment:Unable to calculate urine protein creatinine ratio due tolow creatinine or protein result. 06/18/2025 10:4 9 AM EDT 06/18/2025 11:18 AM EDT Generic External Data Provider LAB URINE ORDERAB LES Final Result Performing Organization Address [facility] Co de Phone Number [facility] [address] [place] [phone] * Urinalysis with Reflex to Microscopic (06/18/2025 10:49 AM EDT) Color Urine Yellow [facility] Appearance Urine Clear [facility] PH 6.5 5.0 - 9.0 [facility] Glucose Urine UA Negative Negative mg/dL [facility] Urine Blood Negative Negative [facility] Specific Mcdonough - Urine 1.020 1.005 - 1.025 [facility] Urine Protein Negative Neg-Trace mg/dL [facility] Urine Ketones Negative Negative mg/dL [facility] Nitrite Urine Negative Negative [facility] Leukocyte Esterase Urine Negative Negative [facility] 06/18/2025 10:4 9 AM EDT 06/18/2025 11:18 AM EDT Generic External Data Provider LAB URINE ORDERAB LES Final Result Performing Organization Address [facility] Co de Phone Number [facility] [address] [place] [phone] * MR Lumbar Spine w/o Contrast (05/27/2025 8:30 PM EDT) Anatomical Region Laterality Modality Spine, L-spine Magnetic Resonan ce 05/27/2025 8:30 PM EDT Narrative 05/27/2025 8:[address] [address] Magnetic Resonance Report Signed Patient: Eyal Rashid MR#: [id number] : 1985 Acct:[id number] Age/Sex: 40 / M ADM Date: 05/27/25 Loc: HO.MRI Attending Dr: Alia FLORES Ordering Physician: Alia Carbajal Date of Service: 05/27/25 Procedure(s): MR lumbar spine wo con Accession Number(s): [id number] cc: Alia CarbajalP; Stefanie Gibson Reason for Exam: M51.369 - [...] in OV> 05/27/252030 DD/ 29 TD/TT: 05/27/252029 Data Processor: Procedure Note Donotuseinterpreter, Image - 05/27/[address] [address] Magnetic Resonance Report Signed Patient: Eyal Rashid OMR#: [id number] : 1985Acct:[id number] Age/Sex: 40 / MADM Date: 05/27/25 Loc: HO.MRI Attending Dr: Alia FLORES Ordering Physician: Alia Carbajal Date of Service: 05/27/25 Procedure(s): MR lumbar spine wo [facility] Accession Number(s): [id number] cc: Alia CarbajalP; Stefanie Gibson Reason for Exam: M51.369 - [...] in OV> 05/27/252030 DD/ 29 TD/TT: 05/27/252029 Data Processor: [facility] External Provider IMG MRI PROCEDURES Final Result * Hepatitis C Antibody with Reflex to HCV, RNA, Quantitative, Real-Time PCR (04/22/2024 3:12 PM EDT) Hepatitis C Antibody Nonreactive Nonreactive [facility] Comment:Antibodies to HCV no t detected; does not exclude early acuteHCV infection. Blood Venous blood specimen / Unknown 04/22/2024 3:12 PM EDT 04/22/2024 3:12 PM EDT Stefanie Gibson SCHEDULE PLANNING MANAGER LAB BLOOD ORDERABLES Final Res ult [facility] [address] [place] [phone] * (ABNORMAL) Lipid Panel, Standard (04/22/2024 3:12 PM EDT) Triglycerides 140 <150 mg/dL [facility] Comment:Desirable Triglyceri de: less than 150 mg/dLBorderline High Triglyceride 150-199 mg/dLHigh Triglyceride: 200-499 mg/dLVery High Triglyceride: greater than or equal to 5OO mg/dL Cholesterol 179 <200 mg/dL [facility] Comment:Desirable Cholestero l: less than 200 mg/dLBorderline High Cholesterol: 200-239 mg/dLHigh Cholesterol: greater than 239 mg/dL LDL Cholesterol Calculated 111(H) <100 mg/dL [facility] Comment:Desirable LDL: less than 100 mg/dLNear Optimal/Above Optimal LDL: 110- 129 mg/dLBorderline High LDL: 130-159 mg/dLHigh LDL: 160-189 mg/dLVery High LDL: greater than or equal to 190 mg/dL HDL Cholesterol 40(L) >40 mg/dL [facility] Comment:Desirable HDL: great er than 40 mg/dL Note: This HDL assay may give artificially low results in patients with liver disease. 04/22/2024 3:12 PM EDT 04/22/2024 3:12 PM EDT us Generic External Data Provider LAB BLOOD ORDERAB LES Final Result Performing Organization Address City/State/[facility] Co de Phone Number [facility] [address] [place] [phone] from Last 3 Months or Most Recently Relevant to Health Maintenance [place] [address] [address] [address] C3 Care Teams Principal Software Architect Relationship Specialty Start Date End Date Stefanie Gibson FNP [address] [place] [address] PCP - General Family Medicine 04/26/22 Jonathan Wall MD [address] [place] [address] Nephrology 08/11/24 Rowena Kennedy MD [address] [place] [address] Drive [address] [place] [address] Urology 08/11/24 Taty Coates MD [address] [place] [id number] Hematology and Oncology 08/11/24 Max Ambrosio 02/17/25 Gentry Patel, EVELIA [address] [place] [id number] Registered Nurse Family Medicine 05/05/25 anthony stewart Diamond Die DrillerSupervising Film Or Videotape Editor 12/06/23
--- OUTSIDE RECORDS SUMMARY | 2025-08-12 14:26 | XMS_ITS | Clinical Summary ---
Author Organization [address] [place] [address] [place] [phone] Phone Care Team Providers Care Antisqueak Filler Name Role Phone Unavailable Primary Care Provider [...] right hand without foreign body Renal infarction 07/15/2024 Assessment & Plan (07/16/2024 [...] hypertension 04/06/2024 Severe anxiety 02/27/2024 Bipolar depression 02/14/2023 Sleep apnea 02/13/2023 Overview (03/06/2025): [place]23 [place] [facility] [place]osed with [...] Medical History Date Comments Deep vein thrombosis ([facility] V24, [facility] V28) Hypokalemia Sinus tachycardia Bipolar 1 disorder ([facility] V24, [facility] V28) Social History Tobacco Use Types [...] on file Sexual Orientation Not on file Last Filed Vital Signs Vital Sign Reading [...] Procedure Name Priority Date/Time Associated Diagnosis Comments COMPREHENSIVE METABOLIC PANEL STAT 02/16/2025 10:36 PM EDT from Last 3 Months or Most Recently Relevant to Health Maintenance Results * (ABNORMAL) Comprehensive metabolic panel (02/16/2025 10:36 [...] CHEMISTRY METHOD 02/16/2025 11:30 PM EDT [facility] Calcium 8.3(L) 8.5 - 10.5 mg/dL LAB CHEMISTRY METHOD 02/16/2025 11:30 PM [facility] AST (SGOT) 29 10 - 42 unit/L LAB CHEMISTRY METHOD 02/16/2025 11:30 PM EDT [facility] ALT (SGPT) 33 10 - 60 unit/L LAB CHEMISTRY METHOD 02/16/2025 11:30 PM [facility] Alkaline Phosphatase 79 42 - 121 unit/L LAB CHEMISTRY METHOD 02/[facility]25 [facility] Total Protein 7.1 6.0 - 8.0 g/dL LAB CHEMISTRY METHOD 02/16/2025 11:30 PM EDT [facility] Albumin 3.7 3.2 - 5.0 g/dL LAB CHEMISTRY METHOD 02/16/2025 11:30 PM [facility] Total Bilirubin 0.8 0.0 - 1.4 mg/dL LAB CHEMISTRY METHOD 02/16/2025 11:30 PM T [facility] Blood Venous blood specimen / Unknown Venipuncture / Unknown 02/16/2025 10:36 PM EDT 02/16/2025 10:58 PM EDT us Olayinka Bustamante MD LAB BLOOD ORDERABLES Final Result [facility] [address] [place] [address], from Last 3 Months or Most Recently Relevant to Health Maintenance Insurance [place]
== END 2025-08-12 10:59 | disposition home or self-care (01) ==
LOC: HO.NEURO 10:58
PROVIDERS: PCP Registered Nurse
DX: R20.0 Anesthesia of skin (principal); R20.2 Paresthesia of skin
CPT/HCPCS: 95886; 95909

== ENCOUNTER → 2025-08-12 11:00 | Outpatient (BNV) | payer MEDICAID, SELFPAY | PROVIDERS: PCP Registered Nurse; Visit Provider Physical Medicine & Rehabilitation | DX: G56.01 Carpal tunnel syndrome, right upper limb (principal) | CPT/HCPCS: 95886; 95909 ==